=== PATIENT | male | born 1960 | race African-American/Black ===

== ENCOUNTER 2018-02-11 18:42 | Inpatient (IN) | payer MEDICARE, MEDICAID ==
[~2018-02-11] VITALS: Ht 180.3 cm; Wt 106.6 kg
[~2018-02-11 18:42] MED LIST: ASPI-1169 PO; ATOR10TA PO
[2018-02-11] MEDS ORDERED: BUPR150T10 (19:48)
[2018-02-11] MEDS ORDERED: DIVA-76 (19:48)
[2018-02-11] MEDS ORDERED: ATOR40TA PO (19:48)
[2018-02-11] MEDS ORDERED: MAGNESIUM HYDROXIDE 30 ML UDC PO PRN (20:30)
[2018-02-11] MEDS ORDERED: ACETAMINOPHEN 325 MG TABLET PO PRN (20:30)
[2018-02-11] MEDS ORDERED: MAG HYDROX/AL HYDROX/SIMETH 30 ML UDC PO PRN (20:30)
[2018-02-11] MEDS ORDERED: ZOLPIDEM TARTRATE 5 MG TABLET PO PRN (20:30)
[2018-02-11 20:41] VITALS: BP 137/78
[2018-02-11 21:49] VITALS: BP 149/91
[2018-02-11] MEDS ORDERED: ASPI-605 PO (22:27)
--- NOTE | 2018-02-11 23:44 | NUR ---
ADMISSION NOTES ADMITTED THIS 58Y/O MALE PATIENT ADMIT FROM [facility] PT IS ON 5150 HOLD FOR DTS , PER HOLD PT. DEPRESSIVE ,SI ,AND SAD HOPELESS, WORTHLESS AND THOUGHT OF SI, UPON FACE TO FACE ASSESSMENT PATIENT IS A&O X3 DEPRESSED, CALM COOPERTIVE ,DENIES ANY SI HI AT THIS TIME, PT. IS POOR HISTORIAN, POOR INSIGHT ,POOR JUDGEMENT , V/S WNL, NO ACUTE DISTRESS NOTED, PT. REFUSED TO SIGN ALL ADMISSION PAPERS ,PT. STATED , MY SKIN IS INTACT, MD AWARE AND NOTIFIED OF THE ADMISSION, ENCOURAGED PT. VERBALIZED ANY FEELING CONCERN TO STAFF, ORIENT TO UNIT POLICY, WILL CONTINUE TO MONITOR FOR Q15 SAFETY AND BEHAVIOR.
--- NOTE | 2018-02-12 04:07 | NUR ---
GPS RN NOTE, PATIENT NEEDS A MEDICATION RECONCILIATION. PAGED [facility] AND INFORMED DR COLLINS MY FINDINGS. DR COLLINS SAID HE WILL DO THE MEDICATION RECONCILIATION. ALL ORDERS NOTED AND CARRIED OUT WILL CONTINUE TO MONITOR THIS PATIENT.
[2018-02-12 06:55] LABS: HEMATOCRIT 39 % (39-51); HEMOGLOBIN 12.8 g/dL (13.5-17.5); MEAN CORPUSCULAR HGB CONC 33 g/dl (31.0-36.0); MEAN CORPUSCULAR VOLUME 87 fL (80-96); PLATELET COUNT (AUTO) 212 /CMM (150-450); RDW COEFFICIENT OF VARIATION 17.7 (11.5-15.0); RED BLOOD CELL COUNT(AUTO) 4.44 MIL/uL (4.5-6.0); WHITE BLOOD COUNT (AUTO) 5.4 K/uL (4.3-11.0)
[2018-02-12] MEDS: LORAZEPAM 1 MG TABLET PO PRN ×2 (06:55→16:25)
[2018-02-12 07:31] LABS: BILIRUBIN,TOTAL 0.2 mg/dL (0.2-1.0); CREATININE 1.1 mg/dL (0.6-1.3); POTASSIUM 4.1 mmol/L (3.5-5.1); TOTAL PROTEIN, SERUM 6.9 g/dL (6.4-8.2)
[2018-02-12 08:20] VITALS: BP 150/89
[2018-02-12] MEDS: NICOTINE PATCH (14MG) 14 MG PATCH.TD24 TD SCH (08:34)
[2018-02-12 10:21] LABS: EOSINOPHILS % (MANUAL) 3 % (0-4); LYMPHOCYTES % (MANUAL) 35 % (16-48); MONOCYTES % (MANUAL) 11 % (0-11.0); NEUTROPHILS % (MANUAL) 51 (42-76)
[2018-02-12] MEDS: DIVALPROEX SODIUM 500 MG TABLET.DR PO SCH ×2 (12:59→21:15)
[2018-02-12] MEDS: BUPROPION XL 150 MG TAB.ER.24 PO SCH (12:59)
[2018-02-12 16:00] VITALS: BP 141/91
--- NOTE | 2018-02-12 16:26 | NUR ---
GPS/RN PATIENT REPORTS EXTREME ANXIETY, ADMINISTERED ATIVAN 1 MG, PER PATIENT REQUEST. WILL CONTINUE TO MONITOR.
[2018-02-12] MEDS: ASPIRIN EC 81 MG TABLET.DR PO SCH (16:47)
[2018-02-12 20:02] VITALS: BP 140/90
[2018-02-12] MEDS: ATORVASTATIN 40 MG TABLET PO SCH (21:15)
[2018-02-12] MEDS: TEMAZEPAM 15 MG CAPSULE PO PRN (21:52)
[2018-02-13] MEDS: LORAZEPAM 1 MG TABLET PO PRN ×2 (06:49→14:53)
--- NOTE | 2018-02-13 06:49 | NUR ---
GPS RN NOTES: PATIENT IS VERY ANXIOUS AND RESTLESS AND PATIENT IS REQUESTING FOR ATIVAN. VSS. ADMINISTERED ATIVAN 1MG PO ORDERED. WILL CONTINUE TO MONITOR.
[2018-02-13 08:00] VITALS: BP 140/92
[2018-02-13] MEDS: DIVALPROEX SODIUM 500 MG TABLET.DR PO SCH ×2 (08:21→21:22)
[2018-02-13] MEDS: BUPROPION XL 150 MG TAB.ER.24 PO SCH (08:21)
[2018-02-13] MEDS: ASPIRIN EC 81 MG TABLET.DR PO SCH (08:21)
[2018-02-13] MEDS: NICOTINE PATCH (14MG) 14 MG PATCH.TD24 TD SCH (08:21)
[2018-02-13 16:00] VITALS: BP 138/87
--- NOTE | 2018-02-13 16:33 | NUR ---
Initial Discharge Plan: Pt resides at [address] [place] [address] and his home number is . Per pt, he would not like to return home and would want to be transferred to a assisted facility outside of the [facility]. SW will speak to the pt, family and the MD regarding appropriate discharge plans. SW will form a safe and proper discharge plan
--- NOTE | 2018-02-13 16:34 | NUR ---
BRENT contacted the pt's mother, Sarika Sherwood and discussed potential discharge plans. Mother stated that whatever his team here at [facility] thinks is appropriate is fine for her.
[2018-02-13 20:17] VITALS: BP 137/83
[2018-02-13] MEDS: ATORVASTATIN 40 MG TABLET PO SCH (21:23)
[2018-02-13] MEDS: TEMAZEPAM 15 MG CAPSULE PO PRN (22:08)
[2018-02-14 08:00] VITALS: BP 139/86
[2018-02-14] MEDS: DIVALPROEX SODIUM 500 MG TABLET.DR PO SCH (08:14)
[2018-02-14] MEDS: NICOTINE PATCH (14MG) 14 MG PATCH.TD24 TD SCH (08:14)
[2018-02-14] MEDS: ASPIRIN EC 81 MG TABLET.DR PO SCH (08:14)
[2018-02-14] MEDS: BUPROPION XL 150 MG TAB.ER.24 PO SCH (08:14)
[2018-02-14] MEDS: LORAZEPAM 1 MG TABLET PO PRN (08:55)
--- NOTE | 2018-02-14 12:21 | NUR ---
SW spoke to the pt about his DC plan. Pt stated that he wanted to go to his brother's house but was unable to provide a phone number to confirm the discharge plan. Pt then decided that he wanted to be discharged to a homeless skilled nursing. BRENT will work on homeless skilled nursing referrals, food resources and bus tokens.
--- NOTE | 2018-02-14 12:35 | NUR ---
BRENT spoke to Arvind Keith regarding a discharge plan for the pt to go to a homeless mcc ([address] [place] [id number]) around 4:30.
--- NOTE | 2018-02-14 14:50 | NUR ---
RN NOTES PT WAS DISCHARGED AMA STATUS. PT WAS TOLD THAT DR. MESSER WANTED HIM TO WAIT SO HE COULD SPEAK WITH HIM BEFORE DECIDING TO GO. PT REFUSED AND SAID HE WANTED TO GO AGAINST MEDICAL ADVICE SO HE COULD GET TO THE CORRECTION BEFORE IT CLOSED. AMA FORM WAS SIGNED AND BELONGINGS WERE RETURNED TO PT. PT WAS GIVEN BUS TOKENS AND TAKEN TO THE BUS STATION IN ORDER TO GO TO THE CORRECTION. PT DENIED SI/HI AND DENIED AUDITORY AND VISUAL HALLUCINATIONS PRIOR TO DISCHARGE. DR. MESSER WAS MADE AWARE PT WAS GOING TO LEAVE AMA WITHOUT SPEAKING TO HIM.
--- NOTE | 2018-02-14 16:02 | NUR ---
Discharge Note: Patient, Keyur Witt, left AMA but was provided with homeless residential referrals, food referrals and three bus tokens for the pt to arrive at the recommended residential. SW spoke to Arvind at [facility] ([address] [place] [address]). Pt was on voluntary status, alert and oriented x4 (time, place, self and situation). Pt was also provided with the substance abuse referrals listed below: [facility] [address] [place] [address] Tel. [facility] [address] [place] Provider Mental Health Treatment Tele-dermatology HIV Services Telemedicine Services [facility] [address] [place] [address] [facility] [address] [place] [address]
== END 2018-02-14 14:50 | disposition left against medical advice (07) | DRG 885 ==
LOC: GPS 18:42
PROVIDERS: ADMIT Hospitalist; ATTEND Psychiatry & Neurology Psychiatry
DX: F31.30 Bipolar disorder, current episode depressed, mild or moderate severity, unspecified (principal); E66.01 Morbid (severe) obesity due to excess calories; R45.851 Suicidal ideations; E78.5 Hyperlipidemia, unspecified; F14.10 Cocaine abuse, uncomplicated; I10 Essential (primary) hypertension; F41.9 Anxiety disorder, unspecified; Z68.32 Body mass index [BMI] 32.0-32.9, adult; R74.0 Nonspecific elevation of levels of transaminase and lactic acid dehydrogenase [LDH]
CPT/HCPCS: 36415; 80053-TC; 80061-TC; 85025-TC; 87081-TC

== ENCOUNTER 2019-02-21 16:52 | Inpatient (IN) | payer MEDICARE, MEDICAID ==
[~2019-02-21] VITALS: Ht 182.9 cm; Wt 113.4 kg
[~2019-02-21 16:52] MED LIST changes: -ASPI-1169 PO; +ASPI-605 PO; -ATOR10TA PO; +ATOR40TA PO
--- NOTE | 2019-02-21 17:45 | NUR ---
PATIENT ARRIVED AMBULATORY. WITH FEELING OF DEPRESSION W/ SI, PLAN ON OVERDOSING W/ PILLS. PATIENT A&O X 4, NO ACUTE DISTRESS. PATIENT REPORTS LIVING IN AN APARTMENT AT [place]. WHEN ASKED IF PATIENT HAS ACCESS TO ANY PILLS OR MEDICATIONS, PATIENT DOES NOT HAVE ANY MEDICATIONS WITH HIM. AWAITING FOR
[2019-02-21 18:01] LABS: BASOPHILS % (AUTO) 0.6 % (0.0-2.0); EOSINOPHILS % (AUTO) 0.9 % (0.0-6.0); HEMATOCRIT 41 % (39-51); HEMOGLOBIN 13.6 g/dL (13.5-17.5); LYMPHOCYTES # (AUTO) 1.1 /CMM (0.8-4.8); LYMPHOCYTES % (AUTO) 20.4 % (20.0-44.0); MEAN CORPUSCULAR HGB CONC 33 g/dl (31.0-36.0); MEAN CORPUSCULAR VOLUME 87 fL (80-96); MONOCYTES # (AUTO) 0.5 /CMM (0.1-1.30); MONOCYTES % (AUTO) 8.9 % (2.0-12.0); NEUTROPHILS # (AUTO) 3.7 /CMM (1.8-8.9); NEUTROPHILS % (AUTO) 69.2 % (43.0-81.0); PLATELET COUNT (AUTO) 225 /CMM (150-450); RED BLOOD CELL COUNT(AUTO) 4.75 MIL/uL (4.5-6.0); WHITE BLOOD COUNT (AUTO) 5.3 K/uL (4.3-11.0)
[2019-02-21 18:08] LABS: CALCIUM, SERUM 9.5 mg/dL (8.5-10.1); CARBON DIOXIDE 29 mmol/L (21-32); CHLORIDE 105 mmol/L (98-107); CREATININE 1.4 mg/dL (0.6-1.3); GLUCOSE 172 mg/dL (74-106); POTASSIUM 4.2 mmol/L (3.5-5.1); SODIUM SERUM 142 mmol/L (136-145); UREA NITROGEN, BLOOD 22 mg/dL (7-18)
[2019-02-21 18:22] LABS: ALANINE AMINOTRANSFERASE 39 U/L (12-78); ALBUMIN 3.3 g/dL (3.4-5.0); ALCOHOL, BLOOD 35 mg/dL (0-0); ALKALINE PHOSPHATASE 74 U/L (46-116); ASPARTATE AMINOTRANSFERASE 17 U/L (15-37); BILIRUBIN,TOTAL 0.2 mg/dL (0.2-1.0); TOTAL PROTEIN, SERUM 7.3 g/dL (6.4-8.2)
[2019-02-21 18:26] LABS: ACETAMINOPHEN < 10 ug/ml (10-30)
[2019-02-21] MEDS ORDERED: IV NS 0.9% 1,000 ML BAG IV ONE (18:30)
--- NOTE | 2019-02-21 19:19 | NUR ---
PT RECEIVED FROM ZAKIYA MOTA FOR BETO. PT IN BED AAOX4. NAD.
--- NOTE | 2019-02-21 19:20 | NUR ---
PT RECEIVED FROM ZAKIYA MOTA FOR BETO. IN BED AAOX4. NAD, BREATHING EVEN AND UNLABORED.
--- NOTE | 2019-02-21 19:22 | NUR ---
PATIENT RESTING ON BED. NO ACUTE DISTRESS. AWAITING URINE SAMPLE, PATIENT AWARE. REOPORT GIVEN TO RUTH ANN SIGALA FOR BETO
[2019-02-21 19:45] LABS: APPEARANCE,URINE Clear (CLEAR); BILIRUBIN,URINE SMALL (NEGATIVE); BLOOD, URINE Negative Ery/uL (NEGATIVE); COLOR,URINE Yellow (YELLOW); KETONES,URINE 15 (NEGATIVE); LEUKOCYTE ESTERASE ,URINE Negative (NEGATIVE); NITRITE, URINE Negative (NEGATIVE); PH,URINE 6.5 (5.0-8.0); PROTEIN,URINE 30 mg/dl (NEGATIVE); UGLUCOSE Negative (NEGATIVE); UROBILINOGEN,URINE 0.2 EU/dL (0.2)
[2019-02-21 20:04] LABS: BACTERIA,URINE Rare /HPF (None Seen); HYALINE CASTS, URINE Few /LPF (None Seen); MUCUS,URINE Few /LPF (None Seen); RBC,URINE NONE SEEN /HPF (0-2); SQUAMOUS EPITHELIAL CELL,UR None Seen /HPF (None Seen); WBC,URINE NONE SEEN /HPF (0-3)
--- NOTE | 2019-02-21 21:44 | NUR ---
REPORT GIVEN TO ZAKIYA LAWLER FOR BETO. PT GOING TO 214
--- NOTE | 2019-02-21 21:55 | NUR ---
PT BROUGHT UP TO UNIT BY EMT. PT STABLE FOR TRANSPORT. NAD, BRAETHING EVEN AND UNLABORED. PT REFUSED VS TO BE TAKEN.
--- NOTE | 2019-02-21 22:00 | NUR ---
GPS HEALTH AND WELLNESS MANAGER NOTE: ADMITTED A 59 YEAR OLD MALE FROM [facility] ER, INITIALLY CAME FROM HOME. PATIENT ARRIVED TO THE UNIT AEOUND 2200 VIA WHEELCHAIR, ACCOMPANIED BY 1 MALE ER STAFF AND PLACED PATIENT IN HIS ROOM. PATOIENT ADMITTED ON VOLUNTARY STATUS. PATIENT IS ADMITTED FOR DEPRESSION WITH SUICIDAL IDEATION X 1 WEEK AND PLAN TO OVERDOSE ON PILLS. PATIENT IS A/O X3-4, SHOWS NO S/S OF ANY PAIN. DENIES ANY SI/HI AT THIS TIME. PATIENT IS CALM, COOPERATIVE, DEPRESSED, OBEYS INSTRUCTIONS, WELL GROOMED, THOUGHT PROCESS INTACT. APPROPRIATE BUT ANXIOUS. BELONGINGS INVENTORIED AND CHECKED FOR CONTRABAND. PATIENT IS A CURRENT SMOKER, OFFERED NICOTINE PATCH AND REFUSED, HE IS A FULL CODE. SKIN WARM DRY AND INTACT, MRSA SCREEN DONE IN ER. DENIES ANY PAST MED.HX AND SURGERY. CONSENTS SIGNED. PATIENT IS UNDER THE PSYCHIATRIC CARE OF DR. MESSER, MEDICAL CARE OF DR. HOOK. NO APPARENT DISTRESS NOTED. BED LOCKED AND PLACED ON LOWEST POSITION TO MAINTAIN SAFETY. WILL CONTINUE TO MONITOR Q 15 MINS. FOR SAFETY AND BEHAVIOR.
[2019-02-21] MEDS ORDERED: ACETAMINOPHEN 325 MG TABLET PO PRN (22:30)
[2019-02-21] MEDS ORDERED: MAG HYDROX/AL HYDROX/SIMETH 30 ML UDC PO PRN (22:30)
[2019-02-21] MEDS ORDERED: MAGNESIUM HYDROXIDE 30 ML UDC PO PRN (22:30)
[2019-02-21] MEDS ORDERED: LORAZEPAM 0.5 MG TABLET PO PRN (22:30)
[2019-02-22 07:26] LABS: BASOPHILS % (AUTO) 0.3 % (0.0-2.0); EOSINOPHILS % (AUTO) 1.4 % (0.0-6.0); HEMATOCRIT 39 % (39-51); HEMOGLOBIN 12.7 g/dL (13.5-17.5); LYMPHOCYTES # (AUTO) 1.3 /CMM (0.8-4.8); LYMPHOCYTES % (AUTO) 25.2 % (20.0-44.0); MEAN CORPUSCULAR HGB CONC 33 g/dl (31.0-36.0); MEAN CORPUSCULAR VOLUME 87 fL (80-96); MONOCYTES # (AUTO) 0.7 /CMM (0.1-1.30); MONOCYTES % (AUTO) 13.3 % (2.0-12.0); NEUTROPHILS # (AUTO) 3.1 /CMM (1.8-8.9); NEUTROPHILS % (AUTO) 59.8 % (43.0-81.0); PLATELET COUNT (AUTO) 201 /CMM (150-450); WHITE BLOOD COUNT (AUTO) 5.1 K/uL (4.3-11.0)
[2019-02-22 07:42] LABS: CHOLESTEROL 219 mg/dL (<200); HDL CHOLESTEROL 49 mg/dL (40-60); LDL 147 mg/dL (0-99); TRIGLYCERIDES 97 mg/dL (30-150)
[2019-02-22 07:45] LABS: ALBUMIN 2.9 g/dL (3.4-5.0); BILIRUBIN,TOTAL 0.2 mg/dL (0.2-1.0); CALCIUM, SERUM 8.9 mg/dL (8.5-10.1); CREATININE 1.2 mg/dL (0.6-1.3); POTASSIUM 5.1 mmol/L (3.5-5.1); TOTAL PROTEIN, SERUM 6.5 g/dL (6.4-8.2)
[2019-02-22 08:00] VITALS: BP 129/76
[2019-02-22] MEDS ORDERED: DIVA250T47 PO (08:23)
[2019-02-22] MEDS ORDERED: BUPR-51 PO (08:23)
[2019-02-22] MEDS ORDERED: TEMA15CA5 PO (08:23)
[2019-02-22] MEDS ORDERED: LORA-259 PO (08:23)
[2019-02-22] MEDS: DIVALPROEX SODIUM 500 MG TABLET.DR PO SCH ×2 (11:08→21:23)
--- NOTE | 2019-02-22 11:36 | NUR ---
Initial Discharge Plan: Pt currently rents a room in a house located at [address] [place], [place] [id number]; ([phone]). Per pt, he would like to return to this home once he is stabilized on his medications. BRENT will work with the pt and the MD regarding appropriate discharge planning. SW will form a safe and proper discharge plan.
--- NOTE | 2019-02-22 15:01 | NUR ---
Group note: Pt was encouraged to join group therapy session on 02/22/19 at 2:00pm. Pt. unable to attend group.
[2019-02-22 16:00] VITALS: BP 138/87
--- NOTE | 2019-02-22 19:30 | NUR ---
GPS RN NOTE, RECEIVED PATIENT AWAKE AND IN BED, NO S/S OR COMPLAINTS OF PAIN AT THIS TIME. PATIENT IS DISPLAYING NO S/S OF APPARENT DISTRESS AT THIS TIME. PATIENT BREATHING IS UNLABORED WITH EQUAL RISE AND FALL OF THE CHEST. PATIENT IS ALERT AND ORIENTED X 4 ON ROOM AIR WITH A SPO2 OF 98%. PATIENT IS MED COMPLAINT, DISORGANIZED, DEPRESSED, COOPERATIVE, AND ANXIOUS AT TIMES. PATIENT DENIES SUICIDE AND HOMICIDAL IDEATIONS AT THIS TIME. PATIENT ASSISTED WITH TURNING AND REPOSITIONING Q2HR AND PRN FOR COMFORT AND CIRCULATION. PATIENT HAS NO NEEDS AT THIS TIME. PATIENT EDUCATED ON THE USE OF THE CALL SAHU. PATIENT BED SIDE RAILS ARE UP X 2 FOR SAFETY, BED IS LOCKED, AND LOW WILL CONTINUE TO MONITOR AND MAINTAIN SAFETY.
[2019-02-22 19:50] VITALS: BP 142/90
[2019-02-22] MEDS: LORAZEPAM 0.5 MG TABLET PO PRN (20:27)
--- NOTE | 2019-02-22 20:27 | NUR ---
GPS RN NOTE, PATIENT HAS A COMPLAINT OF FEELING ANXIOUS AND IS REQUESTING ATIVAN AT THIS TIME. PATIENT VITAL SIGNS ARE STABLE. GAVE ATIVAN 1MG PO Q6HR PRN ORDERED. WILL REASSESS FOR ANXIETY AND I WILL CONTINUE TO MONITOR THIS PATIENT.
[2019-02-23 08:00] VITALS: BP 134/83
[2019-02-23] MEDS: BUPROPION XL 150 MG TAB.ER.24 PO SCH (08:57)
[2019-02-23] MEDS: DIVALPROEX SODIUM 500 MG TABLET.DR PO SCH ×2 (08:57→21:06)
[2019-02-23 16:00] VITALS: BP 126/81
--- NOTE | 2019-02-23 19:30 | NUR ---
GPS RN NOTE, RECEIVED PATIENT AWAKE AND IN BED, NO S/S OR COMPLAINTS OF PAIN AT THIS TIME. PATIENT IS DISPLAYING NO S/S OF APPARENT DISTRESS AT THIS TIME. PATIENT BREATHING IS UNLABORED WITH EQUAL RISE AND FALL OF THE CHEST. PATIENT IS ALERT AND ORIENTED X 4 ON ROOM AIR WITH A SPO2 OF 98%. PATIENT IS MED COMPLAINT, DEPRESSED, COOPERATIVE, AND ANXIOUS AT TIMES. PATIENT DENIES SUICIDE AND HOMICIDAL IDEATIONS AT THIS TIME. PATIENT ASSISTED WITH TURNING AND REPOSITIONING Q2HR AND PRN FOR COMFORT AND CIRCULATION. PATIENT HAS NO NEEDS AT THIS TIME. PATIENT EDUCATED ON THE USE OF THE CALL SAHU. PATIENT BED SIDE RAILS ARE UP X 2 FOR SAFETY, BED IS LOCKED, AND LOW WILL CONTINUE TO MONITOR AND MAINTAIN SAFETY.
[2019-02-23 19:33] VITALS: BP 132/80
[2019-02-23] MEDS: LORAZEPAM 0.5 MG TABLET PO PRN (21:06)
[2019-02-23] MEDS: ZOLPIDEM TARTRATE 5 MG TABLET PO PRN (22:28)
--- NOTE | 2019-02-23 22:28 | NUR ---
GPS RN NOTE, PATIENT HAS A COMPLAINT OF NOT BEING ABLE TO SLEEP AND IS REQUESTING AMBIEN AT THIS TIME. PATIENT VITAL SIGNS ARE STABLE. GAVE AMBIEN 5 MG PO HS PRN ORDERED. WILL REASSESS FOR INSOMNIA AND I WILL CONTINUE TO MONITOR THIS PATIENT.
[2019-02-24 08:00] VITALS: BP 125/86
[2019-02-24] MEDS: DIVALPROEX SODIUM 500 MG TABLET.DR PO SCH ×2 (08:31→21:19)
[2019-02-24] MEDS: BUPROPION XL 150 MG TAB.ER.24 PO SCH (08:31)
[2019-02-24] MEDS: DIVALPROEX SODIUM 250 MG TABLET.DR PO SCH (17:08)
[2019-02-24 20:58] VITALS: BP 130/82
[2019-02-24] MEDS: LORAZEPAM 0.5 MG TABLET PO PRN (21:18)
[2019-02-25 08:00] VITALS: BP 142/86
[2019-02-25] MEDS: DIVALPROEX SODIUM 500 MG TABLET.DR PO SCH ×2 (08:48→20:44)
--- NOTE | 2019-02-25 10:15 | NUR ---
SW conducted a substance abuse intervention with the pt due to his cocaine and cannabis use.
[2019-02-25] MEDS: DIVALPROEX SODIUM 250 MG TABLET.DR PO SCH (12:24)
--- NOTE | 2019-02-25 14:57 | NUR ---
GROUP NOTE: SW prompted pt to attend [facility] therpay on 02/25/19 at 2:00pm. Pt refused to attend.
[2019-02-25 16:00] VITALS: BP 141/90
[2019-02-25 20:12] VITALS: BP 119/63
[2019-02-25] MEDS: ZOLPIDEM TARTRATE 5 MG TABLET PO PRN (20:44)
[2019-02-26 08:00] VITALS: BP 150/79
[2019-02-26] MEDS: DIVALPROEX SODIUM 500 MG TABLET.DR PO SCH ×2 (08:56→21:47)
[2019-02-26] MEDS: DIVALPROEX SODIUM 250 MG TABLET.DR PO SCH (12:41)
--- NOTE | 2019-02-26 15:05 | NUR ---
Group Note: Pt attended group therapy on 02/26/19 at 2pm discussing the topic of their goals in areas of both their hospitalization and their personal life. 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 I think that when I focus on the lives of others and do good for them, I feel better about myself and my life.� O: Pt was present during the group session and was engaged. Pt appeared to be in a euthymic mood and presented with a calm affect. Pt maintained appropriate eye contact and had an appropriate tone of voice. Correction through the group, the pt appeared to be anxious and when the SW asked him how he was feeling he stated that he was drifting off and confirmed that he was not triggered by another pt. A: Pt expressed that he understands that he is in need of structure in his life. Pt stated that when he was focusing on his website he also had a sponsor and would attend meetings that would keep his schedule in check. Pt stated that the structure can help him stay away from his problems. P: Pt will continue milieu treatment and medication stabilization.
[2019-02-26 16:00] VITALS: BP 134/77
--- NOTE | 2019-02-26 18:43 | NUR ---
MS RN CALLED DR. VALENTINE REGARDING A SWOLLEN TOOTH W/ ORDER MADE AND CARRIED OUT.
[2019-02-26] MEDS: CLINDAMYCIN HCL 150 MG CAPSULE PO SCH (19:53)
[2019-02-26] MEDS: LORAZEPAM 0.5 MG TABLET PO PRN (19:54)
[2019-02-26 20:21] VITALS: BP 141/87
[2019-02-26] MEDS: ZOLPIDEM TARTRATE 5 MG TABLET PO PRN (21:48)
[2019-02-27 08:00] VITALS: BP 122/73
[2019-02-27] MEDS: DIVALPROEX SODIUM 500 MG TABLET.DR PO SCH ×2 (08:27→21:24)
[2019-02-27] MEDS: CLINDAMYCIN HCL 150 MG CAPSULE PO SCH ×3 (08:27→18:15)
[2019-02-27] MEDS: DIVALPROEX SODIUM 250 MG TABLET.DR PO SCH (14:16)
--- NOTE | 2019-02-27 15:20 | NUR ---
Group Note: SW prompted pt to attend group therapy on 02/27/19 at 2pm discussing patients right but the pt refused to attend. He stated that he did not sleep the previous night and that he would like to take a nap.
[2019-02-27 16:00] VITALS: BP 132/77
[2019-02-27] MEDS: LORAZEPAM 0.5 MG TABLET PO PRN (18:16)
--- NOTE | 2019-02-27 18:16 | NUR ---
RN NOTES ADMINISTERED ATIVAN 1 MG PO PRN FOR ANXIETY PER PATIENT REQUEST, V/S TAKEN BP-132/77, P-89, CONTINUED MONITORING.
[2019-02-27 20:00] VITALS: BP 129/77
[2019-02-27] MEDS: ZOLPIDEM TARTRATE 5 MG TABLET PO PRN (21:24)
[2019-02-28 08:00] VITALS: BP 139/99
[2019-02-28] MEDS: CLINDAMYCIN HCL 150 MG CAPSULE PO SCH ×3 (08:15→17:14)
[2019-02-28] MEDS: DIVALPROEX SODIUM 500 MG TABLET.DR PO SCH ×2 (08:15→21:03)
[2019-02-28] MEDS: LORAZEPAM 0.5 MG TABLET PO PRN (08:16)
--- NOTE | 2019-02-28 12:22 | NUR ---
BRENT sent a referral to [facility] with attention to Torito and CJ to the fax number: [phone].
--- NOTE | 2019-02-28 12:24 | NUR ---
BRENT faxed a referral to [facility] with attention to Sasha and Shaylee to the fax number: [phone].
[2019-02-28] MEDS: DIVALPROEX SODIUM 250 MG TABLET.DR PO SCH (12:40)
--- NOTE | 2019-02-28 13:10 | NUR ---
ALYSIA from [facility] ([phone]) contacted the SW and stated that the pt was accepted to their facility upon discharge.
--- NOTE | 2019-02-28 15:25 | NUR ---
Group Note: Pt was encouraged to attend group therapy on 02/28/19 at 2pm discussing the topic of depression but the pt stated that he would like to take his afternoon nap instead because he did not sleep well.
[2019-02-28 16:00] VITALS: BP 128/87
[2019-02-28 20:00] VITALS: BP 153/74
[2019-03-01 08:00] VITALS: BP 133/92
[2019-03-01] MEDS: CLINDAMYCIN HCL 150 MG CAPSULE PO SCH (08:06)
[2019-03-01] MEDS: DIVALPROEX SODIUM 500 MG TABLET.DR PO SCH (08:06)
--- NOTE | 2019-03-01 09:45 | NUR ---
RN-CO: Patient was seen and examined by Dr Narvaez and ordered to discharge patient today. Patient is calm and cooperative to care. Denied suicidal and homicidal ideation. Denied auditory and visual hallucination. No acute distress noted, V/S: 133/92,98,18,90,98 %,0/10. Report was given to Shira SIGALA. Patient refused to notify any family members not friends for discharge. He signed all discharge papers after RN explained to him and he verbalized understanding.
--- NOTE | 2019-03-01 09:59 | NUR ---
BRENT faxed a clearance note and a medical consent form to [facility] to the fax number: [phone].
--- NOTE | 2019-03-01 12:36 | NUR ---
Group Note: Pt attended group therapy on 03/01/19 at 11:30 discussing the topic of social supports for when they are in the hospital and for once they are discharged. S: Pt stated, �My support group is my oriental orthodox. They provide me with spiritual support which is very important. I think that helps me in everyday life and to deal with difficult situations. But also think it takes a lot of work to maintain your support group. You have to do your part and always work on it.� O: Pt was present during the group session and was engaged. Pt appeared to be in a euthymic mood and presented with a calm affect. Pt maintained appropriate eye contact and had an appropriate tone of voice. A: Pt. was open and shared about personal life experiences where he has also been a support system to others, and the many lessons he has learned about the importance of helping others in need while maintaining healthy boundaries. P: Pt will continue milieu treatment and medication stabilization.
--- NOTE | 2019-03-01 13:39 | NUR ---
RN-CO: Patient was picked up by [facility], report was given to Shira SIGALA in [facility] and to EMT. Valuables and clothes was given back.
--- NOTE | 2019-03-01 13:47 | NUR ---
Discharge Note: [facility] ([facility] located at [address] [place] [address]; ([phone]). Pt was transported via [facility] at 1PM. Pt did not want family to be notified. Upon discharge, the pt appeared to be in a euthymic mood and presented with a calm and cooperative affect. Pt denied both suicidal and homicidal ideation as well as auditory and visual hallucinations. Pt will be under the care of his psychiatrist, Dr. Narvae[place], [place] [address] [facility] [address] [address]; and his time study statistician, Dr. Sam[place], [place] [address] [place] [address]; . Substance Abuse Referrals [facility] [address] [facility] [place] [address] Tel. �[facility] �Primary Care �[facility] [address] MD Provider �Mental Health Treatment �Tele-dermatology �HIV Services �Telemedicine Services [facility] [address] [place] [address] [facility] [address] [place] [address] Smoking Cessation Referrals: [facility] 800-LUNGUSA [facility] [phone] Pt has a phone meeting called [facility] scheduled for 03/02/19 at 10AM with the phone number [phone].
--- NOTE | 2019-03-15 16:08 | NUR ---
15 Day Substance Abuse Follow Up: Pt is exempt from the follow up due to his discharge to a retirement facility called [facility].
== END 2019-03-01 13:45 | DRG 885 ==
LOC: ER 16:56 → GPS 21:14
PROVIDERS: ADMIT Psychiatry & Neurology Psychiatry; ATTEND Internal Medicine
DX: F31.30 Bipolar disorder, current episode depressed, mild or moderate severity, unspecified (principal); N17.0 Acute kidney failure with tubular necrosis; R45.851 Suicidal ideations; I10 Essential (primary) hypertension; E86.0 Dehydration; Z88.8 Allergy status to other drugs, medicaments and biological substances; Z79.82 Long term (current) use of aspirin; Z79.899 Other long term (current) drug therapy; E78.5 Hyperlipidemia, unspecified; F10.10 Alcohol abuse, uncomplicated; F12.90 Cannabis use, unspecified, uncomplicated; F14.10 Cocaine abuse, uncomplicated; F29 Unspecified psychosis not due to a substance or known physiological condition; Z68.33 Body mass index [BMI] 33.0-33.9, adult; Z91.5 Personal history of self-harm; Z83.3 Family history of diabetes mellitus; Z81.8 Family history of other mental and behavioral disorders; Y90.1 Blood alcohol level of 20-39 mg/100 ml; F41.9 Anxiety disorder, unspecified
CPT/HCPCS: 36415; 80048-TC; 80053-TC; 80061-TC; 80076-TC; 80164-TC; 80305; 81000-TC; 85025-TC; 87081-TC; G0480; J7030

== ENCOUNTER 2019-05-30 12:27 | Inpatient (IN) | payer MEDICARE, MEDICAID ==
[~2019-05-30] VITALS: Ht 180.3 cm; Wt 113.4 kg
--- NOTE | 2019-05-30 12:32 | NUR ---
PT C/O SUICIDAL THOUGHTS x 3 DAYS, TO OVERDOSE. "I'M FEELING DEPRESSED", PT IS AAOX4, NOT IN RESPIRATORY DISTRESS, HOOKED TO MONITOR, KEPT RESTED AND COMFORTABLE, WILL CONTINUE TO MONITOR.
--- NOTE | 2019-05-30 12:44 | NUR ---
URINE SPECIMEN COLLECTED AND SENT TO LAB.
--- NOTE | 2019-05-30 12:47 | NUR ---
SEEN AND EXAMINED BY ELLIOTT DEL TORO.
[2019-05-30 13:01] LABS: BASOPHILS % (AUTO) 0.8 % (0.0-2.0); EOSINOPHILS % (AUTO) 1.2 % (0.0-6.0); HEMATOCRIT 46 % (39-51); HEMOGLOBIN 15.1 g/dL (13.5-17.5); LYMPHOCYTES # (AUTO) 1.2 /CMM (0.8-4.8); LYMPHOCYTES % (AUTO) 24.6 % (20.0-44.0); MEAN CORPUSCULAR HGB CONC 33 g/dl (31.0-36.0); MEAN CORPUSCULAR VOLUME 87 fL (80-96); MONOCYTES # (AUTO) 0.6 /CMM (0.1-1.30); MONOCYTES % (AUTO) 12.6 % (2.0-12.0); NEUTROPHILS # (AUTO) 3.1 /CMM (1.8-8.9); NEUTROPHILS % (AUTO) 60.8 % (43.0-81.0); PLATELET COUNT (AUTO) 223 /CMM (150-450); RED BLOOD CELL COUNT(AUTO) 5.23 MIL/uL (4.5-6.0); WHITE BLOOD COUNT (AUTO) 5.1 K/uL (4.3-11.0)
[2019-05-30 13:04] LABS: APPEARANCE,URINE Clear (CLEAR); BILIRUBIN,URINE SMALL (NEGATIVE); BLOOD, URINE Negative Ery/uL (NEGATIVE); COLOR,URINE Yellow (YELLOW); KETONES,URINE 15 (NEGATIVE); LEUKOCYTE ESTERASE ,URINE Negative (NEGATIVE); NITRITE, URINE Negative (NEGATIVE); PROTEIN,URINE Trace mg/dl (NEGATIVE); UGLUCOSE Negative (NEGATIVE); UROBILINOGEN,URINE 0.2 EU/dL (0.2)
--- NOTE | 2019-05-30 13:04 | NUR ---
FOOD TRAY PROVIDED.
[2019-05-30 13:07] LABS: BACTERIA,URINE Rare /HPF (None Seen); RBC,URINE 0-2 /HPF (0-2); SQUAMOUS EPITHELIAL CELL,UR Rare /HPF (None Seen); WBC,URINE 0-2 /HPF (0-3)
[2019-05-30 13:07] LABS: CALCIUM, SERUM 9.5 mg/dL (8.5-10.1); CREATININE 1.7 mg/dL (0.6-1.3); POTASSIUM 4.1 mmol/L (3.5-5.1)
[2019-05-30 13:21] LABS: ALBUMIN 3.5 g/dL (3.4-5.0); BILIRUBIN,DIRECT 0.1 mg/dL (0.0-0.2); BILIRUBIN,TOTAL 0.1 mg/dL (0.2-1.0)
[2019-05-30] MEDS ORDERED: DIVA-78 PO (15:06)
[2019-05-30] MEDS ORDERED: BUPR150T5 PO (15:06)
[2019-05-30] MEDS ORDERED: TEMA15CA5 PO (15:06)
[2019-05-30] MEDS ORDERED: LORA1TAB PO (15:06)
--- NOTE | 2019-05-30 15:13 | NUR ---
CALLED FOR GPS BED, TURNED IN MOVE SHEET
--- NOTE | 2019-05-30 15:41 | NUR ---
PT GOING TO ROOM 216-A GPS
--- NOTE | 2019-05-30 16:10 | NUR ---
PT REPORT GIVEN TO ZAKIYA ROPER FOR BETO.
[2019-05-30] MEDS ORDERED: MAG HYDROX/AL HYDROX/SIMETH 30 ML UDC PO PRN (17:30)
[2019-05-30] MEDS ORDERED: ZOLPIDEM TARTRATE 5 MG TABLET PO PRN (17:30)
[2019-05-30] MEDS ORDERED: ACETAMINOPHEN 325 MG TABLET PO PRN (17:30)
[2019-05-30] MEDS ORDERED: BLOOD SUGAR DIAGNOSTIC 1 EACH STRIP IN ONE (17:30)
[2019-05-30] MEDS ORDERED: MAGNESIUM HYDROXIDE 30 ML UDC PO PRN (17:30)
[2019-05-30 18:21] VITALS: BP 134/83
--- NOTE | 2019-05-30 18:47 | NUR ---
HOSPITALITY HOUSE SUPERVISOR NOTE: PATIENT IS A 59 YEAR OLD MALE ADMITTED TO [facility] ER. PATIENT IS ON A 5150 HOLD FOR DTS. PER HOLD, "PATIENT IS BIB A FRIEND COMPLAINING OF SI WITH A PLAN TO OD. PATIENT COMPLAINS OF DEPRESSION. PATIENT IS ALERT AND ORIENTED IN ALL SPHERES. HE IS DEPRESSED AND HAS DECREASED SLEEP. PATIENT IS SUICIDAL WITH A PLAN TO OD. PATIENT FEELS HIS MEDICATION IS NOT WORKING. PATIENT ALSO STATES HE IS UPSET OVER HIS PLACE IN LIFE." PATIENT IS CALM AND COOPERATIVE WITH PLAN OF CARE. CONSENTS SIGNED. MRSA SWAB TAKEN IN ER. VSS. NO ACUTE DISTRESS NOTED. NO COMPLAINTS. PATIENT STATES THAT BEFORE HE CAME HERE, HE WAS HAVING SI AND AND "A MILLION THOUGHTS CAME TO MY MIND" BUT OF RIGHT NOW, HE DENIES SI AND STATES THAT HE WILL INFORM A STAFF MEMBER IF HE IS HAVING SI. PATIENT DENIES SI/HI VAH AT THIS TIME. FLAT AFFECT. DEPRESSED MOOD. AMBULATORY WITH STEADY GAIT. ALLERGIES INPUT. CODE STATUS UPDATED (FULL CODE). CLEAR SPEECH. GOOD ATTENTION SPAN. ABLE TO FOCUS. WILL INITIATE Q 15 MINUTE MONITORING FOR SAFETY AND BEHAVIOR PER GPS PROTOCOL. ALERT X3. RESPONDS APPROPRIATELY. PATIENT'S RIGHTS HANDBOOK GIVEN WITH GUIDE TO PRESCRIPTIONS. SKIN INTACT BESIDES RIGHT ARM SCAR, PHOTO TAKEN AND IN CHART. PATIENT CONTINENT. LAST BM 05/30/2019. DR MESSER AND HELADIO SOSA BOTH AWARE OF ADMISSION AND FOR MED RECON WITH ADMITTING ORDERS ALONG WITH PSYCHIATRIC ORDERS.
[2019-05-30 20:21] VITALS: BP 121/69
[2019-05-31 07:10] LABS: ALBUMIN 2.9 g/dL (3.4-5.0); BILIRUBIN,TOTAL 0.1 mg/dL (0.2-1.0); CALCIUM, SERUM 8.4 mg/dL (8.5-10.1); CREATININE 1.3 mg/dL (0.6-1.3); POTASSIUM 4.2 mmol/L (3.5-5.1); TOTAL PROTEIN, SERUM 6.7 g/dL (6.4-8.2)
[2019-05-31 08:00] VITALS: BP 123/84
[2019-05-31] MEDS: LORAZEPAM 0.5 MG TABLET PO PRN ×2 (09:11→21:52)
--- NOTE | 2019-05-31 09:12 | NUR ---
RN NOTE: PATIENT IS COMPLAINING OF ANXIETY. PRN ATIVAN GIVEN.
[2019-05-31 09:51] LABS: CHOLESTEROL 171 mg/dL (<200); HDL CHOLESTEROL 44 mg/dL (40-60); LDL 109 mg/dL (0-99); TRIGLYCERIDES 83 mg/dL (30-150)
[2019-05-31 10:21] LABS: THYROID STIMULATING HORMONE 1.783 uIU/mL (0.358-3.74)
--- NOTE | 2019-05-31 11:52 | NUR ---
BRENT conducted a substance abuse intervention with the pt due to his history with alcohol and drug abuse.
[2019-05-31] MEDS: LITHIUM CARBONATE (300 MG CAP) 300 MG CAPSULE PO SCH ×2 (12:49→21:41)
[2019-05-31] MEDS: BUPROPION XL 150 MG TAB.ER.24 PO SCH (12:49)
--- NOTE | 2019-05-31 14:44 | NUR ---
Pt did not give permission to disclose information to the individuals listed on his face sheet. Due to [facility] guidelines, the pt is not gravely disabled and the SW will abide by the request.
--- NOTE | 2019-05-31 15:00 | NUR ---
GROUP NOTE: SW encourage pt to participate in group therapy on this present day discussing the topic of "support systems." Pt stated that he did not want to participate as this topic made him sad, stating, "my girlfriend was my only support system ands now shes ." Pt reported that his mother and brother were not a good support system and stated that he refused for anyone to contact them stating, "I don't want them involved in my life." Pt reported that he does not have any other support system.
--- NOTE | 2019-05-31 15:51 | NUR ---
Initial Discharge Plan: Pt currently resides at [address] [place] [address]; ([phone]). Per pt, he wants to be at a halfway facility. SW will work with the pt and the MD regarding appropriate discharge planning. SW will form a safe and proper discharge.
[2019-05-31 16:00] VITALS: BP 138/86
[2019-05-31] MEDS ORDERED: LIDOCAINE 5% (PATCH) 1 EA PATCH TP SCH (18:00)
--- NOTE | 2019-05-31 18:09 | NUR ---
RN NOTE: PATIENT IS REQUESTING LIDOCAINE PATCH AT 2100. DOSE TIME CHANGED PER REQUEST.
--- NOTE | 2019-05-31 20:00 | NUR ---
GPS RN notes Pt refused to have vital signs check. Pt states "I'm fine". Educate Pt about important to have vital signs check regularly. Pt verbalize understanding. Pt keep refusing. Informed and notify Charge nurse ZAKIYA Abraham. Will continue to monitor Q 15 mins check.
[2019-05-31] MEDS: LIDOCAINE 5% (PATCH) 1 EA PATCH TP SCH (21:42)
--- NOTE | 2019-05-31 21:52 | NUR ---
GPS RN notes Pt is feeling anxious. Administered Ativan 0.5 mg/2 tabs/PO as ordered per Pt request. Instructed to call. Will continue to monitor Q 15 mins check.
[2019-05-31 22:00] VITALS: BP 122/83
--- NOTE | 2019-05-31 22:56 | NUR ---
GPS RN notes Administered Maalox Susp 30 ml/1 unit dose cup/PO as ordered for indigestion per Pt request.
[2019-06-01 08:00] VITALS: BP 117/65
[2019-06-01] MEDS: LITHIUM CARBONATE (300 MG CAP) 300 MG CAPSULE PO SCH ×2 (08:39→21:11)
[2019-06-01] MEDS: BUPROPION XL 150 MG TAB.ER.24 PO SCH (08:39)
[2019-06-01] MEDS: LORAZEPAM 0.5 MG TABLET PO PRN ×2 (08:55→21:12)
--- NOTE | 2019-06-01 09:00 | NUR ---
GPS/RN-NOTES PATIENT REQUESTING ATIVAN. STATED" I NEED MY ATIVAN FOR MY ANXIETY". ATIVAN 1MG P.O GIVEN PRN ORDER. WILL CONT. MONITORING FOR SAFETY AND BEHAVIOR.
--- NOTE | 2019-06-01 10:00 | NUR ---
GPS/RN-NOTES PATIENT SLEEPING IN BED WITH BREATHING EVEN AND NONLABORED EASILY AROUSE.
[2019-06-01 16:00] VITALS: BP 130/89
[2019-06-01 20:55] VITALS: BP 128/79
[2019-06-01] MEDS: LIDOCAINE 5% (PATCH) 1 EA PATCH TP SCH (21:12)
[2019-06-02 08:00] VITALS: BP 150/83
[2019-06-02] MEDS: LORAZEPAM 0.5 MG TABLET PO PRN (09:36)
[2019-06-02] MEDS: LITHIUM CARBONATE (300 MG CAP) 300 MG CAPSULE PO SCH ×2 (09:36→21:00)
[2019-06-02] MEDS: BUPROPION XL 150 MG TAB.ER.24 PO SCH (09:36)
--- NOTE | 2019-06-02 09:40 | NUR ---
GPS RN NOTE PATIENT STATES " I AM ANXIOUS AND NEED MY ATIVAN FOR ANXIETY". ATIVAN PRN 1MG GIVEN. WILL CONTINUE TO MONITOR FREQUENTLY [id number].
[2019-06-02 16:00] VITALS: BP 129/75
--- NOTE | 2019-06-02 19:30 | NUR ---
GPS RN NOTE, RECEIVED PATIENT AWAKE AND IN JULIANA CHAIR, NO S/S OR COMPLAINTS OF PAIN AT THIS TIME. PATIENT IS DISPLAYING NO S/S OF APPARENT DISTRESS AT THIS TIME. PATIENT BREATHING IS UNLABORED WITH EQUAL RISE AND FALL OF THE CHEST. PATIENT IS ALERT AND ORIENTED X 3 ON ROOM AIR WITH A SPO2 99 %. PATIENT IS COMPLIANT WITH MEDICATION, DISORGANIZED, CALM, COOPERATIVE. PATIENT DENIES SUICIDE IDEATIONS AND HOMICIDAL IDEATIONS AT THIS TIME. PATIENT ASSISTED WITH TURNING AND REPOSITIONING Q2 HR AND PRN FOR COMFORT AND CIRCULATION. PATIENT HAS NO NEEDS AT THIS TIME. PATIENT EDUCATED ON THE USE OF THE CALL SAHU. PATIENT BED SIDE RAILS UP X 2 FOR SAFETY, BED IS LOCKED AND LOW. WILL CONTINUE TO MONITOR Q15 MIN WITH THE HELP OF STAFF TO MAINTAIN SAFETY.
--- NOTE | 2019-06-02 20:00 | NUR ---
GPS RN NOTE, PATIENT REFUSED TO HAVE SKIN EXAM AND PHOTOGRAPHS TAKEN TODAY. OFFERED TO TAKE PHOTOS THREE TIMES AND STILL PATIENT REFUSED STATING, " NO I DON'T WANT ANY PHOTOS TAKEN TONIGHT ". EDUCATED PATIENT ON HOSPITAL POLICY FOR SKIN EXAMS AND PHOTOS. WILL CONTINUE TO MONITOR THIS PATIENT.
[2019-06-02] MEDS: LIDOCAINE 5% (PATCH) 1 EA PATCH TP SCH (21:00)
--- NOTE | 2019-06-02 21:00 | NUR ---
GPS RN NOTE, PATIENT REFUSED LITHIUM CARBONATE 300 MG 1 CAP PO Q12HR PRN AND A LIDODERM PATCH 5 % 1 PATCH TD Q24 HR. OFFERED BOTH MEDICATIONS THREE TIMES AND STILL PATIENT REFUSED STATING, " I DON'T WANT A PATCH OR MEDICATION TONIGHT ". EDUCATED PATIENT ON RISKS AND BENEFITS OF TAKING AND REFUSING AFOREMENTIONED MEDICATIONS. WILL CONTINUE TO MONITOR THIS PATIENT.
[2019-06-02 21:25] VITALS: BP 103/65
[2019-06-02 21:27] VITALS: BP 136/85
[2019-06-03 08:00] VITALS: BP 119/80
--- NOTE | 2019-06-03 09:42 | NUR ---
BRENT faxed a referral to [facility] with attention to Danyell to the fax number: [phone].
[2019-06-03] MEDS: LITHIUM CARBONATE (300 MG CAP) 300 MG CAPSULE PO SCH ×2 (09:47→20:25)
[2019-06-03] MEDS: BUPROPION XL 150 MG TAB.ER.24 PO SCH (09:47)
--- NOTE | 2019-06-03 12:51 | NUR ---
Wayne ([phone]) from [facility] called the SW and stated that he may have a bed available for the pt and to call back when there is a discharge date.
--- NOTE | 2019-06-03 15:30 | NUR ---
GROUP NOTE: SW encourage pt to participate in group therapy on this present day discussing the topic of "reality-testing." Pt stated that he liked being in the hospital and that he felt safer here than being out in the streets. SW addressed his discharge plan and pt stated, "Well you can send me to a SNF, I like being in those also."
[2019-06-03 16:00] VITALS: BP 124/83
[2019-06-03 20:24] VITALS: BP 140/90
[2019-06-03] MEDS: LIDOCAINE 5% (PATCH) 1 EA PATCH TP SCH (20:25)
[2019-06-03] MEDS: LORAZEPAM 0.5 MG TABLET PO PRN (21:32)
--- NOTE | 2019-06-04 07:21 | NUR ---
RN NOTES : PT. REFUSED AM LABS ENCOURAGED X3 EXPLAINED RISKS AND BENEFITS STILL REFUESD , ENDORSE TO DAY NURSE FOR CONTINUITY OF CARE .
[2019-06-04 08:00] VITALS: BP 147/90
[2019-06-04] MEDS: BUPROPION XL 150 MG TAB.ER.24 PO SCH (09:37)
[2019-06-04] MEDS: LITHIUM CARBONATE (300 MG CAP) 300 MG CAPSULE PO SCH (09:37)
[2019-06-04] MEDS: LORAZEPAM 0.5 MG TABLET PO PRN (09:59)
--- NOTE | 2019-06-04 09:59 | NUR ---
given ativan for agitation.
--- NOTE | 2019-06-04 11:54 | NUR ---
BRENT called Wayne ([phone]) from [facility] and informed him that the pt is going to be discharged today and that a bed is needed. He stated that he would like the pt to be discharged around 5pm and that he will be in room 19B.
--- NOTE | 2019-06-04 11:59 | NUR ---
BRENT faxed updated notes to [facility] with attention to Wayne to the fax number: [phone].
--- NOTE | 2019-06-04 15:30 | NUR ---
Group Note: SW encouraged the pt to participate in group therapy on 06/04/19 at 2pm discussing the topic of discharge planning. Pt stated that he did not need to attend group therapy because he was being discharged in a few hours to a intermediate facility and he would rather get his belongings in order.
--- NOTE | 2019-06-04 15:36 | NUR ---
REFUSES DC PHOTOS.
--- NOTE | 2019-06-04 15:57 | NUR ---
Discharge Note: Pt was discharged to [facility] ([facility]) located at [address] [place] [address]; ([phone]). Pt was transported via [facility] at 4PM. Rm 19B. Pt does not have family to contact with permission. Upon discharge, the pt appeared to be in a euthymic mood and presented with a calm affect. Pt denied suicidal and homicidal ideation as well as auditory and visual hallucinations. Pt will be under the care of his psychiatrist, Dr. Vaughn, located at [address], [place] [address]; and his paper bundler, Dr. Sosa, located at [address] [facility] [facility] [address], [place] [address]; . Pt will continue to address his substance use with the treatment team.
[2019-06-04 16:00] VITALS: BP 108/80
== END 2019-06-04 16:00 | DRG 885 ==
LOC: ER 12:28 → GPS 16:34
PROVIDERS: ADMIT Psychiatry & Neurology Psychiatry; ATTEND Nurse Practitioner Acute Care
DX: F31.30 Bipolar disorder, current episode depressed, mild or moderate severity, unspecified (principal); N17.0 Acute kidney failure with tubular necrosis; R45.851 Suicidal ideations; F41.9 Anxiety disorder, unspecified; F10.10 Alcohol abuse, uncomplicated; F15.10 Other stimulant abuse, uncomplicated; E86.9 Volume depletion, unspecified; I10 Essential (primary) hypertension; G89.29 Other chronic pain; M54.5 Low back pain; E66.9 Obesity, unspecified; Z68.34 Body mass index [BMI] 34.0-34.9, adult; E78.5 Hyperlipidemia, unspecified
CPT/HCPCS: 36415; 80048-TC; 80053-TC; 80061-TC; 80076-TC; 80305; 81000-TC; 82962-TC; 84439-TC; 84443-TC; 84481; 85025-TC; 87081-TC; G0480

== ENCOUNTER 2019-07-05 17:06 | Inpatient (IN) | payer MEDICARE, MEDICAID ==
[~2019-07-05] VITALS: Ht 180.3 cm; Wt 113.4 kg
[~2019-07-05 17:06] MED LIST changes: -ASPI-605 PO; -ATOR40TA PO; +BUPR150T5 PO; +DIVA-78 PO; +LORA1TAB PO; +TEMA15CA5 PO
--- NOTE | 2019-07-05 17:24 | NUR ---
SECURITY CALLED FOR ASSISTANCE AND WANDING.
[2019-07-05 19:22] LABS: BASOPHILS # (AUTO) 0.1 /CMM (0.0-0.2); HEMATOCRIT 41 % (39-51); HEMOGLOBIN 13.4 g/dL (13.5-17.5); LYMPHOCYTES # (AUTO) 1.6 /CMM (0.8-4.8); LYMPHOCYTES % (AUTO) 24.2 % (20.0-44.0); MEAN CORPUSCULAR HGB CONC 33 g/dl (31.0-36.0); MEAN CORPUSCULAR VOLUME 87 fL (80-96); MONOCYTES # (AUTO) 0.7 /CMM (0.1-1.30); MONOCYTES % (AUTO) 11.4 % (2.0-12.0); NEUTROPHILS % (AUTO) 61.4 % (43.0-81.0); PLATELET COUNT (AUTO) 195 /CMM (150-450); RED BLOOD CELL COUNT(AUTO) 4.69 MIL/uL (4.5-6.0); WHITE BLOOD COUNT (AUTO) 6.5 K/uL (4.3-11.0)
[2019-07-05 19:31] LABS: CALCIUM, SERUM 9.3 mg/dL (8.5-10.1); CREATININE 1.3 mg/dL (0.6-1.3); POTASSIUM 3.8 mmol/L (3.5-5.1)
[2019-07-05 19:36] LABS: ALBUMIN 3.4 g/dL (3.4-5.0); BILIRUBIN,DIRECT 0.1 mg/dL (0.0-0.2); BILIRUBIN,TOTAL 0.2 mg/dL (0.2-1.0); TOTAL PROTEIN, SERUM 7.4 g/dL (6.4-8.2)
[2019-07-05 19:38] LABS: SALICYLATE 2.2 mg/dL (2.8-20.0)
--- NOTE | 2019-07-05 20:13 | NUR ---
DEPRESSION, SI +PLAN TO "OD ON MEDS" PT ASLEEP AT THIS TIME. PT APPEARS COMFORTABLE. PT PLACED ON SAFETY PRECAUTION.
--- NOTE | 2019-07-05 20:31 | NUR ---
CALLED DEBT COLLECTION SPECIALIST [employer] REPAIRER AND LEFT A MESSAGE
--- NOTE | 2019-07-05 23:20 | NUR ---
PT AMBULATORY TO RESTROOM WITH STEADY GAIT. URINE COLLECTED AND SENT TO LAB
[2019-07-05 23:34] LABS: APPEARANCE,URINE Clear (CLEAR); BILIRUBIN,URINE SMALL (NEGATIVE); BLOOD, URINE Negative Ery/uL (NEGATIVE); COLOR,URINE Yellow (YELLOW); KETONES,URINE Trace (NEGATIVE); LEUKOCYTE ESTERASE ,URINE Negative (NEGATIVE); NITRITE, URINE Negative (NEGATIVE); PH,URINE 5.5 (5.0-8.0); PROTEIN,URINE 30 mg/dl (NEGATIVE); UGLUCOSE Negative (NEGATIVE); UROBILINOGEN,URINE 0.2 EU/dL (0.2)
[2019-07-06 00:10] LABS: RBC,URINE 0-2 /HPF (0-2)
[2019-07-06 00:11] LABS: BACTERIA,URINE Few /HPF (None Seen); MUCUS,URINE Many /LPF (None Seen); SQUAMOUS EPITHELIAL CELL,UR Few /HPF (None Seen)
--- NOTE | 2019-07-06 01:31 | NUR ---
PT ASSIGNED TO 213-A
--- NOTE | 2019-07-06 01:45 | NUR ---
GAVE REPORT TO CHRISTIAN SIGALA FOR BETO
--- NOTE | 2019-07-06 02:06 | NUR ---
PT TRANSFERRED TO GPS VIA WHEELCHAIR
--- NOTE | 2019-07-06 02:20 | NUR ---
Admitted a 59 y/o male from home and evaluated at [facility]. On voluntary status and patient that he is depressed and has SI with plan to overdose on pills. He is depressed because its the 2nd year anniversary of his GF. Patient admitting Dx. depression. Medical dx. hyperlipidemia, hx of hypertension. Patient has allergy to abilify. Upon face to face evaluation, patient appeared alert and oriented x 3-4, depressed mood, calm, cooperative. Patient stated that he has on and off visual and auditory hallucinations. Explained the paper works by the previous shift and patient signed the consents. Belongings and contraband checked by the previous shift. Q15 min checks started. Care plan started. Vital signs checked and recorded. Patient's rights discussed, guide to prescription meds handbook provided. Patient refused body check, patient refused and stated "i dont have any skin issues". Patient signed non disclosure of information. Notified Dr. Gordon of the admission. Will monitor patient for mood, safety and behavior. Will endorse to the day shift.
[2019-07-06] MEDS ORDERED: ACETAMINOPHEN 325 MG TABLET PO PRN (02:30)
[2019-07-06] MEDS ORDERED: BLOOD SUGAR DIAGNOSTIC 1 EACH STRIP IN ONE (02:30)
[2019-07-06] MEDS ORDERED: MAG HYDROX/AL HYDROX/SIMETH 30 ML UDC PO PRN (02:30)
[2019-07-06] MEDS ORDERED: MAGNESIUM HYDROXIDE 30 ML UDC PO PRN (02:30)
[2019-07-06 03:13] VITALS: BP 148/88
[2019-07-06] MEDS ORDERED: ATOR10TA PO (03:47)
[2019-07-06 08:00] VITALS: BP 117/73
[2019-07-06] MEDS: LORAZEPAM 0.5 MG TABLET PO PRN (08:22)
--- NOTE | 2019-07-06 08:24 | NUR ---
RN NOTE: PATIENT C/O FEELING ANXIOUS. ADMINISTERED PRN ATIVAN.
[2019-07-06] MEDS: NICOTINE PATCH (21MG) 21 MG PATCH.TD24 TD SCH (09:00)
[2019-07-06 16:00] VITALS: BP 123/73
--- NOTE | 2019-07-06 20:00 | NUR ---
GPS RN NOTE RECEIVED PATIENT IN BED, SLEEPING AT THIS TIME. A/O X3. TOLERATING ROOM AIR. RESPIRATIONS ARE EVEN AND UNLABORED. NO S/S SOB. DENIES PAIN AT THIS TIME. NO APPARENT DISTRESS NOTED. PATIENT DENIES SI/HI AT THIS TIME. PATIENT HAS NO NEEDS AT THIS TIME.PATIENT IS CALM, COOPERATIVE, AT TIMES UNCOOPERATIVE, REFUSED VS AT 2000, DEPRESSED, ISOLATIVE, CHOSE WHICH MEDICATIONS HE WILL TAKE, AND RESPONDS WHEN ENGAGED. PATIENT IS EDUCATED ON THE USE OF THE CALL SAHU. BED IS LOW AND LOCKED, SIDE RIALS UP X2. ENVIRONMENTAL CHECKS COMPLETED, NO CONTRABAND FOUND. ID BAND ON. WILL CONTINUE TO MONITOR [id number] TO ASSESS FOR SAFETY AND BEHAVIOR.
[2019-07-06] MEDS: risperiDONE 1 MG TABLET PO SCH (20:30)
[2019-07-06] MEDS: DIVALPROEX SODIUM 500 MG TABLET.DR PO SCH (21:53)
[2019-07-06] MEDS: TEMAZEPAM 7.5 MG CAPSULE PO PRN (22:12)
--- NOTE | 2019-07-06 22:20 | NUR ---
GPS RN NOTE REMOVED RISPERDAL 1MG FROM [facility] CELL. TOOK OUT OF PACKAGING ABOUT TO GIVE TO PATIENT. PATIENT REFUSED LAST MIN D/T INFORMING HIM HE WILL NEED TO WAIT 1 HOUR BEFORE RECEIVING RESTORIL PT REFUSED D/T WANTING RESTORIL OVER RISPERDAL. PLACED WASTE MEDICATION IN THE PHARMACEUTICAL WASTE BIN IN NURSES STATION.
[2019-07-07 07:20] LABS: BILIRUBIN,TOTAL 0.2 mg/dL (0.2-1.0); CALCIUM, SERUM 8.9 mg/dL (8.5-10.1); CREATININE 1.1 mg/dL (0.6-1.3); POTASSIUM 4.8 mmol/L (3.5-5.1)
[2019-07-07 07:22] LABS: CHOLESTEROL 211 mg/dL (<200); HDL CHOLESTEROL 46 mg/dL (40-60); LDL 135 mg/dL (0-99); TRIGLYCERIDES 114 mg/dL (30-150)
[2019-07-07 08:00] VITALS: BP 123/73
[2019-07-07] MEDS: buPROPion SR 150 MG TABLET.ER PO SCH ×2 (08:44→17:36)
[2019-07-07] MEDS: DIVALPROEX SODIUM 500 MG TABLET.DR PO SCH ×2 (08:44→20:10)
[2019-07-07] MEDS: risperiDONE 1 MG TABLET PO SCH ×2 (08:44→20:10)
[2019-07-07] MEDS: NICOTINE PATCH (21MG) 21 MG PATCH.TD24 TD SCH (08:45)
[2019-07-07] MEDS ORDERED: ARIPIPRAZOLE 5 MG TABLET PO SCH (09:00)
[2019-07-07 16:01] VITALS: BP 131/76
[2019-07-07 19:52] VITALS: BP 100/56
[2019-07-08 08:00] VITALS: BP 125/74
[2019-07-08] MEDS: risperiDONE 1 MG TABLET PO SCH ×2 (08:17→21:27)
[2019-07-08] MEDS: DIVALPROEX SODIUM 500 MG TABLET.DR PO SCH ×2 (08:17→21:27)
[2019-07-08] MEDS: buPROPion SR 150 MG TABLET.ER PO SCH ×2 (08:17→17:47)
[2019-07-08] MEDS: LORAZEPAM 0.5 MG TABLET PO PRN (08:22)
--- NOTE | 2019-07-08 08:22 | NUR ---
RN NOTES ADMINISTERED ATIVAN 1 MG PO PRN FOR ANXIETY PER PATIENT REQUEST, V/S TAKEN BP-125/74, P-60, CONTINUED MONITORING.
[2019-07-08] MEDS: NICOTINE PATCH (21MG) 21 MG PATCH.TD24 TD SCH (08:27)
--- NOTE | 2019-07-08 09:15 | NUR ---
Individual Intervention: SW spoke to the pt regarding his discharge plan and he stated that he left [facility] after a few days because he did not have a skilled need. Pt stated that he may want a board and care placement.
--- NOTE | 2019-07-08 15:13 | NUR ---
Substance Use Intervention: BRENT conducted a substance abuse intervention with the pt due to his cannabis, cocaine, amphetamine and alcohol use.
--- NOTE | 2019-07-08 15:38 | NUR ---
GROUP NOTE: SW encouraged pt to participate in group on this present day discussing "discharge planning." Pt was int he shower at the time of the group and was unable to attend.
[2019-07-08 16:00] VITALS: BP 141/88
[2019-07-08 20:29] VITALS: BP 136/70
[2019-07-09 08:00] VITALS: BP 130/77
[2019-07-09] MEDS: buPROPion SR 150 MG TABLET.ER PO SCH ×2 (08:11→16:08)
[2019-07-09] MEDS: DIVALPROEX SODIUM 500 MG TABLET.DR PO SCH ×2 (08:11→21:13)
[2019-07-09] MEDS: risperiDONE 1 MG TABLET PO SCH ×2 (08:11→21:14)
[2019-07-09] MEDS: NICOTINE PATCH (21MG) 21 MG PATCH.TD24 TD SCH (08:15)
--- NOTE | 2019-07-09 10:35 | NUR ---
Individual Intervention: SW spoke to the pt with his MD, Dr. Narvaez, regarding his discharge planning. Pt stated that he wanted to be released on and that he had a to attend on Monday. Pt stated that he wanted a board and care but the pt stated that he would not receive his next check until the . Pt stated that he does not want to stay in the hospital until then and therefore he would find his own placement out on the streets. Pt requested a list of sober livings from the and the SW stated that she would provide that list as soon as she can.
--- NOTE | 2019-07-09 13:21 | NUR ---
Initial Discharge Plan: Pt currently resides with his brother at a home located at [address] [place], [place] [id number]; [phone]. Per pt, he would like to be discharged on and is requested referrals. SW will work with the pt and the MD regarding appropriate discharge planning. SW will form a safe and proper discharge.
[2019-07-09] MEDS: LORAZEPAM 0.5 MG TABLET PO PRN ×2 (15:18→21:12)
--- NOTE | 2019-07-09 15:35 | NUR ---
GROUP NOTE: SW encouraged pt to participate in group on this present day discussing "positive coping skills." Pt was on the phone ans stated that he could not partupca in group
[2019-07-09 16:00] VITALS: BP 152/99
[2019-07-09 20:26] VITALS: BP 128/54
[2019-07-09] MEDS: TEMAZEPAM 7.5 MG CAPSULE PO PRN (21:13)
[2019-07-10 08:00] VITALS: BP 148/91
[2019-07-10] MEDS: risperiDONE 1 MG TABLET PO SCH ×2 (08:57→20:30)
[2019-07-10] MEDS: DIVALPROEX SODIUM 500 MG TABLET.DR PO SCH ×2 (08:57→21:16)
[2019-07-10] MEDS: buPROPion SR 150 MG TABLET.ER PO SCH ×2 (08:57→16:44)
[2019-07-10] MEDS: NICOTINE PATCH (21MG) 21 MG PATCH.TD24 TD SCH (09:00)
[2019-07-10] MEDS: LORAZEPAM 0.5 MG TABLET PO PRN ×2 (09:01→16:44)
--- NOTE | 2019-07-10 09:01 | NUR ---
RN NOTE: PATIENT COMPLAINING OF ANXIETY. PRN ATIVAN GIVEN.
--- NOTE | 2019-07-10 15:55 | NUR ---
Group Note: SW encouraged pt to participate in group on 07/10/19 at 2pm discussing "discharge planning." Pt was int he shower at the time of the group and was unable to attend.
[2019-07-10 16:00] VITALS: BP 155/98
--- NOTE | 2019-07-10 16:45 | NUR ---
RN NOTE: PATIENT IS COMPLAINING OF ANXIETY AND A HEADACHE. PRN ATIVAN + TYLENOL GIVEN.
--- NOTE | 2019-07-10 19:01 | NUR ---
RN NOTE: PATIENT COMPLAINING OF HEARTBURN. PRN MAALOX GIVEN.
[2019-07-10 20:20] VITALS: BP 163/82
[2019-07-10] MEDS: TEMAZEPAM 7.5 MG CAPSULE PO PRN (21:17)
--- NOTE | 2019-07-10 22:12 | NUR ---
GPS RN NOTE: PATIENT REFUSED RISPERDAL, EXPLAINED THE RISK AND BENEFITS, PATIENT STILL REFUSED, PATIENT STATED THAT HE FEELS UNUSUAL SINCE HE STARTED TAKING THIS MEDICATION. WILL CONTINUE TO MONITOR Q15 MINS FOR SAFETY
[2019-07-11 08:00] VITALS: BP 118/75
[2019-07-11] MEDS: NICOTINE PATCH (21MG) 21 MG PATCH.TD24 TD SCH (09:00)
[2019-07-11] MEDS: LORAZEPAM 0.5 MG TABLET PO PRN (09:02)
[2019-07-11] MEDS: risperiDONE 1 MG TABLET PO SCH ×2 (09:02→20:16)
[2019-07-11] MEDS: buPROPion SR 150 MG TABLET.ER PO SCH ×2 (09:02→16:36)
[2019-07-11] MEDS: DIVALPROEX SODIUM 500 MG TABLET.DR PO SCH ×2 (09:02→20:16)
--- NOTE | 2019-07-11 09:02 | NUR ---
RN NOTE: PATIENT C/O ANXIETY. PRN ATIVAN GIVEN.
--- NOTE | 2019-07-11 15:50 | NUR ---
Group Note: SW encouraged pt to participate in group on 07/11/19 at 2pm discussing social support. Pt stated that he does not gain anything from group therapy and wanted to continue sleeping. Pt stated that his discharge is approaching and that is all that he cares about.
[2019-07-11 16:00] VITALS: BP 138/90
[2019-07-11 20:16] VITALS: BP 140/83
[2019-07-11] MEDS: TEMAZEPAM 7.5 MG CAPSULE PO PRN (20:16)
[2019-07-12 08:00] VITALS: BP 136/80
[2019-07-12] MEDS: NICOTINE PATCH (21MG) 21 MG PATCH.TD24 TD SCH (09:00)
[2019-07-12] MEDS: risperiDONE 1 MG TABLET PO SCH ×2 (09:49→21:30)
[2019-07-12] MEDS: buPROPion SR 150 MG TABLET.ER PO SCH ×2 (09:49→17:00)
[2019-07-12] MEDS: DIVALPROEX SODIUM 500 MG TABLET.DR PO SCH ×2 (09:49→21:30)
--- NOTE | 2019-07-12 15:29 | NUR ---
Group Note: SW encouraged pt to participate in group on 07/12/19 at 2pm discussing substance abuse. Pt stated that he does not gain anything from group therapy and wanted to continue sleeping. Pt stated that his discharge is approaching and that is all that he cares about and that he already has a plan to assist with his substance use.
[2019-07-12 16:00] VITALS: BP 128/76
[2019-07-12] MEDS: LORAZEPAM 0.5 MG TABLET PO PRN (18:52)
[2019-07-12 20:28] VITALS: BP 123/72
[2019-07-13 08:00] VITALS: BP 131/85
[2019-07-13] MEDS: buPROPion SR 150 MG TABLET.ER PO SCH (08:05)
[2019-07-13] MEDS: NICOTINE PATCH (21MG) 21 MG PATCH.TD24 TD SCH (08:05)
[2019-07-13] MEDS: DIVALPROEX SODIUM 500 MG TABLET.DR PO SCH (08:06)
[2019-07-13] MEDS: risperiDONE 1 MG TABLET PO SCH (08:06)
--- NOTE | 2019-07-13 09:20 | NUR ---
GPS/RN PT DISCHARGED HOME VIA TAXI WITH VOUCHER PROVIDED. NO SI OR HI AT THE TIME OF D/C. PT IS AMBULATORY SELFCARE, VSS. PROPERTY RETURNED.PRESCRIPTIONS PROVIDED.
--- NOTE | 2019-07-15 08:55 | NUR ---
Discharge Note: Pt was discharged to his brothers home located at [address] [place], [place] at 9:30AM. Pt was discharged via a taxi. Upon discharge, the pt denied both suicidal and homicidal ideation as well as auditory and visual hallucinations to his nurse. Pt was provided with substance abuse and smoking cessation referrals prior to discharge and are listed below. Pt was referred to under the care of [facility] Department of Mental Health for psychiatric services located at [address] [place] [address]; ; and a fax of records was sent to: . Pt has an appointment on 07/17/19 at 1pm. Pt was also referred to [facility] located at [address], [place]; for health services. Substance Abuse Referrals: [facility] [address] [place] [address] Tel. [facility] Provider Mental Health Treatment Tele-dermatology HIV Services Telemedicine Services [facility] [address] [place] [address] [facility] [address] [place] [address] Smoking Cessation: [employer] 800-LUNGUSA [employer] [phone] Pt was referred to a Nicotine Anonymous meeting on [address] [facility] [address] on Tuesday July 16, 2019 at 7:00 PM Addendum: 07/15/19 at 0900 by ALICIA KENNEDY Pt was discharged on 07/13/19.
--- NOTE | 2019-07-29 09:32 | NUR ---
Substance Abuse Follow Up: SW called the pt ([phone]) and he stated that he has been doing well and that the SW did not need to know if he has used any substances since his discharge.
== END 2019-07-13 09:20 | disposition home or self-care (01) | DRG 885 ==
LOC: ER 17:06 → GPS 07-06 01:37
PROVIDERS: ADMIT Psychiatry & Neurology Psychiatry; ATTEND Nurse Practitioner Acute Care
DX: F31.5 Bipolar disorder, current episode depressed, severe, with psychotic features (principal); F15.10 Other stimulant abuse, uncomplicated; E78.5 Hyperlipidemia, unspecified; E66.9 Obesity, unspecified; I10 Essential (primary) hypertension; F41.9 Anxiety disorder, unspecified; G89.29 Other chronic pain
CPT/HCPCS: 36415; 80048-TC; 80053-TC; 80061-TC; 80076-TC; 80164-TC; 80305; 81000-TC; 85025-TC; 87081-TC; G0480

== ENCOUNTER 2019-08-01 00:12 | Inpatient (IN) | payer MEDICARE, MEDICAID ==
[~2019-08-01] VITALS: Ht 180.3 cm; Wt 113.4 kg
[~2019-08-01 00:12] MED LIST changes: +ATOR10TA PO
--- NOTE | 2019-08-01 00:51 | NUR ---
CALLED PATIENT IN WAITING ROOM. NO RESPONSE.
--- NOTE | 2019-08-01 02:22 | NUR ---
PT BIBSELF C/C DEPRESSION AND +SI X4 DAYS SINCE "SUFFERED LOSSES RECENTLY", PLAN TO OVERDOSE, -HI, -AUDITORY HALLUCINATIONS. NAD NOTED. RESP EVEN AND UNLABORED. PT DENIES PAIN AT THIS TIME. PT BELONGINGS PLACED IN LABELED BAGS AND STORED AWAY FROM PT. PT ON MONITOR IN BED 14 WITH SITTER AT BEDSIDE. WILL CONTINUE TO MONITOR.
--- NOTE | 2019-08-01 02:32 | NUR ---
UNABLE TO PROVIDE URINE AT THIS TIME
--- NOTE | 2019-08-01 02:38 | NUR ---
SECURITY AT BEDSIDE TO WAND FOR PATIENT SAFETY
[2019-08-01] MEDS ORDERED: OLANZAPINE 5 MG TABLET PO ONE (03:00)
[2019-08-01 03:18] LABS: BASOPHILS % (AUTO) 0.5 % (0.0-2.0); EOSINOPHILS % (AUTO) 0.6 % (0.0-6.0); HEMATOCRIT 41 % (39-51); HEMOGLOBIN 13.7 g/dL (13.5-17.5); LYMPHOCYTES # (AUTO) 1.7 /CMM (0.8-4.8); LYMPHOCYTES % (AUTO) 23.3 % (20.0-44.0); MEAN CORPUSCULAR HGB CONC 33 g/dl (31.0-36.0); MEAN CORPUSCULAR VOLUME 86 fL (80-96); MONOCYTES # (AUTO) 0.6 /CMM (0.1-1.30); NEUTROPHILS # (AUTO) 5.1 /CMM (1.8-8.9); NEUTROPHILS % (AUTO) 67.6 % (43.0-81.0); PLATELET COUNT (AUTO) 199 /CMM (150-450); RED BLOOD CELL COUNT(AUTO) 4.81 MIL/uL (4.5-6.0); WHITE BLOOD COUNT (AUTO) 7.5 K/uL (4.3-11.0)
[2019-08-01 03:33] LABS: ALBUMIN 3.5 g/dL (3.4-5.0); BILIRUBIN,DIRECT 0.1 mg/dL (0.0-0.2); BILIRUBIN,TOTAL 0.2 mg/dL (0.2-1.0); CALCIUM, SERUM 8.8 mg/dL (8.5-10.1); CREATININE 1.3 mg/dL (0.6-1.3); POTASSIUM 3.7 mmol/L (3.5-5.1); TOTAL PROTEIN, SERUM 7.6 g/dL (6.4-8.2)
[2019-08-01 03:38] LABS: SALICYLATE 2.6 mg/dL (2.8-20.0)
[2019-08-01] MEDS ORDERED: OLANZAPINE 5 MG TABLET ONE (03:39)
--- NOTE | 2019-08-01 04:27 | NUR ---
urine sent to lab
[2019-08-01 04:53] LABS: APPEARANCE,URINE Clear (CLEAR); BILIRUBIN,URINE Negative (NEGATIVE); BLOOD, URINE Negative Ery/uL (NEGATIVE); COLOR,URINE Yellow (YELLOW); KETONES,URINE Negative (NEGATIVE); LEUKOCYTE ESTERASE ,URINE Negative (NEGATIVE); NITRITE, URINE Negative (NEGATIVE); PH,URINE 5.5 (5.0-8.0); PROTEIN,URINE Negative (NEGATIVE); UGLUCOSE Negative (NEGATIVE); UROBILINOGEN,URINE 0.2 EU/dL (0.2)
--- NOTE | 2019-08-01 05:56 | NUR ---
Art at bedside for eval.
--- NOTE | 2019-08-01 07:38 | NUR ---
REPORT GIVEN TO LIZZIE SIGALA FOR CONTINUATION OF CARE.
--- NOTE | 2019-08-01 10:15 | NUR ---
GPS/RN RECEIVED PT FROM ER ON 5149 FOR SI. PT IS AMBULATORY,VSS, NO ACUTE DISTRESS. DEPRESSED. ON FACE TO FACE ASSESSMENT NO SI OR HI REPORTED. ADMITTING ORDERS FROM DR MESSER RECEIVED AND CARRIED OUT. RALPH NOLAND MADE AWARE OF ADMISSION. PT CHECKED FOR CONTRABAND. VALUABLES PLACED IN THE SAFE.
[2019-08-01] MEDS ORDERED: MAG HYDROX/AL HYDROX/SIMETH 30 ML UDC PO PRN (10:30)
[2019-08-01] MEDS ORDERED: ACETAMINOPHEN 325 MG TABLET PO PRN (10:30)
[2019-08-01] MEDS ORDERED: MAGNESIUM HYDROXIDE 30 ML UDC PO PRN (10:30)
[2019-08-01] MEDS ORDERED: RISP1TAB27 PO (10:57)
[2019-08-01] MEDS ORDERED: SENN-168 PO (10:57)
[2019-08-01] MEDS ORDERED: PALI156D IM (10:57)
[2019-08-01] MEDS ORDERED: AMLO5TAB9 PO (10:57)
[2019-08-01] MEDS ORDERED: FENO160T PO (10:57)
[2019-08-01] MEDS ORDERED: OMEP20CA11 PO (10:57)
[2019-08-01] MEDS ORDERED: FENO200C PO (10:58)
[2019-08-01] MEDS ORDERED: QUET50TA PO (11:01)
[2019-08-01] MEDS ORDERED: ATOR10TA PO (11:06)
--- NOTE | 2019-08-01 15:09 | NUR ---
SS Group Note: SW invited patient to attend today's support group regarding gratefulness and holiday sensory activity at 1 pm in the activities room. Patient presented laying on her bed sleeping. SW attempted to wake patient, however, they were not easily rousable.
[2019-08-01 16:00] VITALS: BP 140/64
[2019-08-01] MEDS: buPROPion SR 100 MG TABLET.ER PO SCH (16:22)
[2019-08-01] MEDS: risperiDONE 1 MG TABLET PO SCH (16:22)
--- NOTE | 2019-08-01 18:55 | NUR ---
RN CLOSING NOTES PT IN BED, NO ACUTE DISTRESS. NO COMPLAINTS OF PAIN MADE. NO SIGNS OF ANY SUICIDE IDEATION NOTED. COMPLIANT WITH MEDS. WILL ENDORSE TO NEXT SHIFT RN IN STABLE CONDITION FOR CONTINUITY OF CARE
[2019-08-01] MEDS: DIVALPROEX SODIUM 500 MG TABLET.DR PO SCH (20:15)
[2019-08-01 22:17] VITALS: BP 107/69
[2019-08-02 07:41] LABS: CHOLESTEROL 165 mg/dL (<200); HDL CHOLESTEROL 45 mg/dL (40-60); LDL 102 mg/dL (0-99); TRIGLYCERIDES 87 mg/dL (30-150)
[2019-08-02 08:00] VITALS: BP 132/79
[2019-08-02] MEDS: risperiDONE 1 MG TABLET PO SCH ×2 (09:00→17:00)
[2019-08-02] MEDS: NICOTINE PATCH (21MG) 21 MG PATCH.TD24 TD SCH (09:00)
[2019-08-02] MEDS: buPROPion SR 100 MG TABLET.ER PO SCH ×2 (09:30→17:15)
[2019-08-02] MEDS: ATORVASTATIN 10 MG TABLET PO SCH (09:30)
[2019-08-02] MEDS: DIVALPROEX SODIUM 500 MG TABLET.DR PO SCH ×2 (09:30→21:11)
--- NOTE | 2019-08-02 15:44 | NUR ---
SS Group Note 08/02/19: SW to invite patient to attend today's support group at 1:00pm regarding Mindfulness in the activities room. Patient refused, stating, I ahve been in the activities room all morning since 6 am and I just got back in my room. I want to read". SW encouraged patient to attend and informed pt. that it would be a relaxation technique. Pt. refused and SW respected patient's self-determination.
--- NOTE | 2019-08-02 15:50 | NUR ---
Initial Discharge Plan: Pt will be discharged to [facility] located at [address], [place]. BRENT will work with the MD and the pt regarding appropriate discharge planning. SW will form a safe and proper discharge.
[2019-08-02 16:00] VITALS: BP 125/72
--- NOTE | 2019-08-02 16:13 | NUR ---
Psychosocial Attestation Note: I, Valeria Noyola MSW, attest to the patients previous psychosocial information dated on 07/09/19. Update On Events leading to Admission and Discharge Plan: Pt has returned to the hospital within a few days of his previous discharge date (07/13/19). Per hold, the pt was brought in by himself self-complaining of depression and suicidal ideation with a plan to overdose. During face to face assessment, pt appeared to be alert and oriented in all spheres. Pt was depressed with decreased sleep. Pt stated that he wants to end his life by overdosing. Pt is upset with his life in general. Upon social science manager evaluation, the pt appears to be oriented x4 (time, place, self and situation). The pt appears to be in a depressed and agitated mood and presents with a distressed affect. Pt stated that he does not understand how his life has come to this point and that he does not know what to do to help himself. Pt states that he feels anxious constantly and it has been affecting his ability to eat and sleep appropriately. Pts insight and judgment appear to be impaired and the pts impulse control is poor. Pt will be discharged either to a assisted facility, sober living or to his brothers house.
--- NOTE | 2019-08-02 17:16 | NUR ---
RN NOTE: PATIENT REFUSED 0900 AND 1700 DOSE OF RISPERDAL. PATIENT STATES "ITS MAKES MY HEAD FEEL FOGGY." RISK AND BENEFITS EXPLAINED.
[2019-08-02] MEDS: LORAZEPAM 0.5 MG TABLET PO PRN (19:51)
[2019-08-02 20:20] VITALS: BP 124/81
[2019-08-03 08:00] VITALS: BP 130/80
[2019-08-03] MEDS: DIVALPROEX SODIUM 500 MG TABLET.DR PO SCH ×2 (08:10→20:21)
[2019-08-03] MEDS: buPROPion SR 100 MG TABLET.ER PO SCH ×2 (08:10→17:00)
[2019-08-03] MEDS: ATORVASTATIN 10 MG TABLET PO SCH (08:10)
[2019-08-03] MEDS: risperiDONE 1 MG TABLET PO SCH ×2 (08:12→17:00)
[2019-08-03] MEDS: NICOTINE PATCH (21MG) 21 MG PATCH.TD24 TD SCH (08:12)
[2019-08-03 16:00] VITALS: BP 149/81
--- NOTE | 2019-08-03 17:00 | NUR ---
RN NOTE- PT REFUSE RISPERDAL. "i DON'T LIKE IT.". REFUSED 0900 DOSE WELL.
[2019-08-03] MEDS: LORAZEPAM 0.5 MG TABLET PO PRN (17:24)
--- NOTE | 2019-08-03 17:26 | NUR ---
RN NOTE- PT W AGITATION. REQUESTED ATIVAN. PRN ATIVAN GIVEN
[2019-08-03 20:00] VITALS: BP 131/83
[2019-08-04 08:00] VITALS: BP 144/91
[2019-08-04] MEDS: ATORVASTATIN 10 MG TABLET PO SCH (08:24)
[2019-08-04] MEDS: LORAZEPAM 0.5 MG TABLET PO PRN (08:24)
[2019-08-04] MEDS: risperiDONE 1 MG TABLET PO SCH ×2 (08:24→17:00)
[2019-08-04] MEDS: buPROPion SR 100 MG TABLET.ER PO SCH ×2 (08:24→17:29)
[2019-08-04] MEDS: DIVALPROEX SODIUM 500 MG TABLET.DR PO SCH ×2 (08:24→20:54)
--- NOTE | 2019-08-04 08:24 | NUR ---
RN NOTE- PT W AGITATION. PRN ATIVN GIVEN
[2019-08-04] MEDS: NICOTINE PATCH (21MG) 21 MG PATCH.TD24 TD SCH (08:27)
[2019-08-04 16:00] VITALS: BP 140/80
--- NOTE | 2019-08-04 16:46 | NUR ---
RN NOTE=- PT W DYSPEPSIA. MAALOX PRN GIVEN
[2019-08-04 20:25] VITALS: BP 145/84
[2019-08-04] MEDS: TEMAZEPAM 7.5 MG CAPSULE PO PRN (20:55)
--- NOTE | 2019-08-04 21:00 | NUR ---
PT C/O INSOMNIA. LEAST RESTRICTIVE MEASURES INEFFECTIVE. RESTORIL 15 MG PO PRN GIVEN ORDERED. WILL CONTINUE TO MONITOR.
--- NOTE | 2019-08-04 22:02 | NUR ---
Restoril effective. Post 1 hour asleep in bed easy to arouse. Will continue to monitor.
[2019-08-05 08:00] VITALS: BP 146/94
[2019-08-05] MEDS: NICOTINE PATCH (21MG) 21 MG PATCH.TD24 TD SCH (09:00)
[2019-08-05] MEDS: DIVALPROEX SODIUM 500 MG TABLET.DR PO SCH ×2 (09:40→21:11)
[2019-08-05] MEDS: ATORVASTATIN 10 MG TABLET PO SCH (09:40)
[2019-08-05] MEDS: LORAZEPAM 0.5 MG TABLET PO PRN ×2 (09:40→19:02)
[2019-08-05] MEDS: buPROPion SR 100 MG TABLET.ER PO SCH ×2 (09:40→17:50)
--- NOTE | 2019-08-05 09:41 | NUR ---
RN NOTE :MEDICATED WITH ATIVAN 1MG X1 FOR ANXIETY.WILL CONTINUE TO MONITOR.
--- NOTE | 2019-08-05 15:41 | NUR ---
GROUP NOTE: SW assessed pts ability to participate in group therapy discussing "discharge planning." Pt was on the phone and stated it was an important conversation and therefore could not attend group.
--- NOTE | 2019-08-05 15:52 | NUR ---
Substance Abuse Intervention: BRENT conducted a substance abuse intervention with the pt regarding his alcohol and cocaine use. Addendum: 08/05/19 at 1554 by ALICIA KENNEDY Cannabis use not cocaine use
[2019-08-05 16:00] VITALS: BP 133/89
--- NOTE | 2019-08-05 19:02 | NUR ---
RN NOTE :MEDICATED WITH ATIVAN 1MG X1 FOR ANXIETY.WILL CONTINUE TO MONITOR.
[2019-08-05 21:11] VITALS: BP 150/97
[2019-08-05] MEDS: TEMAZEPAM 7.5 MG CAPSULE PO PRN (21:11)
[2019-08-06 08:00] VITALS: BP 117/64
[2019-08-06] MEDS: ATORVASTATIN 10 MG TABLET PO SCH (08:55)
[2019-08-06] MEDS: DIVALPROEX SODIUM 500 MG TABLET.DR PO SCH ×2 (08:55→21:04)
[2019-08-06] MEDS: buPROPion SR 100 MG TABLET.ER PO SCH ×2 (08:55→17:57)
[2019-08-06] MEDS: LORAZEPAM 0.5 MG TABLET PO PRN ×2 (08:55→17:07)
[2019-08-06] MEDS: NICOTINE PATCH (21MG) 21 MG PATCH.TD24 TD SCH (08:55)
--- NOTE | 2019-08-06 08:56 | NUR ---
RN NOTE :MEDICATED WITH ATIVAN 1MG FOR ANXIETY.WILL CONTINUE TO MONITOR.
--- NOTE | 2019-08-06 17:07 | NUR ---
RN NOTE: PATIENT C/O FEELING ANXIOUS. ADMINISTERED PRN ATIVAN.
[2019-08-06 20:29] VITALS: BP 141/90
[2019-08-06] MEDS: TEMAZEPAM 7.5 MG CAPSULE PO PRN (21:45)
[2019-08-07] MEDS: LORAZEPAM 0.5 MG TABLET PO PRN ×2 (07:52→15:13)
[2019-08-07 08:00] VITALS: BP 130/91
[2019-08-07] MEDS: buPROPion SR 100 MG TABLET.ER PO SCH ×2 (08:20→17:44)
[2019-08-07] MEDS: ATORVASTATIN 10 MG TABLET PO SCH (08:20)
[2019-08-07] MEDS: DIVALPROEX SODIUM 500 MG TABLET.DR PO SCH ×2 (08:20→21:00)
[2019-08-07] MEDS: NICOTINE PATCH (21MG) 21 MG PATCH.TD24 TD SCH (08:20)
--- NOTE | 2019-08-07 13:01 | NUR ---
Group Note: SW encouraged the pt to attend group therapy on 08/06/19 at 2pm on the topic of discharge planning. SW assessed pts ability to participate in group therapy. Pt stated that he does not benefit from groups and that "it is time for my afternoon nap." SW stated that he would be discharged on back to his brothers home.
[2019-08-07 16:00] VITALS: BP 150/93
[2019-08-07] MEDS: HYDROCHLOROTHIAZIDE 25 MG TABLET PO SCH (17:44)
[2019-08-07 20:35] VITALS: BP 149/91
[2019-08-07] MEDS: TEMAZEPAM 7.5 MG CAPSULE PO PRN (21:43)
[2019-08-08 08:00] VITALS: BP 145/89
[2019-08-08] MEDS: buPROPion SR 100 MG TABLET.ER PO SCH (08:22)
[2019-08-08] MEDS: ATORVASTATIN 10 MG TABLET PO SCH (08:22)
[2019-08-08] MEDS: DIVALPROEX SODIUM 500 MG TABLET.DR PO SCH (08:22)
[2019-08-08 08:23] VITALS: BP 145/89
[2019-08-08] MEDS: HYDROCHLOROTHIAZIDE 25 MG TABLET PO SCH (08:23)
[2019-08-08] MEDS: NICOTINE PATCH (21MG) 21 MG PATCH.TD24 TD SCH (08:25)
--- NOTE | 2019-08-08 11:30 | NUR ---
HELADIO ANNA MADE AWARE OF THE DISCHARGE AND PROVIDED A PRESCRIPTIONS.
--- NOTE | 2019-08-08 11:45 | NUR ---
GPS WEB DESIGN INTERN NOTE: PATIENT IS A 59 YEAR OLD MALE DISCHARGED AT 1135. PATIENT IS IN STABLE CONDITION. AOX4 AND AMBULATORY. VSS. NO ACUTE DISTRESS NOTED. NO COMPLAINTS. COMPLIANT WITH MEDICATION MANAGEMENT. COOPERATIVE WITH PLAN OF CARE. PSYCHIATRIC TREATMENT PLANS MET. MEDICAL TREATMENT PLANS DEFERRED FOR CONTINUAL MONITORING. DENIES SI/HI AND VAH AT THE TIME OF DISCHARGE. SKIN CHECK DONE AND SKIN IS INTACT. EDUCATED PATIENT ABOUT AFTERCARE WITH COPY PROVIDED. RETURNED PERSONAL BELONGINGS TO PATIENT. MEDICATIONS RECONCILED WITH ALONG WITH PSYCHIATRIC DISCHARGE ORDERS. DISCHARGE PAPERWORK SIGNED. FOR FOLLOW UP WITH PSYCHIATRIST AND SOCIAL WORK NURSE WITHIN 1 WEEK. PATIENT LEFT THE [facility] GPS TO HIS BROTHERS HOUSE VIA [employer] AND WAS PROVIDED WITH TAP CARD.
--- NOTE | 2019-08-08 14:29 | NUR ---
Discharge Note: Pt was discharged to his brothers home located at [address], [place] at 11AM. Pt was provided with TAP cards so that the pt could take the bus. Upon discharge, the pt denied both suicidal and homicidal ideation as well as auditory and visual hallucinations to his nurse. Pt was provided with substance abuse referrals prior to discharge and are listed below. Pt was referred to under the care of [facility] Department of Mental Health for psychiatric services located at [address] [place] [address]; ; and a fax of records was sent to: . Pt has an appointment on 08/16/19 at 2pm. Pt was also referred to [facility] located at [address], [place]; for health services. Substance Abuse Referrals: [facility] [address] [facility] [place] [address] [facility] [address] [place] Provider Mental Health Treatment Tele-dermatology HIV Services Telemedicine Services [facility] [address] [place] [address] [facility] [address] [place] [address]
== END 2019-08-08 11:35 | disposition home or self-care (01) | DRG 885 ==
LOC: ER 00:19 → GPS 09:08
PROVIDERS: ADMIT Psychiatry & Neurology Psychiatry; ATTEND Hospitalist
DX: F31.5 Bipolar disorder, current episode depressed, severe, with psychotic features (principal); R45.851 Suicidal ideations; F15.10 Other stimulant abuse, uncomplicated; E78.5 Hyperlipidemia, unspecified; I10 Essential (primary) hypertension; F41.9 Anxiety disorder, unspecified; F10.10 Alcohol abuse, uncomplicated; Z91.5 Personal history of self-harm; F14.10 Cocaine abuse, uncomplicated; F12.10 Cannabis abuse, uncomplicated; Z91.14 Patient's other noncompliance with medication regimen
CPT/HCPCS: 36415; 80048-TC; 80061-TC; 80076-TC; 80164-TC; 80305; 81000-TC; 85025-TC; 87081-TC; G0480

== ENCOUNTER 2020-07-04 22:54 | Inpatient (IN) | payer MEDICARE, OTHER ==
[~2020-07-04] VITALS: Ht 180.3 cm; Wt 115.2 kg
[~2020-07-04 22:54] MED LIST changes: -BUPR150T5 PO; -DIVA-78 PO; -LORA1TAB PO; -TEMA15CA5 PO
--- NOTE | 2020-07-04 22:56 | NUR ---
CALLED FOR TRIAGE, NO ANSWER.
--- NOTE | 2020-07-04 23:00 | NUR ---
CALLED FOR TRIAGE, NO ANSWER.
--- NOTE | 2020-07-04 23:05 | NUR ---
CALLED FOR TRIAGE, NO ANSWER.
--- NOTE | 2020-07-04 23:29 | NUR ---
OCC THERAPIST CALLED STATING THAT PT CAME BACK AND WANTS TO BE SEEN.
--- NOTE | 2020-07-04 23:30 | NUR ---
PT CAM BACK STATES "I WAS OUTSIDE SMOKING CIGARETTES OUTSIDE THE WHOLE TIME".
--- NOTE | 2020-07-04 23:40 | NUR ---
PT CAME TO THE ER C/O MIDSTERNAL CHEST PAIN RADIATING TO THE L ARM SINCE 2200. +DIZZINESS +DIAPHORESIS. PT AAOX4, VSS, RESPIRATINS EVEN AND UNLABORED ON RA W/ NAD NOTED. PT CONNECTED TO THE MONITOR AND POX
--- NOTE | 2020-07-05 00:10 | NUR ---
XRAY AT BEDSIDE
[2020-07-05 00:31] LABS: BASOPHILS # (AUTO) 0.1 /CMM (0.0-0.2); BASOPHILS % (AUTO) 0.8 % (0.0-2.0); EOSINOPHILS % (AUTO) 1.9 % (0.0-6.0); HEMATOCRIT 42 % (39-51); HEMOGLOBIN 13.7 g/dL (13.5-17.5); LYMPHOCYTES # (AUTO) 1.6 /CMM (0.8-4.8); MEAN CORPUSCULAR HGB CONC 33 g/dl (31.0-36.0); MEAN CORPUSCULAR VOLUME 89 fL (80-96); MONOCYTES # (AUTO) 0.5 /CMM (0.1-1.30); MONOCYTES % (AUTO) 8.7 % (2.0-12.0); NEUTROPHILS % (AUTO) 63.6 % (43.0-81.0); PLATELET COUNT (AUTO) 207 /CMM (150-450); RED BLOOD CELL COUNT(AUTO) 4.72 MIL/uL (4.5-6.0); WHITE BLOOD COUNT (AUTO) 6.3 K/uL (4.3-11.0)
--- NOTE | 2020-07-05 00:52 | NUR ---
COVID SWAB SENT TO LAB
[2020-07-05 00:57] LABS: CALCIUM, SERUM 9.1 mg/dL (8.5-10.1); CARBON DIOXIDE 26 mmol/L (21-32); CHLORIDE 106 mmol/L (98-107); CREATININE 1.4 mg/dL (0.6-1.3); GLUCOSE 114 mg/dL (74-106); POTASSIUM 3.5 mmol/L (3.5-5.1); SODIUM SERUM 142 mmol/L (136-145); UREA NITROGEN, BLOOD 20 mg/dL (7-18)
--- NOTE | 2020-07-05 02:25 | NUR ---
REPORT GIVEN TO ZAKIYA NESBITT
--- NOTE | 2020-07-05 02:42 | NUR ---
RN NOTE PATIENT ARRIVED TO UNIT AROUND THIS TIME VIA [facility]. PATIENT IS A 60 YEAR OLD MALE OF DECENT WITH DX OF CHEST PAIN AND ACUTE KIDNEY INJURY. FULL CODE, NO ISOLATION, ALLERGIC TO ARIPIPRAZOLE. PATIENT WAS ABLE TO WALK AND TRANSFER SELF FROM [facility] TO BED WITHOUT ASSISTANCE. PATIENT IS ALERT, AWAKE, ORIENTED X4. ABLE TO MAKE NEEDS KNOWN IN [place]. SPEECH IS CLEAR. BREATHING IS EVEN AND UNLABORED, NO SOB NOTED AT THIS TIME. O2 SAT IS 100% AT ROOM AIR. PATIENT COMPLAINTS OF 3/10 SHARP CHEST PAIN THAT RADIATES OF LEFT SHOULDER. PATIENT VERBALIZED THAT CHEST PAIN HAS BEEN RELIEVED SINCE COMING TO THE HOSPITAL. PATIENT IS ON CARDIAC DIET, CONTINENT OF BOWEL AND BLADDER. IV SITE ON RIGHT HAND GAUGE 22 IS CLEAN, DRY, AND PATENT. SKIN IS INTACT. PATIENT WEARS GLASSES FOR VISUAL IMPAIRMENT. NO DENTURES NOTED. PATIENT ADMITS TO SMOKING TO HALF A PACK OF CIGARETTES A DAY AND DRINKS TWO CANS OF BEER A DAY. PATIENT ALSO VERBALIZED THAT HE HAD ALREADY RECEIVED PNEUMONIA AND INFLUENZA VACCINE THIS 2019. ORIENTED PATIENT TO ROOM ENVIRONMENT. BED IS LOWERED AND LOCKED FOR SAFETY. CALL LIGHT IS WITHIN EASY REACH. WILL CONTINUE TO MONITOR.
[2020-07-05] MEDS ORDERED: Z GUARD REMEDY 2 OZ OINT TP PRN (03:00)
[2020-07-05] MEDS ORDERED: ZOLPIDEM TARTRATE 5 MG TABLET PO PRN (03:00)
[2020-07-05] MEDS ORDERED: MORPHINE SULFATE INJ 2 MG/ML DISP.SYRIN IV PRN (03:00)
[2020-07-05] MEDS ORDERED: ONDANSETRON HCL/PF 4 MG/2 ML VIAL IVP PRN (03:00)
[2020-07-05] MEDS ORDERED: ACETAMINOPHEN 325 MG TABLET PO PRN (03:00)
[2020-07-05 03:01] VITALS: BP 127/85
[2020-07-05 04:00] VITALS: BP 137/81
--- NOTE | 2020-07-05 07:15 | NUR ---
RN NOTE PATIENT REMAINED STABLE THROUGHOUT THE NIGHT. NO SIGNIFICANT CHANGES NOTED. PATIENT IS KEPT CLEAN, DRY, AND COMFORTABLE. IN NO APPARENT DISTRESS NOTED. ALL NEEDS ATTENDED AND MET. WILL CONTINUE TO MONITOR.
[2020-07-05 07:49] LABS: THYROID STIMULATING HORMONE 1.777 uIU/mL (0.358-3.74)
--- NOTE | 2020-07-05 07:58 | NUR ---
TWISTING FRAME FIXER NOTE: PT IN BED ASLEEP, BUT AROUSABLE TO VERBAL STIMULI. PT A/O X 4. PT ON RA O2 SATURATION 100%. NO SIGNS OR RESPIRATORY DISTRESS WITH EVEN AND UNLABORED BREATHING. PT ON MONITOR SHOWING SR. PT SKIN IS INTACT AND IS AMBULATORY. PT HAS RIGHT HAND #22 IV, NO SIGNS OF INFECTION OR INFILTRATION. BED IN LOWEST LOCKED POSITION. ALL SAFETY MEASURES IN PLACE. CALL LIGHT WITHIN REACH. WILL CONTINUE TO MONITOR CLOSELY.
[2020-07-05 08:00] VITALS: BP 146/87
[2020-07-05 08:17] LABS: BASOPHILS # (AUTO) 0.1 /CMM (0.0-0.2); BASOPHILS % (AUTO) 0.9 % (0.0-2.0); EOSINOPHILS % (AUTO) 1.9 % (0.0-6.0); HEMATOCRIT 39 % (39-51); HEMOGLOBIN 12.4 g/dL (13.5-17.5); LYMPHOCYTES # (AUTO) 1.5 /CMM (0.8-4.8); LYMPHOCYTES % (AUTO) 25.1 % (20.0-44.0); MEAN CORPUSCULAR HGB CONC 32 g/dl (31.0-36.0); MEAN CORPUSCULAR VOLUME 89 fL (80-96); MONOCYTES # (AUTO) 0.7 /CMM (0.1-1.30); MONOCYTES % (AUTO) 11.9 % (2.0-12.0); NEUTROPHILS # (AUTO) 3.6 /CMM (1.8-8.9); NEUTROPHILS % (AUTO) 60.2 % (43.0-81.0); PLATELET COUNT (AUTO) 181 /CMM (150-450); RED BLOOD CELL COUNT(AUTO) 4.31 MIL/uL (4.5-6.0); WHITE BLOOD COUNT (AUTO) 6.1 K/uL (4.3-11.0)
[2020-07-05] MEDS: CARVEDILOL 3.125 MG TABLET PO SCH ×2 (08:23→17:43)
[2020-07-05] MEDS: PANTOPRAZOLE 40 MG TABLET.DR PO SCH (08:24)
[2020-07-05] MEDS: ATORVASTATIN 10 MG TABLET PO SCH (08:24)
[2020-07-05] MEDS: ASPIRIN EC 81 MG TABLET.DR PO SCH (08:24)
[2020-07-05] MEDS: ENOXAPARIN SODIUM 40 MG/0.4 ML DISP.SYRIN SQ SCH ×2 (08:27→09:00)
[2020-07-05 08:29] LABS: CALCIUM, SERUM 8.6 mg/dL (8.5-10.1); CREATININE 1.2 mg/dL (0.6-1.3); MAGNESIUM 2.2 mg/dL (1.8-2.4); PHOSPHORUS 3.4 mg/dL (2.5-4.9); POTASSIUM 3.9 mmol/L (3.5-5.1)
--- NOTE | 2020-07-05 08:32 | NUR ---
CIRCLE EDGER NOTE: PT REFUSED LOVENOX DESPITE RN EDUCATION 3X TIMES
--- NOTE | 2020-07-05 11:34 | NUR ---
POST EXCHANGE MANAGER NOTE: CONSENT OBTAINED FOR CT ANGIOGRAM. LEFT HAND #20 GAUGE OBTAINED.
[2020-07-05 12:00] VITALS: BP 162/82
[2020-07-05 16:00] VITALS: BP 144/78
--- NOTE | 2020-07-05 16:12 | NUR ---
Spoke with patient, states he lives in [place] with his brother. He is ambulatory and independent with adl's. Has no DME or homehealth reported. He is complaining of chronic back pain and requested short term SNF once discharge. Faxed referral to [facility] [phone] per patient request. Addendum: 07/05/20 at 1613 by ANGEL STEVENS RN Amended: Links added.
--- NOTE | 2020-07-05 16:15 | NUR ---
Spoke with patient, states he lives in [place] with his brother. He is ambulatory and independent with adl's. Has no DME or homehealth reported. He is complaining of chronic back pain and requested short term SNF once discharge rehab due to back pain. Faxed referral to [facility] [phone] and [facility] [phone] per patient request. Addendum: 07/05/20 at 2031 by ANGEL STEVENS RN Amended: Links added.
[2020-07-05 18:24] LABS: APPEARANCE,URINE CLOUDY (CLEAR); BILIRUBIN,URINE NEGATIVE (NEGATIVE); BLOOD, URINE NEGATIVE Ery/uL (NEGATIVE); COLOR,URINE YELLOW (YELLOW); KETONES,URINE NEGATIVE (NEGATIVE); LEUKOCYTE ESTERASE ,URINE NEGATIVE (NEGATIVE); NITRITE, URINE NEGATIVE (NEGATIVE); PROTEIN,URINE NEGATIVE (NEGATIVE); UGLUCOSE NEGATIVE (NEGATIVE); UROBILINOGEN,URINE 0.2 EU/dL (0.2)
[2020-07-05 18:27] LABS: CREATININE, URINE 213.6 MG/DL (30.0-125.0); URINE TOTAL PROTEIN 14.5 mg/dL (0-11.9)
[2020-07-05 18:35] LABS: BACTERIA,URINE None seen /HPF (None Seen); RBC,URINE 0-2 /HPF (0-2); SQUAMOUS EPITHELIAL CELL,UR 0-2 /HPF (None Seen); URINE AMORPHOUS URATE Moderate /HPF (None Seen); WBC,URINE 0-2 /HPF (0-3)
--- NOTE | 2020-07-05 18:54 | NUR ---
HARDWOOD FLOOR FINISHER NOTE: PT IN BED, EYES OPEN, A/0X4. PT ON RA WITH O2 SATURATION 100%, NO RESPIRATORY DISTRESS OR SOB. PT ON MONITOR SHOWING SR 77. PT IS AMBULATORY WITH SKIN INTACT. PT ON CARDIAC DIET INDEPENDENT FEEDING. PT HAS RIGHT HAND #22 PIV, LEFT HAND #20 PIV, AND JAZZMINE MIDLINE. ALL INTACT AND FLUSHED WELL WITH NO SIGNS OF INFECTION OR INFILTRATION. PT TO HAVE CT ANGIOGRAM TOMORROW, CONSENT SIGNED. BED IN LOWEST LOCKED POSITION. CALL LIGHT WITHIN REACH. ALL SAFETY MEASURES IN PLACE. WILL GIVE REPORT TO ONCOMING RN FOR BETO.
--- NOTE | 2020-07-05 19:30 | NUR ---
CLINICAL CODER NOTE, PATIENT IN BED, SLEEPING AT THIS TIME , BUT AROUSES EASILY TO VERBAL STIMULI, BREATHING EVEN AND UNLABORED, NO S/S OF SOB/ACUTE RESPIRATORY DISTRESS NOTED, NSR ON TELE MONITOR WITH HR IN 70S AT THIS TIME, .PIV LINE RIGHT HAND #22 PIV, LEFT HAND #20 PIV, AND JAZZMINE MIDLINE ALL PATENT AND INTACT, NO SIGNS OF INFECTION OR INFILTRATION, WILL HAVE CT ANGIOGRAM TOMORROW, CONSENT SIGNED IN CHART, AWARE OF TEST TOMORROW, BED LOCKED AND LOWEST POSITION, CALL LIGHT W/I REACH. ALL SAFETY MEASURES IN PLACE, WILL CONTINUE TO MONITOR PATIENT CLOSELY.
[2020-07-05 19:55] LABS: EOSINOPHIL,URINE None Seen
[2020-07-05 20:00] VITALS: BP 132/88
--- NOTE | 2020-07-05 20:28 | NUR ---
Accepted by Jane at [facility] [phone], Nena at [facility] is still reviewing case. Addendum: 07/05/20 at 2029 by ANGEL STEVENS RN Amended: Links added.
[2020-07-06] VITALS: BP 128/79
[2020-07-06 02:58] LABS: BASOPHILS % (AUTO) 0.3 % (0.0-2.0); EOSINOPHILS % (AUTO) 2.1 % (0.0-6.0); HEMATOCRIT 37 % (39-51); HEMOGLOBIN 11.8 g/dL (13.5-17.5); LYMPHOCYTES # (AUTO) 1.7 /CMM (0.8-4.8); LYMPHOCYTES % (AUTO) 34.5 % (20.0-44.0); MEAN CORPUSCULAR HGB CONC 32 g/dl (31.0-36.0); MEAN CORPUSCULAR VOLUME 89 fL (80-96); MONOCYTES # (AUTO) 0.5 /CMM (0.1-1.30); MONOCYTES % (AUTO) 10.3 % (2.0-12.0); NEUTROPHILS # (AUTO) 2.5 /CMM (1.8-8.9); NEUTROPHILS % (AUTO) 52.8 % (43.0-81.0); PLATELET COUNT (AUTO) 184 /CMM (150-450); RED BLOOD CELL COUNT(AUTO) 4.09 MIL/uL (4.5-6.0); WHITE BLOOD COUNT (AUTO) 4.8 K/uL (4.3-11.0)
[2020-07-06 03:16] LABS: ALBUMIN 2.6 g/dL (3.4-5.0); BILIRUBIN,TOTAL 0.1 mg/dL (0.2-1.0); CREATININE 1.1 mg/dL (0.6-1.3); MAGNESIUM 2.1 mg/dL (1.8-2.4); PHOSPHORUS 3.2 mg/dL (2.5-4.9); POTASSIUM 3.6 mmol/L (3.5-5.1); TOTAL PROTEIN, SERUM 6.1 g/dL (6.4-8.2)
--- NOTE | 2020-07-06 04:03 | NUR ---
pt refused EKG procedure, ZAKIYA Bruner at bedside, and Charge Nurse Melony made aware
--- NOTE | 2020-07-06 04:04 | NUR ---
EXTRACTOR LOADER AND UNLOADER NOTES, PATIENT REFUSED VITAL SIGNS, ALSO REFUSED EKG AT THIS TIME, CHARGE NURSE AWARE.
--- NOTE | 2020-07-06 06:44 | NUR ---
JEWELRY SORTER NOTE, PATIENT IN BED, STILL SLEEPING, BUT AROUSES EASILY TO VERBAL STIMULI,NO DISTRESS, PAIN OR DISCOMFORT THROUGHOUT THE NIGHT, CONTINUE NSR ON TELE MONITOR WITH HR IN 60-70S DURING THE NIGHT, WILL HAVE CT ANGIOGRAM THIS MORNING, BED LOCKED AND LOWEST POSITION, CALL LIGHT W/I REACH, ALL SAFETY MEASURES IN PLACE, WILL ENDORSE CONTINUITY OF CARE TO ONCOMING NURSE
[2020-07-06 08:00] VITALS: BP 144/93
[2020-07-06] MEDS: ASPIRIN EC 81 MG TABLET.DR PO SCH (08:37)
[2020-07-06] MEDS: ATORVASTATIN 10 MG TABLET PO SCH (08:37)
[2020-07-06] MEDS: PANTOPRAZOLE 40 MG TABLET.DR PO SCH (08:37)
[2020-07-06] MEDS: ENOXAPARIN SODIUM 40 MG/0.4 ML DISP.SYRIN SQ SCH (08:39)
[2020-07-06] MEDS: CARVEDILOL 3.125 MG TABLET PO SCH ×2 (08:40→17:39)
[2020-07-06 10:29] VITALS: BP 135/69
[2020-07-06] MEDS ORDERED: METO25TA20 PO (10:31)
[2020-07-06 12:00] VITALS: BP 133/89
--- NOTE | 2020-07-06 15:50 | NUR ---
Pt requested that I remove all iv lines. All 3 lines removed. Catheter tips intact. Gauze and tape and manual pressure applied. Pt tolerated well.
--- NOTE | 2020-07-06 17:32 | NUR ---
Report called to ZAKIYA Engle of [facility]. D/c instructions explained and copy of records & patient's personal belongings given to EMS. Pt AAOx4 with ABC's intact. Pt visibly happy and admits to being relieved that he is leaving.
[2020-07-06 17:35] VITALS: BP 164/96
[2020-07-06 17:39] VITALS: BP 164/96
[2020-07-07 08:08] LABS: PTH, INTACT 38 pg/mL (15-65)
[2020-07-07 12:06] LABS: *SPE A/G RATIO 0.9 (0.7-1.7); *SPE ALBUMIN 2.7 g/dL (2.9-4.4); *SPE ALPHA-1-GLOBULIN 0.2 g/dL (0.0-0.4); *SPE ALPHA-2-GLOBULIN 0.8 g/dL (0.4-1.0); *SPE BETA GLOBULIN 0.9 g/dL (0.7-1.3); *SPE GLOBULIN, TOTAL 2.9 g/dL (2.2-3.9); *SPE M-SPIKE Not Observed g/dL (Not Observed)
== END 2020-07-06 17:40 | DRG 311 ==
LOC: ER 22:57 → TELE1 07-05 02:09
PROVIDERS: ADMIT Internal Medicine; ATTEND Internal Medicine
PROC: 05HY33Z Insertion of Infusion Device into Upper Vein, Percutaneous Approach (ICD-10-PCS; principal; 2020-07-05)
DX: I20.0 Unstable angina (principal); N17.0 Acute kidney failure with tubular necrosis; I50.9 Heart failure, unspecified; I11.0 Hypertensive heart disease with heart failure; K21.9 Gastro-esophageal reflux disease without esophagitis; E78.00 Pure hypercholesterolemia, unspecified; E78.5 Hyperlipidemia, unspecified; Z83.3 Family history of diabetes mellitus; F31.9 Bipolar disorder, unspecified; F17.200 Nicotine dependence, unspecified, uncomplicated; Z88.8 Allergy status to other drugs, medicaments and biological substances; F14.90 Cocaine use, unspecified, uncomplicated; F12.90 Cannabis use, unspecified, uncomplicated; Z79.899 Other long term (current) drug therapy; F39 Unspecified mood [affective] disorder
CPT/HCPCS: 36415; 71045-TC; 76770-TC; 80048-TC; 80053-TC; 80061-TC; 81000-TC; 82550-TC; 82553; 82570-TC; 83540-TC; 83735-TC; 83970; 84100-TC; 84155; 84155-TC; 84165; 84300-TC; 84443-TC; 84484-TC; 85025-TC; 87081-TC; 93307-TC; C9803; G0378; J1650

== ENCOUNTER 2020-07-13 14:02 | Inpatient (IN) | payer MEDICARE, OTHER ==
[~2020-07-13] VITALS: Ht 180.3 cm; Wt 115.7 kg
[~2020-07-13 14:02] MED LIST changes: +METO25TA20 PO
--- NOTE | 2020-07-13 14:12 | NUR ---
CALLED PATIENT IN THE WAITING ROOM, NO ANSWER.
--- NOTE | 2020-07-13 14:30 | NUR ---
C/O SUICIDAL IDEATION, PLAN IS TO "OVERDOSE ON MEDS" ADMIT TO USE OF METH, MARIJUANA AND ALCOHOL LAST NIGHT. PATIENT A/OX4, BREATHING EVEN AND UNLABORED, NO SOB NOTED, NEEDS ATTENDED. CALLED SECURITY FOR WANDING.
[2020-07-13 15:21] LABS: MEAN CORPUSCULAR HGB CONC 32 g/dl (31.0-36.0); MONOCYTES # (AUTO) 0.9 /CMM (0.1-1.30)
[2020-07-13 15:25] LABS: APPEARANCE,URINE CLEAR (CLEAR); BILIRUBIN,URINE NEGATIVE (NEGATIVE); BLOOD, URINE NEGATIVE Ery/uL (NEGATIVE); COLOR,URINE YELLOW (YELLOW); KETONES,URINE NEGATIVE (NEGATIVE); LEUKOCYTE ESTERASE ,URINE NEGATIVE (NEGATIVE); NITRITE, URINE NEGATIVE (NEGATIVE); PH,URINE 5.5 (5.0-8.0); PROTEIN,URINE NEGATIVE (NEGATIVE); UGLUCOSE NEGATIVE (NEGATIVE); UROBILINOGEN,URINE 0.2 EU/dL (0.2)
[2020-07-13 15:32] LABS: BASOPHILS % (AUTO) 1.4 % (0.0-2.0); CALCIUM, SERUM 8.8 mg/dL (8.5-10.1); CREATININE 1.2 mg/dL (0.6-1.3); EOSINOPHILS % (AUTO) 1.3 % (0.0-6.0); HEMATOCRIT 41 % (39-51); HEMOGLOBIN 12.9 g/dL (13.5-17.5); LYMPHOCYTES % (AUTO) 25.2 % (20.0-44.0); MEAN CORPUSCULAR VOLUME 90 fL (80-96); MONOCYTES % (AUTO) 8.7 % (2.0-12.0); NEUTROPHILS % (AUTO) 63.4 % (43.0-81.0); PLATELET COUNT (AUTO) 211 /CMM (150-450); POTASSIUM 3.6 mmol/L (3.5-5.1); RED BLOOD CELL COUNT(AUTO) 4.54 MIL/uL (4.5-6.0); WHITE BLOOD COUNT (AUTO) 10.7 K/uL (4.3-11.0)
[2020-07-13 15:33] LABS: BASOPHILS # (AUTO) 0.2 /CMM (0.0-0.2); LYMPHOCYTES # (AUTO) 2.7 /CMM (0.8-4.8); NEUTROPHILS # (AUTO) 6.8 /CMM (1.8-8.9)
[2020-07-13 15:47] LABS: ALBUMIN 3.4 g/dL (3.4-5.0); BILIRUBIN,DIRECT 0.1 mg/dL (0.0-0.2); BILIRUBIN,TOTAL 0.4 mg/dL (0.2-1.0); TOTAL PROTEIN, SERUM 7.6 g/dL (6.4-8.2)
[2020-07-13 16:12] LABS: LYMPHOCYTES % (MANUAL) 18 % (16-48); MONOCYTES % (MANUAL) 9 % (0-11.0); NEUTROPHILS % (MANUAL) 73 (42-76)
--- NOTE | 2020-07-13 16:50 | NUR ---
Wellness Nurse consult requested by ED RN Zheng. Patient is a 60-year-old male. Patient is alert and oriented x4. Patient was sitting up and watching TV monitor. Patient muted TV monitor to speak with this SW. Patient confirmed demographics on face sheet including date of , social security number, current address, and emergency contacts. Patient reports current suicidal ideation to overdose on pills. Patient reports that he has been seen at [facility] by Dr. Narvaez and would like to be admitted for Dr. Narvaez to follow his case. Patient reports that this is the most recent suicidal ideation. Per patient, has been following up on medications from previous psychiatric admission but still remains suicidal. Patient reports that he has been admitted to [facility] inpatient over the last few weeks for medical condition. Patient reports that he is living at home with his brother and receives $1000 in disability. SW to follow up with admitting about patient being admitted to [facility]. SW informed patient that depending on availability patient may be admitted to [facility] but may need to be referred to another facility. Patient in understanding. BRENT spoke with Meliza in [facility] intake. Meliza informed this SW that the patient should be referred out as patient is on the VIP list for [facility]. Per BRENT Haider to confirm with Cynthia Osorio, PRODUCT SUPPORT MANAGER, DSW, BCD regarding patient status.
--- NOTE | 2020-07-13 17:00 | NUR ---
Plan: ED to fax COVID test to [facility] when received back from lab.
--- NOTE | 2020-07-13 17:00 | NUR ---
Patient in agreement for voluntary psychiatric treatment at [facility] or [place] locations only. SW informed Efrain at [facility] and faxed clinicals. ED ZAKIYA Calzada and Dr. Galdamez made aware.
--- NOTE | 2020-07-13 17:17 | NUR ---
PT REFUSED COVID SWAB
--- NOTE | 2020-07-13 17:47 | NUR ---
DINNER PROVIDED, TOLERATED PO WELL.
--- NOTE | 2020-07-13 17:50 | NUR ---
ELIZABETH WHEELER AND DR HARRY APPROVED PATIENT ABLE TO GO TO GPS
--- NOTE | 2020-07-13 18:03 | NUR ---
CALLED KERRY SIGALA FOR CRISIS EVAL.
--- NOTE | 2020-07-13 18:13 | NUR ---
Clinical Social Work Note Spoke with Dr Narvaez who is willing to admit patient to [facility] unit today. Patient is well known to Dr Narvaez. This clinician spoke with patient and he is agreeable to coming in to the unit at [facility]. Patient does not need crisis evaluation as is well known to Dr Narvaez. Patient was seen by Magalis CHEN in ED earlier today. Advised Erum gonzalez RN and Yee munozmixing house operator that patient will be coming in to the unit.
--- NOTE | 2020-07-13 18:25 | NUR ---
covid swab test collected and sent to lab
--- NOTE | 2020-07-13 18:58 | NUR ---
LAB CALLED PT COVID NEG (-)
--- NOTE | 2020-07-13 20:06 | NUR ---
REPORT GIVEN TO ZAKIYA GARRISON FOR [facility]O
[2020-07-13] MEDS ORDERED: MAGNESIUM HYDROXIDE 30 ML UDC PO PRN (20:30)
[2020-07-13] MEDS ORDERED: BLOOD SUGAR DIAGNOSTIC 1 EACH STRIP IN ONE (20:30)
[2020-07-13] MEDS ORDERED: MAG HYDROX/AL HYDROX/SIMETH 30 ML UDC PO PRN (20:30)
[2020-07-13] MEDS ORDERED: ACETAMINOPHEN 325 MG TABLET PO PRN (20:30)
[2020-07-13 22:12] VITALS: BP 150/90
[2020-07-13] MEDS: METOPROLOL TARTRATE 25 MG TABLET PO SCH (22:30)
--- NOTE | 2020-07-13 22:38 | NUR ---
GPS RN NOTES: REFUSED LOPRESSOR PT REFUSED LOPRESSOR DUE. PT STATED, "IM SURE MY BLOOD PRESSURE WENT DOWN. I JUST WANT TO REST RIGHT NOW A SLEEP PLEASE. CAN DAY TIME CHECK IT LATER." EXPLAIN RISKS AND BENEFITS. PT STILL REFUSED X3. CONTINUE TO MONITOR.
--- NOTE | 2020-07-13 23:18 | NUR ---
GPS RN NOTES: ADMISSION ADMITTED 60 YEAR OLD MALE. PT ADMITTED FROM [facility] ER TO GPS ON A VOLUNTARY HOLD. PT ORIGINALLY CAME FROM HOME LIVING WITH HIS BROTHER. PT CAME TO [facility] ER DUE TO SUICIDAL IDEATION WITH A PLAN TO OVERDOSE ON MEDS. PER PT, HE USES METH, MARIJUANA, ALCOHOL, AND SMOKING. PT REFUSES ORDER FOR NICOTINE PATCH. UPON FACE TO FACE ASSESSMENT PT IS A/O X3-4, COOPERATIVE, NEEDY, FLAT AFFECT, ANXIOUS, RESERVED, GUARDED, EASILY AGITATED, AND DEPRESSED. PT ANA HI AT THIS TIME AND IS HAVING SI BUT NO PLANS OF RIGHT NOW. PT IS VAGUE AND REFUSED TO ANSWER SOME QUESTIONS. PT REFUSED TO SIGN CONSENT PAPERS DUE TO TIREDNESS AND WANTS TO GO TO SLEEP. PT STATED HE DOES NOT WANT TO LET ANYONE KNOW HE IS AT THE HOSPITAL AND DOES NOT WANT THE HOSPITAL TO NOTIFY FAMILY/FRIEND . PT SIGNED A NON DISCLOSURE PAPER. WILL ENDORSE TO DAY SHIFT TO CONTINUE PTS REQUEST. ENVIRONMENTAL SAFETY CHECK DONE Q15 MIN. ENCOURAGE TO VERBALIZE THOUGHTS AND FEELINGS TO STAFF. ORIENTED PT TO THE UNIT. NURSING ASSESSMENT DONE. SKIN ASSESSMENT DONE. WITH NOTED OLD SCARS ON THE PTS RIGHT WRISTS AND THIGH. PICTURES TAKEN AND OUT IN THE CHART. INITIAL BLOOD SUGAR CHECKED DONE. CISCO CONSULTANT MD DR GUNN NOTIFIED REGARDING PTS ADMISSION AND MED RECON. PAGED DR MESSER REGARDING ADMISSION. CONTRABAND CHECKED AND PUT IN PTS LOCKER. PT RIGHTS DISCUSSED BY REGULATORY COMPLIANCE MANAGER. PROVIDED PT WITH HANDBOOK AND MED GUIDE. NO SOB. BREATHING EVEN AND UNLABORED. BED ALARM ON. NO PAIN AT THIS TIME. NO RESP DISTRESS.
[2020-07-14 08:00] VITALS: BP 135/81
[2020-07-14] MEDS: ASPIRIN EC 81 MG TABLET.DR PO SCH (09:16)
[2020-07-14] MEDS: THIAMINE HCL 100 MG TABLET PO SCH (09:16)
[2020-07-14] MEDS: FOLIC ACID 1 MG TABLET PO SCH (09:16)
[2020-07-14] MEDS: ATORVASTATIN 10 MG TABLET PO SCH (09:16)
[2020-07-14] MEDS: METOPROLOL TARTRATE 25 MG TABLET PO SCH ×2 (09:17→16:50)
[2020-07-14] MEDS: MULTIVITAMINS,THERAGRAN 1 UDTAB TABLET PO SCH (09:17)
--- NOTE | 2020-07-14 10:41 | NUR ---
BRENT INITIAL DISCHARGE PLAN: Patient currently resides with his brother, Rafal at a home located at [address] [place] [address]; [phone]. Per pt, he would like to be discharged back to his brothers house. BRENT will work with the pt and the MD regarding appropriate discharge planning. BRENT will form a safe and proper discharge.
--- NOTE | 2020-07-14 10:45 | NUR ---
SUBSTANCE ABUSE INTERVENTION: Patient was provided with a brief substance abuse intervention and referred to the following substance abuse programs: [facility] Substance Abuse Self-helpline ([phone]); [facility] [address] [place] [address] ([phone]); [facility] [address] [facility] [address] ([phone]); [facility] ([phone]); [facility] ([phone]); [facility] ([phone]); [facility] ([phone]).
[2020-07-14] MEDS: DIVALPROEX SODIUM 500 MG TABLET.DR PO SCH ×2 (11:02→20:09)
[2020-07-14] MEDS: BUPROPION XL 150 MG TAB.ER.24 PO SCH (11:02)
--- NOTE | 2020-07-14 12:39 | NUR ---
RN NOTE- STAFF APPROACHED THIS RN AND STATED THAT THIS PT GAVE MILK TO ANOTHER PT AT LUNCHTIME. THE STAFF IN LUNCHROOM TOLD HIM NOT TO DO THIS PT IS ON SPECIAL DIET AND THICKENED LIQUIDS. THIS PT THEN CALLED THEM "LAZY !@#" BECAME OPPOSITIONAL AND IRRITABLE. LATER, STAFF AND I WENT TO THIS PTS ROOM AND EXPLAINED THAT WE DON'T ALLOW THIS SORT OF TALK TO STAFF AND EXPLAINED THE INTERACTION AND REASONS FOR IT. VERBALIZED UNDERSTANDING. PT CALM AND DIRECTABLE.
[2020-07-14 16:00] VITALS: BP 122/78
[2020-07-14 18:24] LABS: CREATININE 1.2 mg/dL (0.6-1.3)
[2020-07-14 18:32] LABS: CHOLESTEROL 184 mg/dL (<200); HDL CHOLESTEROL 61 mg/dL (40-60); LDL 101 mg/dL (0-99); TRIGLYCERIDES 112 mg/dL (30-150)
[2020-07-14 20:09] VITALS: BP 118/76
[2020-07-14 21:50] VITALS: BP 121/73
[2020-07-14] MEDS: LORAZEPAM 1 MG TABLET PO PRN (21:55)
--- NOTE | 2020-07-14 21:56 | NUR ---
GPS RN NOTES: ANXIOUS PT C/O OF FEELING ANXIOUS. VITALS CHECKED WNL. OFFERED ATIVAN 1MG PO PRN ORDERED. PT AGREED AND TOLERATED MEDICATION WELL. CONTINUE TO MONITOR.
[2020-07-15 08:00] VITALS: BP 125/78
[2020-07-15] MEDS: METOPROLOL TARTRATE 25 MG TABLET PO SCH ×2 (09:08→17:00)
[2020-07-15] MEDS: BUPROPION XL 150 MG TAB.ER.24 PO SCH (09:08)
[2020-07-15] MEDS: ASPIRIN EC 81 MG TABLET.DR PO SCH (09:08)
[2020-07-15] MEDS: ATORVASTATIN 10 MG TABLET PO SCH (09:09)
[2020-07-15] MEDS: THIAMINE HCL 100 MG TABLET PO SCH (09:09)
[2020-07-15] MEDS: DIVALPROEX SODIUM 500 MG TABLET.DR PO SCH ×2 (09:09→21:26)
[2020-07-15] MEDS: FOLIC ACID 1 MG TABLET PO SCH (09:09)
[2020-07-15] MEDS: MULTIVITAMINS,THERAGRAN 1 UDTAB TABLET PO SCH (09:09)
[2020-07-15] MEDS: LORAZEPAM 1 MG TABLET PO PRN ×2 (11:37→19:51)
--- NOTE | 2020-07-15 13:29 | NUR ---
BRENT INDIVIDUAL INTERVENTION: SW met with patient to discuss discharge planning. Patient expressed concerns about his future and where he would like to go however was able to set realistic goals. Patient would like to return back to his brothers house. willow worker assessed patient's level of suicidality and patient denies having suicidal ideation and no plan or intent.
[2020-07-15 19:48] VITALS: BP 126/72
--- NOTE | 2020-07-15 19:52 | NUR ---
GPS RN NOTE: ANXIETY PATIENT VERBALIZED THAT HE IS FEELING ANXIOUS & RESTLESS & REQUESTED TO TAKE ATIVAN. VITALS CHECKED & WNL. PRN ATIVAN 1 MG PO GIVEN ORDERED. WILL CONTINUE TO MONITOR.
[2020-07-15 19:55] VITALS: BP 126/72
--- NOTE | 2020-07-15 21:29 | NUR ---
GPS RN NOTE PATIENT IS EASILY AGITATED/IRRITABLE, OFFERED HIM DEPAKOTE SCHEDULED BUT PATIENT REFUSED AT FIRST & GOT AGITATED THAT WHY HE WAS WOKEN UP TO GIVE MEDICINE, EXPLAINED TO HIM ABOUT HIS SCHEDULED MEDICINE & PATIENT AGREED TO TAKE DEPAKOTE. REDIRECTABLE AT THIS TIME. WILL CONTINUE TO MONITOR.
[2020-07-16 08:00] VITALS: BP 142/75
[2020-07-16] MEDS: FOLIC ACID 1 MG TABLET PO SCH (08:19)
[2020-07-16] MEDS: BUPROPION XL 150 MG TAB.ER.24 PO SCH (08:19)
[2020-07-16] MEDS: ASPIRIN EC 81 MG TABLET.DR PO SCH (08:19)
[2020-07-16 08:20] VITALS: BP 142/75
[2020-07-16] MEDS: THIAMINE HCL 100 MG TABLET PO SCH (08:20)
[2020-07-16] MEDS: DIVALPROEX SODIUM 500 MG TABLET.DR PO SCH (08:20)
[2020-07-16] MEDS: MULTIVITAMINS,THERAGRAN 1 UDTAB TABLET PO SCH (08:20)
[2020-07-16] MEDS: ATORVASTATIN 10 MG TABLET PO SCH (08:20)
[2020-07-16] MEDS: METOPROLOL TARTRATE 25 MG TABLET PO SCH (08:20)
--- NOTE | 2020-07-16 12:18 | NUR ---
DISCHARGE NOTE: Patient is choosing to be discharged AMA back to his brothers home [address] [place] [address] ([phone]). Patient is alert and oriented times 4, and is aware and agreeable with discharge plan. Patient denies suicidal or homicidal ideation. Patient presents with euthymic mood and congruent affect. Patient will be following up with a psychiatrist at [facility] located at [address] [place] [address] ([phone]) and has an appointment scheduled on July 20, 2020 at 8:30AM. Patient is referred to [facility] located at [address], [place] ([phone]) for walk-in health services. Patient was provided with a brief substance abuse intervention and referred to the following substance abuse programs: [facility] Substance Abuse Self-helpline ([phone]); [facility] [address] [place] [address] ([phone]); [facility] [address] [facility] [address] ([phone]); [facility] ([phone]); [facility] ([phone]); [facility] ([phone]); [facility] ([phone]).
--- NOTE | 2020-07-16 12:30 | NUR ---
Dr. Narvaez gave an order to discharge pt. AMA. Psychiatrist spoke to the pt., pt. denies suicidal and homicidal. Pt. was explained on the risks and the consequences involved in leaving AMA and signed the AMA form.
--- NOTE | 2020-07-16 13:00 | NUR ---
GPS/RN - Discharge Note Patient was discharged against medical advice to his brother's home, alert and oriented x 4, calm, ambulatory with steady gait, denies pain, not in any form of distress, afebrile. Patient is compliant with medications and cooperative with treatment plans. Patient denies suicidal ideation or homicidal ideation, no visual or auditory hallucinations at this time and instructed to go to the nearest ER if developing SI/HI. Reviewed discharge instructions with patient and he verbalized full understanding. Patient will be following up with a psychiatrist at [facility] located at [address] [id number] ([phone]) and has an appointment scheduled on July 20, 2020 at 8:30AM. Patient was referred to [facility] located at [address], [place] ([phone]) for walk-in health services. Educated patient about after care plan and copy provided. Patient refused pictures to be taken. Returned all personal belongings to patient and he deny any missing items. Patient left the unit at 12:45 and was provided a bus token per request.
== END 2020-07-16 12:45 | disposition left against medical advice (07) | DRG 885 ==
LOC: ER 14:12 → GPS 19:54
PROVIDERS: ADMIT Psychiatry & Neurology Psychiatry
DX: F31.5 Bipolar disorder, current episode depressed, severe, with psychotic features (principal); I11.0 Hypertensive heart disease with heart failure; I50.42 Chronic combined systolic (congestive) and diastolic (congestive) heart failure; F29 Unspecified psychosis not due to a substance or known physiological condition; F41.9 Anxiety disorder, unspecified; E78.5 Hyperlipidemia, unspecified; I10 Essential (primary) hypertension; F10.10 Alcohol abuse, uncomplicated; F15.10 Other stimulant abuse, uncomplicated; E78.00 Pure hypercholesterolemia, unspecified; E11.9 Type 2 diabetes mellitus without complications; F12.10 Cannabis abuse, uncomplicated; F19.10 Other psychoactive substance abuse, uncomplicated; Z91.09 Other allergy status, other than to drugs and biological substances; F17.200 Nicotine dependence, unspecified, uncomplicated; E66.9 Obesity, unspecified; M19.90 Unspecified osteoarthritis, unspecified site; K21.9 Gastro-esophageal reflux disease without esophagitis; Z68.35 Body mass index [BMI] 35.0-35.9, adult; Z81.8 Family history of other mental and behavioral disorders; Z83.3 Family history of diabetes mellitus
CPT/HCPCS: 36415; 80048-TC; 80061-TC; 80076-TC; 81000-TC; 82565-TC; 82962-TC; 85025-TC; 87081-TC; G0480

== ENCOUNTER 2020-08-31 21:31 | Emergency (ER) | payer MEDICARE, OTHER ==
[~2020-08-31] VITALS: Ht 180.3 cm; Wt 113.4 kg
--- NOTE | 2020-08-31 21:51 | NUR ---
CALLED PATIENT TO BE TRIAGED. NOT IN WAITING ROOM
[2020-08-31 22:34] LABS: BASOPHILS # (AUTO) 0.1 /CMM (0.0-0.2); BASOPHILS % (AUTO) 1.9 % (0.0-2.0); EOSINOPHILS % (AUTO) 1.8 % (0.0-6.0); HEMATOCRIT 45 % (39-51); HEMOGLOBIN 14.2 g/dL (13.5-17.5); LYMPHOCYTES # (AUTO) 1.6 /CMM (0.8-4.8); LYMPHOCYTES % (AUTO) 25.7 % (20.0-44.0); MEAN CORPUSCULAR HGB CONC 32 g/dl (31.0-36.0); MEAN CORPUSCULAR VOLUME 92 fL (80-96); MONOCYTES # (AUTO) 0.6 /CMM (0.1-1.30); MONOCYTES % (AUTO) 9.1 % (2.0-12.0); NEUTROPHILS # (AUTO) 3.8 /CMM (1.8-8.9); NEUTROPHILS % (AUTO) 61.5 % (43.0-81.0); PLATELET COUNT (AUTO) 110 /CMM (150-450); RED BLOOD CELL COUNT(AUTO) 4.87 MIL/uL (4.5-6.0); WHITE BLOOD COUNT (AUTO) 6.2 K/uL (4.3-11.0)
--- NOTE | 2020-08-31 22:34 | NUR ---
PATIENT CAME TO ER BED 13 C/O MIDSTERNAL CHEST PAIN RADIATING TO THE LEFT SIDE FOR 1x HOUR. PATIENT STATES THAT WHEN HE WAS HAVING THE CHEST PAIN EARLIER, HE ALSO "THREW UP A LITTLE". PATIENT IS AAOX4. AMBULATORY WITH A STEADY GAIT. CONNECTED TO THE MONITOR. BREATHING EVENLY AND UNLABORED ON ROOM AIR. NO C/O OF SOB.
[2020-08-31 22:38] LABS: CALCIUM, SERUM 9.8 mg/dL (8.5-10.1); CARBON DIOXIDE 27 mmol/L (21-32); CHLORIDE 102 mmol/L (98-107); CREATININE 1.3 mg/dL (0.6-1.3); GLUCOSE 90 mg/dL (74-106); POTASSIUM 3.6 mmol/L (3.5-5.1); SODIUM SERUM 141 mmol/L (136-145); UREA NITROGEN, BLOOD 18 mg/dL (7-18)
--- NOTE | 2020-08-31 22:38 | NUR ---
PT RESTING COMFORTABLY. VSS.
[2020-08-31 22:51] LABS: ALANINE AMINOTRANSFERASE 41 U/L (12-78); ALBUMIN 3.5 g/dL (3.4-5.0); ALKALINE PHOSPHATASE 87 U/L (46-116); ASPARTATE AMINOTRANSFERASE 28 U/L (15-37); B-TYPE NATRIURETIC PEPTIDE 51 PG/ML (0-125); BILIRUBIN,DIRECT 0.1 mg/dL (0.0-0.2); BILIRUBIN,TOTAL 0.1 mg/dL (0.2-1.0); TOTAL PROTEIN, SERUM 8.1 g/dL (6.4-8.2)
--- NOTE | 2020-08-31 23:09 | NUR ---
Patient discharged to home in stable condition. Written and verbal after care instructions given. Patient verbalizes understanding of instruction. Pt denies CP/ Ambulatory with steady gait. Denies being homeless. Refused to sign homeless discharge.
[2020-08-31 23:10] VITALS: BP 127/83
== END 2020-08-31 23:10 | disposition home or self-care (01) ==
LOC: ER 21:34
DX: R07.89 Other chest pain (principal); I10 Essential (primary) hypertension; K21.9 Gastro-esophageal reflux disease without esophagitis; E78.00 Pure hypercholesterolemia, unspecified; Z88.8 Allergy status to other drugs, medicaments and biological substances; Z79.899 Other long term (current) drug therapy
CPT/HCPCS: 36415; 71045-TC; 80048-TC; 80076-TC; 83880; 84484-TC; 85025-TC; 85730-TC

== ENCOUNTER 2020-09-29 06:03 | Emergency (ER) | payer MEDICARE, OTHER ==
[~2020-09-29] VITALS: Ht 180.3 cm; Wt 111.1 kg
--- NOTE | 2020-09-29 06:15 | NUR ---
URINE COLLECTED, CALLED LAB FOR CONCRETE BATCHER
--- NOTE | 2020-09-29 06:19 | NUR ---
PT BIBSELF C/O SUICIDAL IDEATION WITH PLAN TO OVERDOSE. PT AAOX4, CALM AND COOPERATIVE. VITAL SIGNS STABLE. RESPIRATIONS EVEN AND UNLABORED. SKIN WARM AND INTACT. AMBULATORY WITH NO ACUTE DISTRESS NOTED AT THIS TIME. PENDING MD VELA
--- NOTE | 2020-09-29 06:50 | NUR ---
COVID SWAB COLLECTED, CALLED LAB FOR BUCK PRESSER
[2020-09-29 06:57] LABS: BASOPHILS % (AUTO) 0.8 % (0.0-2.0); EOSINOPHILS % (AUTO) 1.4 % (0.0-6.0); HEMATOCRIT 42 % (39-51); HEMOGLOBIN 13.6 g/dL (13.5-17.5); LYMPHOCYTES # (AUTO) 1.3 /CMM (0.8-4.8); LYMPHOCYTES % (AUTO) 23.7 % (20.0-44.0); MEAN CORPUSCULAR HGB CONC 32 g/dl (31.0-36.0); MEAN CORPUSCULAR VOLUME 91 fL (80-96); MONOCYTES # (AUTO) 0.5 /CMM (0.1-1.30); MONOCYTES % (AUTO) 9.5 % (2.0-12.0); NEUTROPHILS # (AUTO) 3.5 /CMM (1.8-8.9); NEUTROPHILS % (AUTO) 64.6 % (43.0-81.0); PLATELET COUNT (AUTO) 211 /CMM (150-450); RED BLOOD CELL COUNT(AUTO) 4.64 MIL/uL (4.5-6.0); WHITE BLOOD COUNT (AUTO) 5.4 K/uL (4.3-11.0)
[2020-09-29 07:10] LABS: CALCIUM, SERUM 9.5 mg/dL (8.5-10.1); CARBON DIOXIDE 32 mmol/L (21-32); CHLORIDE 103 mmol/L (98-107); CREATININE 1.1 mg/dL (0.6-1.3); GLUCOSE 93 mg/dL (74-106); POTASSIUM 3.7 mmol/L (3.5-5.1); SODIUM SERUM 141 mmol/L (136-145); UREA NITROGEN, BLOOD 17 mg/dL (7-18)
[2020-09-29 07:17] LABS: ALANINE AMINOTRANSFERASE 44 U/L (12-78); ALBUMIN 3.5 g/dL (3.4-5.0); ALCOHOL, BLOOD < 3 mg/dL (0-0); ALKALINE PHOSPHATASE 86 U/L (46-116); ASPARTATE AMINOTRANSFERASE 29 U/L (15-37); BILIRUBIN,DIRECT 0.1 mg/dL (0.0-0.2); BILIRUBIN,TOTAL 0.3 mg/dL (0.2-1.0); TOTAL PROTEIN, SERUM 7.9 g/dL (6.4-8.2)
[2020-09-29 07:21] LABS: ACETAMINOPHEN 0 ug/ml (10-30)
[2020-09-29 07:34] LABS: BILIRUBIN,URINE NEGATIVE (NEGATIVE); COLOR,URINE YELLOW (YELLOW); LEUKOCYTE ESTERASE ,URINE NEGATIVE (NEGATIVE); NITRITE, URINE NEGATIVE (NEGATIVE); PH,URINE 6.5 (5.0-8.0); PROTEIN,URINE NEGATIVE (NEGATIVE); UGLUCOSE NEGATIVE (NEGATIVE); UROBILINOGEN,URINE 0.2 EU/dL (0.2)
--- NOTE | 2020-09-29 09:04 | NUR ---
SW faxed clinicals to [facility] without COVID result. SW to follow-up regarding this referral. SW remains available for all needs regarding this patient.
--- NOTE | 2020-09-29 11:33 | NUR ---
Senior Control Systems Engineer consult requested by ED RN Zheng. Patient is a 60-year-old male. Patient is alert and oriented x4. Patient reports current suicidal ideation to overdose on pills. Patient informed this SW that he has an active prescription of his medications however he has not taken them in a few days. Prior to this patient has been following up on medications from previous psychiatric admission but still remains suicidal. Patient has a diagnosis of Bipolar disorder. Patient reported a alcohol, Amphetamine and Cannabinoid use. Patient reports that he is living at home with his brother and receives $1000 in disability. Patient denies auditory and visual hallucination. Patient denies homicidal ideation. Patient was referred to [facility], pending COVID result. SW remains available for all needs regarding this patient.
--- NOTE | 2020-09-29 11:37 | NUR ---
[facility] ACCEPTING MD IS DEBI PT WILL GO TO UNIT 2 PLEASE CALL [phone]
--- NOTE | 2020-09-29 11:42 | NUR ---
CALLED [facility] ETA 60 MINS.
--- NOTE | 2020-09-29 12:01 | NUR ---
BRENT received a call from Isatu from [facility] [phone] with accepting information. Patient has been accepted in Unit 2 Room 205A under the care of Dr. Freed. Phone number for Nurse to Nurse report [phone] ext [phone]
[2020-09-29 12:45] VITALS: BP 143/97
--- NOTE | 2020-09-29 12:48 | NUR ---
REPORT GIVEN AT [facility]. PT TRANSPORTED IN STABLE CONDITION.
== END 2020-09-29 12:51 ==
LOC: ER 06:03
DX: R45.851 Suicidal ideations (principal); K21.9 Gastro-esophageal reflux disease without esophagitis; E78.00 Pure hypercholesterolemia, unspecified; I10 Essential (primary) hypertension; Z88.8 Allergy status to other drugs, medicaments and biological substances
CPT/HCPCS: 36415; 80048-TC; 80076-TC; 85025-TC; C9803; G0480

== ENCOUNTER 2021-01-06 14:16 | Inpatient (IN) | payer MEDICARE, OTHER ==
[~2021-01-06] VITALS: Ht 180.3 cm; Wt 113.4 kg
--- NOTE | 2021-01-06 14:16 | NUR ---
PT C/O DEPRESSION W/ SUICIDAL THOUGHTS X 1 WEEK. NO ACTIVE PLAN COUTURIERE. PT IS AAOX4, NOT IN RESPIRATORY DISTRESS, V/S STABLE, KEPT RESTED AND COMFORTABLE. WILL CONTINUE TO MONITOR.
--- NOTE | 2021-01-06 15:00 | NUR ---
URINE SPECIMEN COLLECTED AND SENT TO LAB.
--- NOTE | 2021-01-06 15:09 | NUR ---
ER PHLEB AT BEDSIDE FOR BLOOD DRAW.
[2021-01-06 15:23] LABS: BASOPHILS # (AUTO) 0.1 /CMM (0.0-0.2); BASOPHILS % (AUTO) 1.1 % (0.0-2.0); EOSINOPHILS % (AUTO) 1.5 % (0.0-6.0); HEMATOCRIT 39 % (39-51); HEMOGLOBIN 12.5 g/dL (13.5-17.5); LYMPHOCYTES # (AUTO) 1.7 /CMM (0.8-4.8); LYMPHOCYTES % (AUTO) 27.7 % (20.0-44.0); MEAN CORPUSCULAR HGB CONC 32 g/dl (31.0-36.0); MEAN CORPUSCULAR VOLUME 88 fL (80-96); MONOCYTES # (AUTO) 0.7 /CMM (0.1-1.30); MONOCYTES % (AUTO) 11.2 % (2.0-12.0); NEUTROPHILS # (AUTO) 3.6 /CMM (1.8-8.9); NEUTROPHILS % (AUTO) 58.5 % (43.0-81.0); PLATELET COUNT (AUTO) 221 /CMM (150-450); RED BLOOD CELL COUNT(AUTO) 4.38 MIL/uL (4.5-6.0); WHITE BLOOD COUNT (AUTO) 6.1 K/uL (4.3-11.0)
[2021-01-06 15:42] LABS: ALBUMIN 3.6 g/dL (3.4-5.0); BILIRUBIN,DIRECT 0.1 mg/dL (0.0-0.2); BILIRUBIN,TOTAL 0.2 mg/dL (0.2-1.0); CALCIUM, SERUM 9.1 mg/dL (8.5-10.1); CREATININE 1.5 mg/dL (0.6-1.3); POTASSIUM 3.6 mmol/L (3.5-5.1); TOTAL PROTEIN, SERUM 7.7 g/dL (6.4-8.2)
[2021-01-06 15:50] LABS: BILIRUBIN,URINE NEGATIVE (NEGATIVE); COLOR,URINE YELLOW (YELLOW); LEUKOCYTE ESTERASE ,URINE NEGATIVE (NEGATIVE); NITRITE, URINE NEGATIVE (NEGATIVE); PROTEIN,URINE NEGATIVE (NEGATIVE); UGLUCOSE NEGATIVE (NEGATIVE); UROBILINOGEN,URINE 0.2 EU/dL (0.2)
[2021-01-06] MEDS ORDERED: ATOR40TA PO (15:51)
[2021-01-06] MEDS ORDERED: BUPR-78 PO (15:51)
[2021-01-06] MEDS ORDERED: DIVA500T54 PO (15:51)
--- NOTE | 2021-01-06 18:36 | NUR ---
CALLED [facility] CLINICAL OFFICE TECHNICIAN FOR EVAL. ETA 1 HOUR.
--- NOTE | 2021-01-06 19:35 | NUR ---
CIERRAID SWABBED, SENT TO LAB.
--- NOTE | 2021-01-06 20:02 | NUR ---
LAB CALLED REGARDING NEGATIVE COVID RESULT.
--- NOTE | 2021-01-06 22:41 | NUR ---
CAM[facility] 216-B
--- NOTE | 2021-01-06 22:51 | NUR ---
REPORT GIVEN TO RN FOR [facility]O
[2021-01-06] MEDS ORDERED: MAG HYDROX/AL HYDROX/SIMETH 30 ML UDC PO PRN (23:30)
[2021-01-06] MEDS ORDERED: MAGNESIUM HYDROXIDE 30 ML UDC PO PRN (23:30)
[2021-01-06] MEDS ORDERED: BLOOD SUGAR DIAGNOSTIC 1 EACH STRIP IN ONE (23:30)
[2021-01-06] MEDS ORDERED: LORAZEPAM 1 MG TABLET PO PRN (23:30)
[2021-01-06] MEDS ORDERED: ACETAMINOPHEN 325 MG TABLET PO PRN (23:30)
[2021-01-07 01:11] VITALS: BP 150/90
--- NOTE | 2021-01-07 01:23 | NUR ---
GPS RN ADMITTING NOTES: ADMITTED A 60 Y/O MALE FROM ER, ORIGINALLY FROM HOME. PATIENT WAS ADMITTED ON A 5150 HOLD FOR DTS. HOLD WAS PLACED ON 01/06/21 @ 19:26. PER HOLD PATIENT PRESENTED HIMSELF TO THE ER AND REPORTED BEING DEPRESSED, FEELING SUICIDAL FOR 5 DAYS WITH PLAN TO OVERDOSE ON MEDICATION, AND NON COMPLIANCE WITH HIS MEDICATION. UPON FACE TO FACE EVALUATION PATIENT IS A/O X3, APPEARS DEPRESSED, FLAT AFFECT, COOPERATIVE, DENIES SI/VH/AH AT THIS TIME. DENIES ANY PAIN. PATIENT HAS POOR INSIGHT AND POOR JUDGEMENT. PATIENT REFUSED TO SIGNS ALL ADMISSION PAPER WORKS. PATIENT WANTS NON DISCLOSURE OF INFORMATION. REFUSED FLU & PNEUMONIA VACCINES. SKIN ASSESSMENT DONE, SKIN INTACT/CLEAR. PATIENT BELONGINGS INVENTORIED AND CONTRABANDS PLACED IN PATIENT ROOM LOCKER. PATIENT RIGHTS DISCUSSED AND PATIENT HAND BOOKLET AND PRESCRIPTION GUIDE GIVEN TO PATIENT. PATIENT ORIENTED TO UNIT POLICIES, NURSING STATION, DOCTORS AND STAFF. PATIENT IS UNDER THE PSYCHIATRIC CARE OF DR. MESSER AND [facility]ARE OF [facility]. BOTH HAVE BEEN INFORMED OF PATIENT ADMISSION AND ORDERS CARRIED OUT. PATIENT IS CURRENTLY LAYING ON BED, BED IS IN LOWEST POSITION AND LOCKED WITH SIDE RAILS UP X2. PATIENT HAS NO NEEDS AT THIS TIME. WILL CONTINUE TO MONITOR Q15 FOR SAFETY, MOOD AND BEHAVIOR.
[2021-01-07 08:00] VITALS: BP 157/83
[2021-01-07] MEDS ORDERED: IBUPROFEN 600 MG TABLET PO PRN (10:30)
--- NOTE | 2021-01-07 10:34 | NUR ---
Pt. refused for labs at this time.
[2021-01-07] MEDS: DIVALPROEX SODIUM 500 MG TABLET.DR PO SCH ×2 (12:25→21:46)
--- NOTE | 2021-01-07 14:33 | NUR ---
Initial Discharge Plan: Pt currently resides with his brother at a home located at [address] [place], [place] [id number]; [phone]. Per pt, he would like return to his brothers house at the time of discharge. SW will work with the pt and the MD regarding appropriate discharge planning. SW will form a safe and proper discharge.
[2021-01-07 16:00] VITALS: BP 149/88
[2021-01-07] MEDS: ATORVASTATIN 40 MG TABLET PO SCH (21:46)
[2021-01-07] MEDS: ZOLPIDEM TARTRATE 5 MG TABLET PO PRN (21:46)
[2021-01-08 08:00] VITALS: BP 137/86
[2021-01-08] MEDS: DIVALPROEX SODIUM 500 MG TABLET.DR PO SCH ×2 (08:20→21:05)
[2021-01-08] MEDS: BUPROPION XL 150 MG TAB.ER.24 PO SCH (08:20)
--- NOTE | 2021-01-08 13:05 | NUR ---
Substance Abuse Intervention: SW conducted a substance abuse intervention with the pt regarding his cannabis, cocaine, and alcohol use.
--- NOTE | 2021-01-08 19:30 | NUR ---
GPS RN NOTE, RECEIVED PATIENT AWAKE AND IN BED, NO S/S OR COMPLAINTS OF PAIN AT THIS TIME. PATIENT IS DISPLAYING NO S/S OF APPARENT DISTRESS AT THIS TIME. PATIENT BREATHING IS UNLABORED WITH EQUAL RISE AND FALL OF THE CHEST. PATIENT IS ALERT AND ORIENTED X 3 ON ROOM AIR WITH A SPO2 98%. PATIENT IS COMPLIANT WITH MEDICATIONS, CALM, POLITE, AND COOPERATIVE. PATIENT DENIES SUICIDAL AND HOMICIDAL IDEATIONS AT THIS TIME. PATIENT ASSISTED WITH TURNING AND REPOSITIONING Q2HR AND PRN FOR COMFORT AND CIRCULATION. PATIENT HAS NO NEEDS AT THIS TIME. PATIENT EDUCATED ON THE USE OF THE CALL SAHU. PATIENT BED SIDE RAILS UP X 2 FOR SAFETY. PATIENT BED IS LOCKED, LOW, WITH BED ALARM ON. WILL CONTINUE TO MONITOR THIS PATIENT Q15 MINUTES WITH THE HELP OF STAFF TO MAINTAIN SAFETY.
[2021-01-08 20:22] VITALS: BP 139/83
[2021-01-08] MEDS: ZOLPIDEM TARTRATE 5 MG TABLET PO PRN (20:57)
--- NOTE | 2021-01-08 20:57 | NUR ---
GPS RN NOTE, PATIENT HAS A COMPLAINT OF NOT BEING ABLE TO SLEEP AND IS REQUESTING AMBIEN AT THIS TIME. PATIENT VITAL SIGNS ARE STABLE. GAVE AMBIEN 5MG PO HS ORDERED. WILL REASSESS FOR INSOMNIA AND I WILL CONTINUE TO MONITOR THIS PATIENT.
[2021-01-08] MEDS: ATORVASTATIN 40 MG TABLET PO SCH (21:00)
[2021-01-08 21:29] LABS: BILIRUBIN,URINE NEGATIVE (NEGATIVE); COLOR,URINE YELLOW (YELLOW); LEUKOCYTE ESTERASE ,URINE NEGATIVE (NEGATIVE); NITRITE, URINE NEGATIVE (NEGATIVE); PH,URINE 5.5 (5.0-8.0); PROTEIN,URINE NEGATIVE (NEGATIVE); UGLUCOSE NEGATIVE (NEGATIVE); UROBILINOGEN,URINE 0.2 EU/dL (0.2)
[2021-01-08 21:30] LABS: EOSINOPHIL,URINE None Seen
[2021-01-08 21:32] LABS: URINE TOTAL PROTEIN 6.9 mg/dL (0-11.9)
[2021-01-09 08:00] VITALS: BP 138/93
[2021-01-09] MEDS: DIVALPROEX SODIUM 500 MG TABLET.DR PO SCH ×2 (08:29→21:07)
[2021-01-09] MEDS: BUPROPION XL 150 MG TAB.ER.24 PO SCH (08:29)
[2021-01-09] MEDS: LORAZEPAM 1 MG TABLET PO PRN (13:48)
--- NOTE | 2021-01-09 13:50 | NUR ---
GPS/RN-NOTES PATIENT STATED" I NEED ANXIETY MEDICATION" ATIVAN 2MG P.O GIVEN PRN ORDER. WILL CONT. MONITORING FOR SAFETY AND BEHAVIOR.
--- NOTE | 2021-01-09 14:50 | NUR ---
GPS/RN-NOTES PATIENT LYING IN BED AWAKE,ALERT CALM,NO ACUTE DISTRESS NOTED.
[2021-01-09 16:00] VITALS: BP 139/81
--- NOTE | 2021-01-09 18:56 | NUR ---
GPS/RN-NOTES PATIENT REFUSED LAB DRAW TODAY DR. HOOK MADE AWARE.
[2021-01-09 20:10] VITALS: BP 122/70
[2021-01-09] MEDS: ZOLPIDEM TARTRATE 5 MG TABLET PO PRN (21:07)
[2021-01-09] MEDS: ATORVASTATIN 40 MG TABLET PO SCH (21:07)
[2021-01-10 08:00] VITALS: BP 122/86
[2021-01-10] MEDS: DIVALPROEX SODIUM 500 MG TABLET.DR PO SCH ×2 (08:56→20:46)
[2021-01-10] MEDS: BUPROPION XL 150 MG TAB.ER.24 PO SCH (08:56)
[2021-01-10] MEDS: LORAZEPAM 1 MG TABLET PO PRN (11:12)
--- NOTE | 2021-01-10 11:13 | NUR ---
RN NOTES: ANXIETY PT. C/O FEELING ANXIOUS ATIVAN 1 MG PO PRN GIVEN PER PT. REQUEST , WILL CONTINUE TO MONITOR. Addendum: 01/10/21 at 1259 by DAVID NAPOLES RN RN NOTES: ANXIETY PT. C/O FEELING ANXIOUS ATIVAN 2 MG PO PRN GIVEN PER PT. REQUEST , WILL CONTINUE TO MONITOR.
[2021-01-10 16:00] VITALS: BP 135/94
[2021-01-10 19:43] VITALS: BP 140/50
[2021-01-10] MEDS: ATORVASTATIN 40 MG TABLET PO SCH (21:02)
[2021-01-10] MEDS: ZOLPIDEM TARTRATE 5 MG TABLET PO PRN (21:55)
--- NOTE | 2021-01-10 21:55 | NUR ---
GPS-RN NOTES: INSOMNIA PATIENT C/O INABILITY TO SLEEP. PRN AMBIEN 5MG PO GIVEN. WILL CONTINUE TO MONITOR.
[2021-01-11 08:00] VITALS: BP 151/97
[2021-01-11] MEDS: DIVALPROEX SODIUM 500 MG TABLET.DR PO SCH ×2 (08:34→20:18)
[2021-01-11] MEDS: BUPROPION XL 150 MG TAB.ER.24 PO SCH (08:35)
--- NOTE | 2021-01-11 14:17 | NUR ---
RN NOTE- C/O DYSPEPSIA . MAALOX 30CC GIVEN.
[2021-01-11 15:51] LABS: CALCIUM, SERUM 8.8 mg/dL (8.5-10.1); CREATININE 1.1 mg/dL (0.6-1.3); POTASSIUM 4.1 mmol/L (3.5-5.1)
[2021-01-11 16:00] VITALS: BP 141/70
[2021-01-11 20:10] VITALS: BP 140/92
[2021-01-11] MEDS: LORAZEPAM 1 MG TABLET PO PRN (20:17)
--- NOTE | 2021-01-11 21:17 | NUR ---
RN note: patient c/o feeling anxious.Ativan 2 mg PO was given w/ good effect.
[2021-01-11] MEDS: ATORVASTATIN 40 MG TABLET PO SCH (21:46)
[2021-01-12 08:00] VITALS: BP 142/88
[2021-01-12] MEDS: DIVALPROEX SODIUM 500 MG TABLET.DR PO SCH ×2 (08:18→20:24)
[2021-01-12] MEDS: BUPROPION XL 150 MG TAB.ER.24 PO SCH (08:18)
[2021-01-12] MEDS: LORAZEPAM 1 MG TABLET PO PRN (14:13)
--- NOTE | 2021-01-12 14:13 | NUR ---
RN NOTE :PATIENT C/O anxiety ,MEDICATED WITH ATIVAN 2mg WILL CONTINUE TO MONITOR .
[2021-01-12 16:00] VITALS: BP 127/87
[2021-01-12 20:00] VITALS: BP 138/78
[2021-01-12] MEDS: ATORVASTATIN 40 MG TABLET PO SCH (21:07)
[2021-01-12] MEDS: ZOLPIDEM TARTRATE 5 MG TABLET PO PRN (21:07)
--- NOTE | 2021-01-12 21:09 | NUR ---
GPS RN NOTES: PT. REQUESTED SLEEP MED D/T INSOMNIA. AMBIEN 5MG/1TAB GIVEN PO PRN ORDERED AT 2106. WILL CONTINUE TO MONITOR.
--- NOTE | 2021-01-13 06:37 | NUR ---
GPS RN CLOSING NOTES: PATIENT IS AWAKE A/O X3. LAYING COMFORTABLY ON BED. PATIENT SLEPT 6HRS THIS SHIFT. MED COMPLIANT THIS SHIFT. NO S/S OF DISTRESS. RESPIRATION EVEN AND UNLABORED WITH EQUAL RISE AND FALL OF THE CHEST ON ROOM AIR. ALL PATIENT CARE NEEDS HAVE BEEN MET ANTICIPATED. PATIENT IS SCHEDULED TO DC HOME TODAY AT 11AM. WILL CONTINUE TO MONITOR FOR SAFETY, MOOD AND BEHAVIOR AND ENDORSE TO AM SHIFT.
[2021-01-13 08:00] VITALS: BP 144/88
[2021-01-13] MEDS: BUPROPION XL 150 MG TAB.ER.24 PO SCH (08:36)
[2021-01-13] MEDS: DIVALPROEX SODIUM 500 MG TABLET.DR PO SCH (08:36)
--- NOTE | 2021-01-13 10:06 | NUR ---
Discharge Note: Pt will be discharged to his brothers home located at [address], [place] at 11AM. Pt will be discharged and will take the bus to the location. Upon discharge, the pt denies both suicidal and homicidal ideation as well as auditory and visual hallucinations. Pt was provided with substance abuse referrals prior to discharge and are listed below. Pt appears to be alert and oriented x4 (time, place, self and situation). Pt appears to be in a euthymic mood and presents with a calm affect. Pt was referred to under the care of [facility] for psychiatric services located at [address] [place] [address]; ; and a fax of records was sent to: . Pt has an appointment on 01/20/21 at 12pm. Pt was also referred to [facility] located at [address], [place]; for health services. SW provided the pt with substance abuse referrals at the time of discharge. The multidisciplinary exit care form was done, printed, signed, and given to the patient.
--- NOTE | 2021-01-13 10:57 | NUR ---
RN NOTE- PT DC AT THIS TIME AMBULATORY CALM DENIES SI HI AH VH. PT ALERT ORIENTED PERSON PLACE TIME PURPOSE. VS STABLE, AFTERCARE AND ORDERS DISCUSSED W PT AND UNDERSTANDING STATED. PT SKIN INTACT. REFUSES VACCINES. ID WRISTBAND REMOVED. VALUABLES RETURNED AND SIGNED FOR. ESCORTED OFF UNIT BY STAFF.
== END 2021-01-13 10:55 | disposition home or self-care (01) | DRG 885 ==
LOC: ER 14:44 → GPS 22:46
PROVIDERS: ADMIT Psychiatry & Neurology Psychiatry
DX: F31.5 Bipolar disorder, current episode depressed, severe, with psychotic features (principal); N18.9 Chronic kidney disease, unspecified; N17.0 Acute kidney failure with tubular necrosis; I13.0 Hypertensive heart and chronic kidney disease with heart failure and stage 1 through stage 4 chronic kidney disease, or unspecified chronic kidney disease; E87.0 Hyperosmolality and hypernatremia; R45.851 Suicidal ideations; I10 Essential (primary) hypertension; E78.5 Hyperlipidemia, unspecified; F17.200 Nicotine dependence, unspecified, uncomplicated; F14.10 Cocaine abuse, uncomplicated; F12.10 Cannabis abuse, uncomplicated; F10.10 Alcohol abuse, uncomplicated; Y90.6 Blood alcohol level of 120-199 mg/100 ml; I50.9 Heart failure, unspecified; K21.9 Gastro-esophageal reflux disease without esophagitis; Z79.899 Other long term (current) drug therapy; E11.22 Type 2 diabetes mellitus with diabetic chronic kidney disease; E78.00 Pure hypercholesterolemia, unspecified; E86.1 Hypovolemia; Z88.8 Allergy status to other drugs, medicaments and biological substances; Z83.3 Family history of diabetes mellitus; F39 Unspecified mood [affective] disorder
CPT/HCPCS: 36415; 80048-TC; 80076-TC; 82570-TC; 82962-TC; 84155-TC; 84300-TC; 85025-TC; 87081-TC; C9803; G0480

== ENCOUNTER 2021-01-20 14:49 | Inpatient (IN) | payer MEDICARE, MEDICAID ==
[~2021-01-20] VITALS: Ht 180.3 cm; Wt 111.1 kg
[~2021-01-20 14:49] MED LIST changes: -ATOR10TA PO; +ATOR40TA PO; +BUPR-78 PO; +DIVA500T54 PO; -METO25TA20 PO
--- NOTE | 2021-01-20 15:05 | NUR ---
The patient is bibs for c/o sudden onset midsternal chest pain started 30 mins pilot captain. The patient rates pain 5/10. In room air and denies SOB. Respiration regular and unlabored. The patient is attached on a monitor. Warm blanket provided for comfort. Will continue to monitor the patient.
[2021-01-20] MEDS ORDERED: ASPIRIN 325 MG TABLET ONE (15:10)
[2021-01-20] MEDS ORDERED: NITROGLYCERIN 0.4 MG/TAB BOTTLE ONE (15:10)
--- NOTE | 2021-01-20 15:22 | NUR ---
Gave 1 tablet of nitro, patient's blood pressure on repeat is 92/62. Patient's chest pain improved to ps of 4/10.
[2021-01-20] MEDS ORDERED: NITROGLYCERIN 0.4 MG/TAB BOTTLE SL ONE (15:30)
[2021-01-20] MEDS ORDERED: ASPIRIN 325 MG TABLET PO ONE (15:30)
[2021-01-20 15:34] LABS: BASOPHILS # (AUTO) 0.1 /CMM (0.0-0.2); BASOPHILS % (AUTO) 1.6 % (0.0-2.0); EOSINOPHILS % (AUTO) 0.6 % (0.0-6.0); HEMATOCRIT 39 % (39-51); HEMOGLOBIN 12.7 g/dL (13.5-17.5); LYMPHOCYTES # (AUTO) 1.5 /CMM (0.8-4.8); LYMPHOCYTES % (AUTO) 19.3 % (20.0-44.0); MEAN CORPUSCULAR HGB CONC 33 g/dl (31.0-36.0); MEAN CORPUSCULAR VOLUME 88 fL (80-96); MONOCYTES # (AUTO) 0.7 /CMM (0.1-1.30); MONOCYTES % (AUTO) 9.2 % (2.0-12.0); NEUTROPHILS # (AUTO) 5.3 /CMM (1.8-8.9); NEUTROPHILS % (AUTO) 69.3 % (43.0-81.0); PLATELET COUNT (AUTO) 233 /CMM (150-450); RED BLOOD CELL COUNT(AUTO) 4.41 MIL/uL (4.5-6.0); WHITE BLOOD COUNT (AUTO) 7.7 K/uL (4.3-11.0)
[2021-01-20 15:45] LABS: CALCIUM, SERUM 8.9 mg/dL (8.5-10.1); CARBON DIOXIDE 20 mmol/L (21-32); CHLORIDE 104 mmol/L (98-107); CREATININE 1.6 mg/dL (0.6-1.3); GLUCOSE 92 mg/dL (74-106); POTASSIUM 3.6 mmol/L (3.5-5.1); SODIUM SERUM 139 mmol/L (136-145); UREA NITROGEN, BLOOD 24 mg/dL (7-18)
[2021-01-20] MEDS ORDERED: AMLO-212 PO (16:49)
--- NOTE | 2021-01-20 16:58 | NUR ---
PATIENT IS RESTING, NO DISTRESS NOTED.
[2021-01-20] MEDS ORDERED: MORPHINE SULFATE INJ 4 MG/ML DISP.SYRIN ONE (16:59)
[2021-01-20] MEDS ORDERED: ONDANSETRON HCL/PF 4 MG/2 ML VIAL ONE (16:59)
[2021-01-20] MEDS ORDERED: ONDANSETRON HCL/PF 4 MG/2 ML VIAL IV ONE (17:00)
[2021-01-20] MEDS ORDERED: MORPHINE SULFATE INJ 10 MG/ML DISP.SYRIN IV ONE (17:00)
[2021-01-20] MEDS ORDERED: MORPHINE SULFATE INJ 2 MG/ML DISP.SYRIN IV ONE (17:00)
[2021-01-20] MEDS ORDERED: HYDROCODONE/APAP 5/325MG TABLET ONE (17:05)
--- NOTE | 2021-01-20 17:19 | NUR ---
[facility] CALLED FIELD CARE MANAGER PAGED.
[2021-01-20] MEDS ORDERED: HYDROCODONE/APAP 5/325MG TABLET PO ONE (17:30)
--- NOTE | 2021-01-20 17:37 | NUR ---
BED 312-1
--- NOTE | 2021-01-20 17:41 | NUR ---
REPORT GIVEN TO SIMONE SIGALA
[2021-01-20] MEDS ORDERED: MAGNESIUM HYDROXIDE 30 ML UDC PO PRN (18:30)
[2021-01-20] MEDS ORDERED: ACETAMINOPHEN 325 MG TABLET PO PRN (18:30)
[2021-01-20] MEDS ORDERED: IV NS 0.9% 1,000 ML IV PRN (18:30)
[2021-01-20] MEDS ORDERED: MORPHINE SULFATE INJ 2 MG/ML DISP.SYRIN IV PRN (18:30)
[2021-01-20] MEDS ORDERED: HYDROCODONE/APAP 5/325MG TABLET PO PRN (18:30)
[2021-01-20] MEDS ORDERED: ZOLPIDEM TARTRATE 5 MG TABLET PO PRN (18:30)
[2021-01-20] MEDS ORDERED: Z GUARD REMEDY 2 OZ OINT TP PRN (18:30)
[2021-01-20] MEDS ORDERED: ONDANSETRON HCL/PF 4 MG/2 ML VIAL IVP PRN (18:30)
--- NOTE | 2021-01-20 18:45 | NUR ---
DENTURE WAXER NOTE RECEIVED PATIENT VIA [facility] AT 1845. PATIENT ARRIVE IN STABLE CONDITION. PATIENT IS A/O X4 ABLE TO MAKE NEEDS KNOWN. PATIENT IS BREATHING EVENLY AND UNLABORED ON ROOM AIR. PATIENT IS AMBULATORY. PATIENT HAS IV ACCESS ON L HAND #20 GAUGE. SOCIAL WORK MANAGER STARTED ECHOCARDIOGRAM. PATIENT WAS ORIENTED TO THE ROOM. SAFETY MEASURES IN PLACE. BED LOW LOCKED AND CALL LIGHT WITHIN REACH. WILL CONTINUE TO MONITOR
--- NOTE | 2021-01-20 18:47 | NUR ---
PATIENT TRANSFERRED TO ROOM 312-1 VIA ACLS PROTOCOL. NO DISTRESS.
[2021-01-20 18:54] LABS: IRON, SERUM 57 ug/dl (50-175); TOTAL IRON BINDING CAPACITY 374 ug/dl (250-450)
[2021-01-20 19:08] LABS: FERRITIN 49 ng/mL (8-388)
--- NOTE | 2021-01-20 19:30 | NUR ---
ADMISSION NOTE PATIENT ARRIVED AT 184. REPORT RECIEVED FROM DEVIN SIGALA AND TANMAY. PATIENT ADMITTED FOR CHEST PAIN TO [facility] TO 312 BED 2 FOR CHEST PAIN. PATIENT SEEN IN NO APPARENT DISTRESS. REPORTS SUBSTERNAL CHESTPAIN NON RADIATING AT 10/28. PT AMBULATORY WITH STEADY GAIT. NEW ORDERS RECIEVED. PT ORIENTED TO ROOM. REVIEWED POC. WILL CONT TO MONITOR. Addendum: 01/21/21 at 0006 by BILLIE DUMONT RN [address] PT IS ST WITH OCCASIONAL PAC'S/PVCS WILL CONT TO MONITOR.
[2021-01-20 20:00] VITALS: BP 147/87
[2021-01-20] MEDS ORDERED: ENOXAPARIN SODIUM 40 MG/0.4 ML DISP.SYRIN SQ SCH (21:00)
[2021-01-20] MEDS ORDERED: ATORVASTATIN 40 MG TABLET PO SCH (22:00)
[2021-01-20] MEDS ORDERED: CALCIUM CARBONATE 500 MG TAB.CHEW PO PRN (22:00)
[2021-01-21] VITALS: BP 130/85
[2021-01-21 03:12] LABS: BASOPHILS # (AUTO) 0.1 /CMM (0.0-0.2); BASOPHILS % (AUTO) 1.8 % (0.0-2.0); EOSINOPHILS % (AUTO) 1.5 % (0.0-6.0); HEMATOCRIT 38 % (39-51); HEMOGLOBIN 12.5 g/dL (13.5-17.5); LYMPHOCYTES # (AUTO) 1.2 /CMM (0.8-4.8); LYMPHOCYTES % (AUTO) 20.9 % (20.0-44.0); MEAN CORPUSCULAR HGB CONC 33 g/dl (31.0-36.0); MEAN CORPUSCULAR VOLUME 87 fL (80-96); MONOCYTES # (AUTO) 0.7 /CMM (0.1-1.30); MONOCYTES % (AUTO) 11.8 % (2.0-12.0); NEUTROPHILS # (AUTO) 3.8 /CMM (1.8-8.9); PLATELET COUNT (AUTO) 233 /CMM (150-450); RED BLOOD CELL COUNT(AUTO) 4.39 MIL/uL (4.5-6.0); WHITE BLOOD COUNT (AUTO) 5.9 K/uL (4.3-11.0)
[2021-01-21 03:24] LABS: CALCIUM, SERUM 8.5 mg/dL (8.5-10.1); CREATININE 1.2 mg/dL (0.6-1.3); MAGNESIUM 2.3 mg/dL (1.8-2.4); PHOSPHORUS 3.1 mg/dL (2.5-4.9); POTASSIUM 3.8 mmol/L (3.5-5.1)
[2021-01-21 04:00] VITALS: BP 134/88
--- NOTE | 2021-01-21 06:43 | NUR ---
rn pm closing note. pt in his room still on tele reading sr with pvc, pac. patient reports cp to midsternum just has minor pressure rated at 1/10. pt in no apprent distress. denies sob and pain.
[2021-01-21 08:00] VITALS: BP 144/94
--- NOTE | 2021-01-21 08:00 | NUR ---
ms rn received on bed, awake,alert,oriented x4,not in any form of distress, respirations even and unlabored,no sob noted,lungs are clear,abdomen soft,positve bowel sounds,denies pain at this time, all needs attended.
[2021-01-21] MEDS ORDERED: PANTOPRAZOLE 40 MG TABLET.DR PO SCH (09:00)
[2021-01-21] MEDS ORDERED: ASPIRIN 81 MG TAB.CHEW PO SCH (09:00)
--- NOTE | 2021-01-21 09:06 | NUR ---
PATIENT FOR CT ANGIOGRAPHY WITH 3D IMAGE ORDERED BY . SECURED CONSENT FROM PATIENT FOR PROCEDURE AND ATTACHED TO CHART.
[2021-01-21] MEDS ORDERED: ASPI-1169 PO (09:33)
--- NOTE | 2021-01-21 09:37 | NUR ---
RESIDENT SEEN BY DR. AQUINO WITH NO NEW ORDER AT THIS TIME. PATIENT STILL FOR CT ANGIO WITH 3D IMAGE.
[2021-01-21] MEDS ORDERED: IOHEXOL-350 100 ML VIAL IV ONE (11:36)
[2021-01-21] MEDS ORDERED: IV NS 0.9% 250 ML IV ONE (11:37)
[2021-01-21] MEDS: METOPROLOL TARTRATE INJ 5 MG/5 ML AMPUL IVP PRN ×2 (11:40→11:45)
[2021-01-21 11:46] VITALS: BP 129/78
[2021-01-21] MEDS ORDERED: METOPROLOL TARTRATE INJ 5 MG/5 ML AMPUL ONE (11:47)
--- NOTE | 2021-01-21 11:53 | NUR ---
Report given to ZAKIYA Paulino for BETO
[2021-01-21] MEDS ORDERED: NITROGLYCERIN 0.4 MG/TAB BOTTLE SL ONE (12:00)
--- NOTE | 2021-01-21 12:10 | NUR ---
PATIENT CAME BACK FROM PROCEDURE WITH NO SIGNS AND SYMPTOMS OF DISTRESS. NO SIGNS AND SYMPTOMS OF BLEEDING NOTED AT THIS TIME. COMFORT MEASURES PROVIDED. WILL CONTINUE TO MONITOR PATIENT.
[2021-01-21] MEDS ORDERED: METOPROLOL TARTRATE INJ 5 MG/5 ML AMPUL IVP PRN (13:28)
--- NOTE | 2021-01-21 14:20 | NUR ---
SS Consult received for Drug Rehabs & outpatient Tx. SW to follow up at a later time .
--- NOTE | 2021-01-21 15:30 | NUR ---
PATIENT FOR DISCHARGE ORDERED. DISCHARGE INSTRUCTIONS GIVEN AND MATERIALS RECEIVED BY PATIENT. PRESCRIPTION ATTACHED TO DISCHARGE PACKET. PATIENT VERBALIZED UNDERSTANDING AND APPRECIATION. IV ACCESS REMOVED AND COVERED WITH DRY DRESSING. IN STABLE CONDITION. PATIENT DISCHARGED ORDERED.
== END 2021-01-21 16:00 | disposition home or self-care (01) | DRG 917 ==
LOC: ER 14:53 → TELE 18:00 → MED 01-21 08:36
PROVIDERS: ADMIT Nurse Practitioner Acute Care; ATTEND Nurse Practitioner Acute Care
DX: T43.621A Poisoning by amphetamines, accidental (unintentional), initial encounter (principal); N17.0 Acute kidney failure with tubular necrosis; I42.7 Cardiomyopathy due to drug and external agent; Y92.009 Unspecified place in unspecified non-institutional (private) residence as the place of occurrence of the external cause; K21.9 Gastro-esophageal reflux disease without esophagitis; E78.00 Pure hypercholesterolemia, unspecified; Z88.8 Allergy status to other drugs, medicaments and biological substances; E11.9 Type 2 diabetes mellitus without complications; F15.10 Other stimulant abuse, uncomplicated; F14.10 Cocaine abuse, uncomplicated; E78.5 Hyperlipidemia, unspecified; I25.10 Atherosclerotic heart disease of native coronary artery without angina pectoris; Z79.899 Other long term (current) drug therapy; D64.9 Anemia, unspecified; I11.0 Hypertensive heart disease with heart failure; I50.9 Heart failure, unspecified; F31.9 Bipolar disorder, unspecified; F17.200 Nicotine dependence, unspecified, uncomplicated; Z83.3 Family history of diabetes mellitus; R07.9 Chest pain, unspecified
CPT/HCPCS: 36415; 71045-TC; 75574; 80048-TC; 80061-TC; 82728-TC; 83540-TC; 83735-TC; 84100-TC; 84484-TC; 85025-TC; 87081-TC; 93307-TC; G0378; J1650; J2270; J2405; J3490; J7030; J7050; Q9967

== ENCOUNTER 2021-02-13 10:30 | Inpatient (IN) | payer MEDICARE, OTHER ==
[~2021-02-13] VITALS: Ht 180.3 cm; Wt 113.1 kg
[~2021-02-13 10:30] MED LIST changes: +ASPI-1169 PO; -BUPR-78 PO; -DIVA500T54 PO
--- NOTE | 2021-02-13 10:39 | NUR ---
TRINITY PELLETIER AT BEDSIDE FOR EKG.
--- NOTE | 2021-02-13 10:40 | NUR ---
THE PATIENT IS BIBS FOR C/O L SIDED CHEST PAIN, SHARP ONSET 45 MINS AGO. IN ROOM AIR AND DENIES SOB. RESPIRATION REGULAR AND UNLABORED. ATTACHED TO THE MONITOR. WARM BLANKET PROVIDED FOR COMFORT. WILL CONTINUE TO MONITOR THE PATIENT.
[2021-02-13] MEDS ORDERED: LORAZEPAM INJ 2 MG/ML VIAL IV ONE (11:00)
[2021-02-13] MEDS ORDERED: LORAZEPAM INJ 2 MG/ML VIAL ONE (11:11)
[2021-02-13 11:15] LABS: BASOPHILS % (AUTO) 0.4 % (0.0-2.0); EOSINOPHILS % (AUTO) 0.1 % (0.0-6.0); HEMATOCRIT 41 % (39-51); HEMOGLOBIN 13.1 g/dL (13.5-17.5); LYMPHOCYTES % (AUTO) 12.7 % (20.0-44.0); MEAN CORPUSCULAR HGB CONC 32 g/dl (31.0-36.0); MEAN CORPUSCULAR VOLUME 87 fL (80-96); MONOCYTES # (AUTO) 0.8 /CMM (0.1-1.30); NEUTROPHILS # (AUTO) 6.2 /CMM (1.8-8.9); NEUTROPHILS % (AUTO) 76.8 % (43.0-81.0); PLATELET COUNT (AUTO) 247 /CMM (150-450); RED BLOOD CELL COUNT(AUTO) 4.65 MIL/uL (4.5-6.0); WHITE BLOOD COUNT (AUTO) 8.1 K/uL (4.3-11.0)
[2021-02-13 11:50] LABS: CALCIUM, SERUM 9.3 mg/dL (8.5-10.1); CREATININE 1.3 mg/dL (0.6-1.3); POTASSIUM 3.9 mmol/L (3.5-5.1)
[2021-02-13] MEDS ORDERED: ASPIRIN 81 MG TAB.CHEW PO ONE (12:30)
[2021-02-13] MEDS ORDERED: ASPIRIN 81 MG TAB.CHEW ONE (12:35)
--- NOTE | 2021-02-13 12:42 | NUR ---
MEDICATED PER ERMD ORDER, PT AARON WELL. PT LYING, WATCHING TV C/O MID CP 12/26 & AARON WELL. DENIES SOB, DIZZINESS, N/V, ARM/JAW PAIN AT THIS TIME. ON TELE, ST. WILL CONT TO MONITOR.
--- NOTE | 2021-02-13 14:27 | NUR ---
PT ASLEEP, EASILY AWAKEN BY VERBAL STIMULI, NAD NOTED AT THIS TIME. WILL CONT TO MONITOR.
--- NOTE | 2021-02-13 16:30 | NUR ---
PT WATCHING TV, CP STS 12/26, NON RADIATING. RR EVEN & UNLABORED. DENIES SOB, DIZZINESS, N/V, WEAKNESS AT THIS TIME. ON TELE, ST & WILL CONT TO MONITOR.
--- NOTE | 2021-02-13 17:15 | NUR ---
COVID NEGATIVE PER LAB
--- NOTE | 2021-02-13 17:48 | NUR ---
GOT BED 322-1
[2021-02-13] MEDS ORDERED: Z GUARD REMEDY 2 OZ OINT TP PRN (19:00)
[2021-02-13] MEDS ORDERED: HYDROCODONE/APAP 5/325MG TABLET PO PRN (19:00)
[2021-02-13] MEDS ORDERED: MAG HYDROX/AL HYDROX/SIMETH 30 ML UDC PO PRN (19:00)
[2021-02-13] MEDS ORDERED: ONDANSETRON HCL/PF 4 MG/2 ML VIAL IVP PRN (19:00)
[2021-02-13] MEDS ORDERED: MAGNESIUM HYDROXIDE 30 ML UDC PO PRN (19:00)
[2021-02-13] MEDS ORDERED: ACETAMINOPHEN 325 MG TABLET PO PRN (19:00)
--- NOTE | 2021-02-13 19:30 | NUR ---
Report given to sunil SIGALA for continuity of care on tele unit
--- NOTE | 2021-02-13 20:00 | NUR ---
TUBE LANCER ADMITTING NOTE PATIENT ALERT AND ORIENTED X 4, PATIENT ABLE TO MAKE NEEDS KNOWN. NO COMPLAINTS OF CHEST PAIN AT THIS TIME. PATIENT STABLE ON ROOM AIR, NO S/S OF DISTRESS OR SHORTNESS OF BREATH NOTED. PATIENT ON TELE MONITORING, CURRENTLY SINUS TACHY, HR 116. ORIENTED PATIENT TO ROOM AND EXPLAINED HOW TO USE CALL LIGHT. PATIENT IS AMBULATORY AND STEADY. SAFETY MEASURES IN PLACE, CALL LIGHT WITHIN REACH AND BED LOCKED IN LOWEST POSITION, SIDE RAILS UP X 2. WILL CONTINUE TO MONITOR. WILL CONTINUE PLAN OF CARE
[2021-02-13 20:12] VITALS: BP 119/77
[2021-02-13] MEDS ORDERED: ENOXAPARIN SODIUM 40 MG/0.4 ML DISP.SYRIN SQ SCH (21:00)
[2021-02-13] MEDS ORDERED: ZOLPIDEM TARTRATE 5 MG TABLET PO PRN (21:00)
[2021-02-13] MEDS ORDERED: ATORVASTATIN 40 MG TABLET PO SCH (22:00)
[2021-02-14 00:16] VITALS: BP 130/80
[2021-02-14 04:42] VITALS: BP 132/88
--- NOTE | 2021-02-14 05:50 | NUR ---
WORKFORCE MANAGEMENT MANAGER NOTES PATIENT REFUSED AM LAB DRAW. EXPLAINED THE RISKS AND BENEFITS TO PATIENT. PATIENT VERBALIZED UNDERSTANDING, BUT STILL REFUSED LAB DRAW
--- NOTE | 2021-02-14 07:22 | NUR ---
CIGAR MAKING MACHINE OPERATOR CLOSING NOTES PATIENT SLEEPING IN BED, A/O X 4. PATIENT ABLE TO MAKE NEEDS KNOWN, NO COMPLAINTS OF CHEST PAIN THROUGHOUT SHIFT. PATIENT STABLE ON ROOM AIR, NO S/S OF DISTRESS OR SHORTNESS OF BREATH NOTED. PATIENT ON TELE. MEDICATIONS GIVEN ORDERED. PATIENT NEEDS MET THROUGHOUT SHIFT. SAFETY MEASURES IN PLACE, CALL LIGHT WITHIN REACH, BED LOCKED IN LOWEST POSITION. WILL ENDORSE TO DAY SHIFT NURSE FOR CONTINUITY OF CARE
--- NOTE | 2021-02-14 07:27 | NUR ---
PRODUCT SUPPORT REPRESENTATIVE OPENING NOTES PATIENT SLEEPING IN BED, A/O X 4. PATIENT ABLE TO MAKE NEEDS KNOWN, NO COMPLAINTS OF CHEST PAIN THROUGHOUT SHIFT. PATIENT STABLE ON ROOM AIR, NO S/S OF DISTRESS OR SHORTNESS OF BREATH NOTED. PATIENT ON TELE. MEDICATIONS GIVEN ORDERED. PATIENT NEEDS MET THROUGHOUT SHIFT. SAFETY MEASURES IN PLACE, CALL LIGHT WITHIN REACH, BED LOCKED IN LOWEST POSITION.
[2021-02-14] MEDS ORDERED: PANTOPRAZOLE 40 MG TABLET.DR PO SCH (07:30)
[2021-02-14 08:00] VITALS: BP 119/77
[2021-02-14] MEDS ORDERED: ASPIRIN EC 81 MG TABLET.DR PO SCH (09:00)
[2021-02-14] MEDS ORDERED: ASPI-1420 PO (13:46)
== END 2021-02-14 14:00 | disposition home or self-care (01) | DRG 918 ==
LOC: ER 10:30 → TELE 17:54 → MED 02-14 09:55
PROVIDERS: ADMIT Student in an Organized Health Care Education/Training Program; ATTEND Student in an Organized Health Care Education/Training Program
DX: T43.621A Poisoning by amphetamines, accidental (unintentional), initial encounter (principal); R07.9 Chest pain, unspecified; E11.9 Type 2 diabetes mellitus without complications; E66.9 Obesity, unspecified; E78.5 Hyperlipidemia, unspecified; F17.210 Nicotine dependence, cigarettes, uncomplicated; F31.9 Bipolar disorder, unspecified; F41.9 Anxiety disorder, unspecified; I11.0 Hypertensive heart disease with heart failure; I50.9 Heart failure, unspecified; K21.9 Gastro-esophageal reflux disease without esophagitis; M19.90 Unspecified osteoarthritis, unspecified site; Z20.822 Contact with and (suspected) exposure to COVID-19; Y92.009 Unspecified place in unspecified non-institutional (private) residence as the place of occurrence of the external cause; T40.5X1A Poisoning by cocaine, accidental (unintentional), initial encounter; T40.7X1A Poisoning by cannabis (derivatives), accidental (unintentional), initial encounter; R00.0 Tachycardia, unspecified; F12.188 Cannabis abuse with other cannabis-induced disorder; F15.188 Other stimulant abuse with other stimulant-induced disorder; F14.188 Cocaine abuse with other cocaine-induced disorder; Z72.89 Other problems related to lifestyle; I25.84 Coronary atherosclerosis due to calcified coronary lesion
CPT/HCPCS: 36415; 71045-TC; 80048-TC; 84484-TC; 85025-TC; C9803; G0378; G0480; J1650; J2060

== ENCOUNTER 2021-03-11 01:05 | Emergency (ER) | payer MEDICARE, OTHER ==
[~2021-03-11] VITALS: Ht 180.3 cm; Wt 111.1 kg
[~2021-03-11 01:05] MED LIST changes: -ASPI-1169 PO; +ASPI-1420 PO
--- NOTE | 2021-03-11 01:30 | NUR ---
bibself c/o SI and depression. Pt hearing voices to OD. Denies HI
[2021-03-11 01:38] LABS: BASOPHILS # (AUTO) 0.1 K/uL (0.0-0.2); BASOPHILS % (AUTO) 1.2 % (0.0-2.0); EOSINOPHILS % (AUTO) 1.8 % (0.0-6.0); HEMATOCRIT 39 % (39-51); HEMOGLOBIN 12.7 g/dL (13.5-17.5); LYMPHOCYTES # (AUTO) 1.3 K/uL (0.8-4.8); LYMPHOCYTES % (AUTO) 31.2 % (20.0-44.0); MEAN CORPUSCULAR HGB CONC 32 g/dl (31.0-36.0); MEAN CORPUSCULAR VOLUME 88 fL (80-96); MONOCYTES # (AUTO) 0.4 K/uL (0.1-1.30); MONOCYTES % (AUTO) 9.1 % (2.0-12.0); NEUTROPHILS # (AUTO) 2.4 K/uL (1.8-8.9); NEUTROPHILS % (AUTO) 56.7 % (43.0-81.0); PLATELET COUNT (AUTO) 213 K/uL (150-450); RED BLOOD CELL COUNT(AUTO) 4.43 MIL/uL (4.5-6.0); WHITE BLOOD COUNT (AUTO) 4.2 K/uL (4.3-11.0)
[2021-03-11 01:41] LABS: BILIRUBIN,URINE Negative (NEGATIVE); COLOR,URINE YELLOW (YELLOW); LEUKOCYTE ESTERASE ,URINE Negative (NEGATIVE); NITRITE, URINE Negative (NEGATIVE); PROTEIN,URINE Negative (NEGATIVE); UGLUCOSE Negative (NEGATIVE); UROBILINOGEN,URINE 0.2 EU/dL (0.2)
[2021-03-11 01:49] LABS: CALCIUM, SERUM 9.4 mg/dL (8.5-10.1); CREATININE 1.6 mg/dL (0.6-1.3); POTASSIUM 3.6 mmol/L (3.5-5.1)
[2021-03-11 01:53] LABS: ALBUMIN 3.4 g/dL (3.4-5.0); BILIRUBIN,DIRECT 0.1 mg/dL (0.0-0.2); BILIRUBIN,TOTAL 0.2 mg/dL (0.2-1.0); TOTAL PROTEIN, SERUM 7.4 g/dL (6.4-8.2)
--- NOTE | 2021-03-11 05:13 | NUR ---
PT ACCEPTED TO [facility] BY DR JACKSON. # FOR REPORT [phone] Addendum: 03/11/21 at 0517 by CBATACLAN PT ACCEPTED TO [facility] BY DR JACKSON AFTER 1100. # FOR REPORT [phone].
[2021-03-11 07:03] VITALS: BP 110/65
--- NOTE | 2021-03-11 07:37 | NUR ---
REPORT GIVEN TO BILLY. THE PATIENT IS GOING TO UNIT 1
--- NOTE | 2021-03-11 07:53 | NUR ---
[facility] ETA 30 MIN
--- NOTE | 2021-03-11 08:20 | NUR ---
transported in stable condition.
== END 2021-03-11 08:21 ==
LOC: ER 01:10
DX: R45.851 Suicidal ideations (principal); I10 Essential (primary) hypertension; E78.00 Pure hypercholesterolemia, unspecified; Z88.8 Allergy status to other drugs, medicaments and biological substances; Z79.82 Long term (current) use of aspirin; Z79.899 Other long term (current) drug therapy; Z20.822 Contact with and (suspected) exposure to COVID-19
CPT/HCPCS: 36415; 80048-TC; 80076-TC; 85025-TC; 87081-TC; C9803; G0480

== ENCOUNTER 2021-05-01 22:38 | Emergency (ER) | payer MEDICARE, OTHER ==
[~2021-05-01] VITALS: Ht 180.3 cm; Wt 111.1 kg
--- NOTE | 2021-05-01 23:25 | NUR ---
PT AAOX4. AMBULATORY WITH STEADY GAIT. BIBSELF C/O SI WITH A PLAN TO OVERDOSE ON PILLS. -HI. REQUESTING VOLUNTARY ADMISSION. PLACED IN BED, IN A GOWN, ON MONITOR. BELONGINGS PLACED IN LOCKER. SITTER AT BEDSIDE.
--- NOTE | 2021-05-01 23:31 | NUR ---
SPOKE TO LAB REGARDING BLOOD DRAW
[2021-05-01 23:48] LABS: PLATELET COUNT (AUTO) 206 K/uL (150-450)
[2021-05-01 23:56] LABS: BASOPHILS # (AUTO) 0.2 K/uL (0.0-0.2); BASOPHILS % (AUTO) 3.9 % (0.0-2.0); CALCIUM, SERUM 9.1 mg/dL (8.5-10.1); CARBON DIOXIDE 25 mmol/L (21-32); CHLORIDE 108 mmol/L (98-107); CREATININE 1.5 mg/dL (0.6-1.3); EOSINOPHILS % (AUTO) 1.5 % (0.0-6.0); GLUCOSE 118 mg/dL (74-106); HEMATOCRIT 41 % (39-51); HEMOGLOBIN 13.2 g/dL (13.5-17.5); LYMPHOCYTES # (AUTO) 1.5 K/uL (0.8-4.8); LYMPHOCYTES % (AUTO) 33.9 % (20.0-44.0); MEAN CORPUSCULAR HGB CONC 33 g/dl (31.0-36.0); MEAN CORPUSCULAR VOLUME 88 fL (80-96); MONOCYTES # (AUTO) 0.4 K/uL (0.1-1.30); MONOCYTES % (AUTO) 9.7 % (2.0-12.0); NEUTROPHILS # (AUTO) 2.2 K/uL (1.8-8.9); POTASSIUM 3.4 mmol/L (3.5-5.1); SODIUM SERUM 143 mmol/L (136-145); UREA NITROGEN, BLOOD 17 mg/dL (7-18); WHITE BLOOD COUNT (AUTO) 4.4 K/uL (4.3-11.0)
[2021-05-02 00:03] LABS: ALANINE AMINOTRANSFERASE 34 U/L (12-78); ALBUMIN 3.5 g/dL (3.4-5.0); ALCOHOL, BLOOD 123 mg/dL (0-0); ALKALINE PHOSPHATASE 91 U/L (46-116); ASPARTATE AMINOTRANSFERASE 30 U/L (15-37); BILIRUBIN,DIRECT 0.1 mg/dL (0.0-0.2); BILIRUBIN,TOTAL 0.2 mg/dL (0.2-1.0); TOTAL PROTEIN, SERUM 7.6 g/dL (6.4-8.2)
[2021-05-02 00:04] LABS: ACETAMINOPHEN < 10 ug/ml (10-30)
--- NOTE | 2021-05-02 00:52 | NUR ---
UNABLE TO PROVIDE URINE SAMPLE. STATED HE WILL TRY AGAIN SOON. PT PROVIDED WITH MORE WATER.
--- NOTE | 2021-05-02 01:48 | NUR ---
URINE COLLECTED AND SENT TO THE LAB.
[2021-05-02 03:02] LABS: BILIRUBIN,URINE SMALL (NEGATIVE); COLOR,URINE DARK YELLOW (YELLOW); LEUKOCYTE ESTERASE ,URINE NEGATIVE (NEGATIVE); NITRITE, URINE NEGATIVE (NEGATIVE); PH,URINE 5.5 (5.0-8.0); PROTEIN,URINE TRACE mg/dl (NEGATIVE); UGLUCOSE NEGATIVE (NEGATIVE)
[2021-05-02 03:08] LABS: BACTERIA,URINE Rare /HPF (None Seen); CALCIUM OXALATE CRYSTALS,UR Moderate /HPF (None Seen); RBC,URINE 0-2 /HPF (0-2); SQUAMOUS EPITHELIAL CELL,UR Rare /HPF (None Seen); WBC,URINE 0-2 /HPF (0-3)
--- NOTE | 2021-05-02 03:15 | NUR ---
CLINICAL AND FACESHEET FAXED TO [facility] INTAKE FOR VOLUNTARY PSYCH ADMISSION.
--- NOTE | 2021-05-02 04:35 | NUR ---
PT ACCEPTED TO [facility] UNDER DR. HADLEY. GIVE REPORT AT [phone]
--- NOTE | 2021-05-02 05:05 | NUR ---
REPORT GIVEN TO ANNA SIGALA FOR [facility]
--- NOTE | 2021-05-02 05:13 | NUR ---
Ginette menendez in [facility] - 05/02/21 at 0514 by RAF REPORT GIVEN TO NURSE CASTILLO
--- NOTE | 2021-05-02 05:18 | NUR ---
[facility] FOR TRANSPORT ETA [phone] AM.
--- NOTE | 2021-05-02 08:43 | NUR ---
REPORT GIVEN TO EMS FOR PT TRANSFER TO [facility]
[2021-05-02 09:00] VITALS: BP 133/70
== END 2021-05-02 09:01 ==
LOC: ER 22:38
DX: R45.851 Suicidal ideations (principal); F19.10 Other psychoactive substance abuse, uncomplicated; Z82.49 Family history of ischemic heart disease and other diseases of the circulatory system; Z20.822 Contact with and (suspected) exposure to COVID-19; E78.00 Pure hypercholesterolemia, unspecified; Z79.899 Other long term (current) drug therapy; F17.200 Nicotine dependence, unspecified, uncomplicated; I10 Essential (primary) hypertension; Z88.8 Allergy status to other drugs, medicaments and biological substances
CPT/HCPCS: 36415; 80048-TC; 80076-TC; 81001; 85025-TC; C9803; G0480

== ENCOUNTER 2021-08-04 15:02 | Emergency (ER) | payer MEDICARE, OTHER ==
[~2021-08-04] VITALS: Ht 180.3 cm; Wt 113.4 kg
--- NOTE | 2021-08-04 15:14 | NUR ---
BIBS FOR FEELING DEPRESSED AND HAVING SI WITH A EWING TO OD. DENIES HI. IN ROOM AIR AND DENIES SOB. RESPIRATION REGULAR AND UNLABORED. DENIES PAIN. WILL CONTINUE TO MONITOR THE PATIENT.
[2021-08-04 15:59] LABS: BASOPHILS % (AUTO) 0.6 % (0.0-2.0); EOSINOPHILS % (AUTO) 2.1 % (0.0-6.0); HEMATOCRIT 38 % (39-51); HEMOGLOBIN 12.2 g/dL (13.5-17.5); LYMPHOCYTES # (AUTO) 1.3 K/uL (0.8-4.8); MEAN CORPUSCULAR HGB CONC 33 g/dl (31.0-36.0); MEAN CORPUSCULAR VOLUME 88 fL (80-96); MONOCYTES # (AUTO) 0.5 K/uL (0.1-1.30); MONOCYTES % (AUTO) 8.2 % (2.0-12.0); NEUTROPHILS # (AUTO) 3.9 K/uL (1.8-8.9); NEUTROPHILS % (AUTO) 67.1 % (43.0-81.0); PLATELET COUNT (AUTO) 254 K/uL (150-450); RED BLOOD CELL COUNT(AUTO) 4.27 MIL/uL (4.5-6.0); WHITE BLOOD COUNT (AUTO) 5.8 K/uL (4.3-11.0)
[2021-08-04 16:06] LABS: CALCIUM, SERUM 8.4 mg/dL (8.5-10.1); CREATININE 1.4 mg/dL (0.6-1.3); POTASSIUM 3.2 mmol/L (3.5-5.1)
[2021-08-04 16:14] LABS: ALBUMIN 3.3 g/dL (3.4-5.0); BILIRUBIN,DIRECT 0.1 mg/dL (0.0-0.2); BILIRUBIN,TOTAL 0.2 mg/dL (0.2-1.0); TOTAL PROTEIN, SERUM 7.6 g/dL (6.4-8.2)
--- NOTE | 2021-08-04 17:00 | NUR ---
URINE COLLECTED AND SENT TO THE LAB
--- NOTE | 2021-08-04 17:04 | NUR ---
ASKED CONNIE TO SEE PT.
[2021-08-04 17:08] LABS: BILIRUBIN,URINE Negative (NEGATIVE); COLOR,URINE YELLOW (YELLOW); LEUKOCYTE ESTERASE ,URINE Negative (NEGATIVE); NITRITE, URINE Negative (NEGATIVE); PROTEIN,URINE Negative (NEGATIVE); UGLUCOSE Negative (NEGATIVE); UROBILINOGEN,URINE 0.2 EU/dL (0.2)
--- NOTE | 2021-08-04 17:20 | NUR ---
CALLED PINKY, SHE IS ON HER WAY.
[2021-08-04] MEDS ORDERED: POTASSIUM CHLORIDE 20 MEQ TAB.PRT.SR PO ONE ×2 (17:30→17:44)
[2021-08-04] MEDS ORDERED: POTASSIUM CHLORIDE 10 MEQ TABLET.SA ONE (17:44)
--- NOTE | 2021-08-05 04:57 | NUR ---
FAXED FACESHEET AND CLINICALS TO [facility].
--- NOTE | 2021-08-05 05:42 | NUR ---
SPOKE TO ART AT [facility] INTAKE. CLINICALS REC'D. IN PROCESS
--- NOTE | 2021-08-05 06:50 | NUR ---
PT GOT ADMITTED AT [facility] BY DR CARRERA. # FOR REPORT: [phone] [facility] ARRANGED FOR ETA: [id number]
--- NOTE | 2021-08-05 06:59 | NUR ---
REPORT GIVEN TO ASHISH AT [facility]
--- NOTE | 2021-08-05 07:30 | NUR ---
PT PROVIDED W/ BREAKFAST TRAY.
--- NOTE | 2021-08-05 08:37 | NUR ---
TRANSPORT AMBULANCE AT BEDSIDE TO TRANSPORT PATIENT. PT DECIDED NOT TO GO VOLUNTARY TO [facility]. STATES HE FEELS MUCH BETTER AND IS NO LONGER SUICIDAL. PT IS AAXO4. AMBULATORY W/ STEADY GAIT. RE EVALUATED BY DR DANIELS AND VERBALLY DISCHARGED. STABLE CONDITION.
[2021-08-05 08:43] VITALS: BP 136/84
== END 2021-08-05 08:43 ==
LOC: ER 15:22
DX: R45.851 Suicidal ideations (principal); Z20.822 Contact with and (suspected) exposure to COVID-19; Z82.49 Family history of ischemic heart disease and other diseases of the circulatory system; E78.00 Pure hypercholesterolemia, unspecified; Z79.899 Other long term (current) drug therapy; F31.9 Bipolar disorder, unspecified; E87.6 Hypokalemia
CPT/HCPCS: 36415; 80048-TC; 80076-TC; 85025-TC; C9803; G0480

== ENCOUNTER 2021-08-28 20:19 | Emergency (ER) | payer MEDICARE, OTHER ==
[~2021-08-28] VITALS: Ht 180.3 cm; Wt 111.1 kg
[2021-08-28 21:02] LABS: CALCIUM, SERUM 8.8 mg/dL (8.5-10.1); CARBON DIOXIDE 23 mmol/L (21-32); CHLORIDE 102 mmol/L (98-107); CREATININE 1.5 mg/dL (0.6-1.3); GLUCOSE 110 mg/dL (74-106); POTASSIUM 3.6 mmol/L (3.5-5.1); SODIUM SERUM 138 mmol/L (136-145); UREA NITROGEN, BLOOD 21 mg/dL (7-18)
[2021-08-28 21:08] LABS: ALANINE AMINOTRANSFERASE 35 U/L (12-78); ALBUMIN 3.6 g/dL (3.4-5.0); ALCOHOL, BLOOD 160 mg/dL (0-0); ALKALINE PHOSPHATASE 79 U/L (46-116); ASPARTATE AMINOTRANSFERASE 21 U/L (15-37); BILIRUBIN,DIRECT 0.1 mg/dL (0.0-0.2); BILIRUBIN,TOTAL 0.1 mg/dL (0.2-1.0)
[2021-08-28 21:09] LABS: ACETAMINOPHEN < 2 ug/ml (10-30)
[2021-08-28 21:19] LABS: BASOPHILS % (AUTO) 0.1 % (0.0-2.0); EOSINOPHILS % (AUTO) 1.4 % (0.0-6.0); HEMATOCRIT 41 % (39-51); HEMOGLOBIN 13.4 g/dL (13.5-17.5); LYMPHOCYTES # (AUTO) 1.8 K/uL (0.8-4.8); LYMPHOCYTES % (AUTO) 26.7 % (20.0-44.0); MEAN CORPUSCULAR HGB CONC 33 g/dl (31.0-36.0); MEAN CORPUSCULAR VOLUME 89 fL (80-96); MONOCYTES # (AUTO) 0.7 K/uL (0.1-1.30); MONOCYTES % (AUTO) 10.5 % (2.0-12.0); NEUTROPHILS # (AUTO) 4.2 K/uL (1.8-8.9); NEUTROPHILS % (AUTO) 61.3 % (43.0-81.0); PLATELET COUNT (AUTO) 227 K/uL (150-450); RED BLOOD CELL COUNT(AUTO) 4.57 MIL/uL (4.5-6.0); WHITE BLOOD COUNT (AUTO) 6.8 K/uL (4.3-11.0)
[2021-08-29 01:06] LABS: BILIRUBIN,URINE NEGATIVE (NEGATIVE); COLOR,URINE YELLOW (YELLOW); LEUKOCYTE ESTERASE ,URINE NEGATIVE (NEGATIVE); NITRITE, URINE NEGATIVE (NEGATIVE); PH,URINE 5.5 (5.0-8.0); PROTEIN,URINE NEGATIVE (NEGATIVE); UGLUCOSE NEGATIVE (NEGATIVE); UROBILINOGEN,URINE 0.2 EU/dL (0.2)
--- NOTE | 2021-08-29 04:14 | NUR ---
FACESHEET AND CLINICALS FAXED TO [facility].
--- NOTE | 2021-08-29 06:08 | NUR ---
PER LEWIS AT [facility] NOBED AVAILABLE AT [facility]. SHE WILL CALL US BACK FOR UPDATE
--- NOTE | 2021-08-29 08:07 | NUR ---
THE PATIENT IS RECEIVED IN ER BED #13. SLEEPING, EASILY RESPONSIVE TO VERBAL STIMULI. RESPIRATION REGULAR AND UNLABORED. WILL CONTINUE TO MONITOR THE PATIENT.
--- NOTE | 2021-08-29 08:20 | NUR ---
THE PATIENT IS SERVED WITH BREAKFAST. TOLERATES PROVIDED MEAL WELL.
--- NOTE | 2021-08-29 10:14 | NUR ---
PT IS ACCEPTED AT [facility] BY # FOR REPORT: [phone]
--- NOTE | 2021-08-29 10:22 | NUR ---
REPORT GIVEN TO [facility]ANE [facility] FOR [facility].
--- NOTE | 2021-08-29 10:55 | NUR ---
[facility] CALLED ETA 45 MINS.
--- NOTE | 2021-08-29 11:26 | NUR ---
REPORT GIVEN TO EMS FOR PT TRANSFER TO [facility].
[2021-08-29 11:42] VITALS: BP 127/61
--- NOTE | 2021-08-29 11:42 | NUR ---
THE PATIENT IS DISCHARGED TO [facility] IN STABLE CONDITION VIA ARRANGED TRANASPO.
== END 2021-08-29 11:42 ==
LOC: ER 20:19
DX: R45.851 Suicidal ideations (principal); F10.129 Alcohol abuse with intoxication, unspecified; Y90.6 Blood alcohol level of 120-199 mg/100 ml; F14.151 Cocaine abuse with cocaine-induced psychotic disorder with hallucinations; N28.9 Disorder of kidney and ureter, unspecified; Z20.822 Contact with and (suspected) exposure to COVID-19; E78.5 Hyperlipidemia, unspecified; Z86.16 Personal history of COVID-19
CPT/HCPCS: 36415; 80048-TC; 80076-TC; 85025-TC; C9803; G0480

== ENCOUNTER 2021-10-12 08:57 | Emergency (ER) | payer MEDICARE, OTHER ==
[~2021-10-12] VITALS: Ht 180.3 cm; Wt 111.1 kg
[2021-10-12 11:45] LABS: ALANINE AMINOTRANSFERASE 19 U/L (12-78); ALBUMIN 3.2 g/dL (3.4-5.0); ALKALINE PHOSPHATASE 72 U/L (46-116); ASPARTATE AMINOTRANSFERASE 17 U/L (15-37); BILIRUBIN,DIRECT 0.1 mg/dL (0.0-0.2); BILIRUBIN,TOTAL 0.1 mg/dL (0.2-1.0); CALCIUM, SERUM 9.6 mg/dL (8.5-10.1); CARBON DIOXIDE 24 mmol/L (21-32); CHLORIDE 106 mmol/L (98-107); CREATININE 1.3 mg/dL (0.6-1.3); GLUCOSE 94 mg/dL (74-106); POTASSIUM 4.1 mmol/L (3.5-5.1); SODIUM SERUM 140 mmol/L (136-145); TOTAL PROTEIN, SERUM 7.6 g/dL (6.4-8.2); UREA NITROGEN, BLOOD 20 mg/dL (7-18)
[2021-10-12 12:02] LABS: ACETAMINOPHEN 0 ug/ml (10-30); ALCOHOL, BLOOD < 3 mg/dL (0-0)
[2021-10-12 12:12] LABS: HEMATOCRIT 41 % (39-51); HEMOGLOBIN 13.2 g/dL (13.5-17.5); MEAN CORPUSCULAR HGB CONC 32 g/dl (31.0-36.0); MEAN CORPUSCULAR VOLUME 89 fL (80-96); RED BLOOD CELL COUNT(AUTO) 4.58 MIL/uL (4.5-6.0); WHITE BLOOD COUNT (AUTO) 9.4 K/uL (4.3-11.0)
--- NOTE | 2021-10-12 14:56 | NUR ---
COVID ANTIGEN SWAB OBTAINED AND SENT TO LAB
--- NOTE | 2021-10-12 14:57 | NUR ---
URINE COLLECTED AND SENT TO LAB
[2021-10-12] MEDS ORDERED: IBUPROFEN 600 MG TABLET PO ONE (15:00)
[2021-10-12 15:45] LABS: BILIRUBIN,URINE SMALL (NEGATIVE); COLOR,URINE YELLOW (YELLOW); LEUKOCYTE ESTERASE ,URINE NEGATIVE (NEGATIVE); NITRITE, URINE NEGATIVE (NEGATIVE); PH,URINE 5.5 (5.0-8.0); PROTEIN,URINE NEGATIVE (NEGATIVE); UGLUCOSE NEGATIVE (NEGATIVE); UROBILINOGEN,URINE 0.2 EU/dL (0.2)
[2021-10-12] MEDS ORDERED: IBUPROFEN 600 MG TABLET ONE (16:14)
--- NOTE | 2021-10-12 16:40 | NUR ---
BRENT faxed clinicals pt. to [facility] [[facility] [place] [address] FAX:[phone]] for voluntary psychiatric treatment. Tox report pending.
[2021-10-12 17:28] LABS: EOSINOPHILS % (AUTO) 1.9 % (0.0-6.0); LYMPHOCYTES % (AUTO) 23.7 % (20.0-44.0); MONOCYTES % (AUTO) 9.5 % (2.0-12.0); NEUTROPHILS % (AUTO) 63.1 % (43.0-81.0); PLATELET COUNT (AUTO) 247 K/uL (150-450)
[2021-10-12 17:29] LABS: BASOPHILS % (AUTO) 1.8 % (0.0-2.0)
[2021-10-12 17:31] LABS: BASOPHILS # (AUTO) 0.1 K/uL (0.0-0.2); LYMPHOCYTES # (AUTO) 1.2 K/uL (0.8-4.8); MONOCYTES # (AUTO) 0.5 K/uL (0.1-1.30); NEUTROPHILS # (AUTO) 3.3 K/uL (1.8-8.9)
[2021-10-12 17:33] LABS: EOSINOPHILS % (MANUAL) 2 % (0-4); LYMPHOCYTES % (MANUAL) 36 % (16-48); MONOCYTES % (MANUAL) 5 % (0-11.0); NEUTROPHILS % (MANUAL) 57 (42-76)
--- NOTE | 2021-10-12 17:44 | NUR ---
FAXED CLINICALS TO [facility]
--- NOTE | 2021-10-12 20:18 | NUR ---
PT WALKED TO RESTROOM, NEEDS MET
[2021-10-12 23:05] VITALS: BP 145/88
--- NOTE | 2021-10-13 02:29 | NUR ---
PT GOT ACCEPTED AT [facility]. BY DR JACKSON AND DR TINOCO. # FOR REPORT: [phone] [facility] ARRANGED. ETA:60-90 MIN
--- NOTE | 2021-10-13 03:21 | NUR ---
[id number] unit 1 for report
--- NOTE | 2021-10-13 03:23 | NUR ---
[facility] AT BED SIDE TO FLEXBOARD OPERATOR THE PT
--- NOTE | 2021-10-13 03:27 | NUR ---
report given to edmundo cuevas
--- NOTE | 2021-10-13 03:35 | NUR ---
PT WAS TRANSFERRED TO [facility] INSTABLE CONDITION.
== END 2021-10-13 03:35 ==
LOC: ER 09:04
DX: R45.851 Suicidal ideations (principal); F32.9 Major depressive disorder, single episode, unspecified; F29 Unspecified psychosis not due to a substance or known physiological condition; F19.10 Other psychoactive substance abuse, uncomplicated; Z20.822 Contact with and (suspected) exposure to COVID-19; I10 Essential (primary) hypertension; E78.5 Hyperlipidemia, unspecified; F12.90 Cannabis use, unspecified, uncomplicated; Z88.8 Allergy status to other drugs, medicaments and biological substances; Z60.2 Problems related to living alone; Z79.82 Long term (current) use of aspirin; Z79.899 Other long term (current) drug therapy
CPT/HCPCS: 36415; 80048-TC; 80076-TC; 85025-TC; C9803; G0480

== ENCOUNTER 2021-10-28 07:53 | Emergency (ER) | payer MEDICARE, OTHER ==
[~2021-10-28] VITALS: Ht 175.3 cm; Wt 113.4 kg
--- NOTE | 2021-10-28 07:53 | NUR ---
PT BIB SELF C/O SI "I WANT TO OD ON PILLS" PT REQUESTING VOLUNTARY PSYCH ADMISSION TO [facility].
--- NOTE | 2021-10-28 08:16 | NUR ---
ER PHLEB AT BEDSIDE FOR BLOOD DRAW.
--- NOTE | 2021-10-28 08:39 | NUR ---
URINAL GIVEN BUT UNABLE TO PROVIDE URINE SPECIMEN THIS TIME.
[2021-10-28 08:48] LABS: BASOPHILS % (AUTO) 0.6 % (0.0-2.0); EOSINOPHILS % (AUTO) 0.8 % (0.0-6.0); HEMATOCRIT 39 % (39-51); HEMOGLOBIN 12.5 g/dL (13.5-17.5); LYMPHOCYTES # (AUTO) 1.1 K/uL (0.8-4.8); MEAN CORPUSCULAR HGB CONC 32 g/dl (31.0-36.0); MEAN CORPUSCULAR VOLUME 88 fL (80-96); MONOCYTES # (AUTO) 0.7 K/uL (0.1-1.30); MONOCYTES % (AUTO) 8.8 % (2.0-12.0); NEUTROPHILS # (AUTO) 5.6 K/uL (1.8-8.9); NEUTROPHILS % (AUTO) 74.8 % (43.0-81.0); PLATELET COUNT (AUTO) 217 K/uL (150-450); RED BLOOD CELL COUNT(AUTO) 4.39 MIL/uL (4.5-6.0); WHITE BLOOD COUNT (AUTO) 7.5 K/uL (4.3-11.0)
--- NOTE | 2021-10-28 08:50 | NUR ---
COVID SPECIMEN OBTAINED AND SENT TO LAB.
--- NOTE | 2021-10-28 10:36 | NUR ---
URINE SPECIMEN OBTAINED AND SENT TO LAB.
[2021-10-28 11:11] LABS: ALBUMIN 3.6 g/dL (3.4-5.0); BILIRUBIN,DIRECT 0.1 mg/dL (0.0-0.2); BILIRUBIN,TOTAL 0.1 mg/dL (0.2-1.0); CALCIUM, SERUM 9.6 mg/dL (8.5-10.1); CREATININE 1.5 mg/dL (0.6-1.3); TOTAL PROTEIN, SERUM 7.7 g/dL (6.4-8.2)
[2021-10-28 11:49] LABS: BILIRUBIN,URINE NEGATIVE (NEGATIVE); COLOR,URINE YELLOW (YELLOW); LEUKOCYTE ESTERASE ,URINE NEGATIVE (NEGATIVE); NITRITE, URINE NEGATIVE (NEGATIVE); PH,URINE 5.5 (5.0-8.0); PROTEIN,URINE NEGATIVE (NEGATIVE); UGLUCOSE NEGATIVE (NEGATIVE); UROBILINOGEN,URINE 0.2 EU/dL (0.2)
[2021-10-28 13:10] LABS: BACTERIA,URINE RARE /HPF (None Seen); RBC,URINE 0-2 /HPF (0-2); WBC,URINE 0-3 /HPF (0-3)
[2021-10-28 13:11] LABS: SQUAMOUS EPITHELIAL CELL,UR NONE SEEN /HPF (None Seen)
--- NOTE | 2021-10-28 13:51 | NUR ---
CALLED [facility] INTAKE PER ART CASE REMAINS UNDER REVIEW AND WILL UPDATE US.
--- NOTE | 2021-10-28 14:15 | NUR ---
PT ACCEPTED TO [facility] UNDER DR. ALBERT CALL [phone] FOR REPORT.
--- NOTE | 2021-10-28 14:46 | NUR ---
REPORT GIVEN TO ZAKIYA VASQUEZ FOR [facility].
--- NOTE | 2021-10-28 15:41 | NUR ---
[facility] AT BEDSIDE FOR CARPENTER'S HELPER.
[2021-10-28 15:42] VITALS: BP 129/67
== END 2021-10-28 15:43 ==
LOC: ER 08:10
DX: R45.851 Suicidal ideations (principal); I10 Essential (primary) hypertension; E78.5 Hyperlipidemia, unspecified; Z86.16 Personal history of COVID-19; Z79.899 Other long term (current) drug therapy; Z79.82 Long term (current) use of aspirin; F32.A Depression, unspecified; Z20.822 Contact with and (suspected) exposure to COVID-19
CPT/HCPCS: 36415; 80048-TC; 80076-TC; 81001; 85025-TC; C9803; G0480

== ENCOUNTER 2021-12-13 12:17 | Emergency (ER) | payer MEDICARE, OTHER ==
[~2021-12-13] VITALS: Ht 180.3 cm; Wt 115.7 kg
--- NOTE | 2021-12-13 12:29 | NUR ---
PT SELF PRESENTS TO ED C/O SUCIAL IDEATION W/ PLAN TO OVERDOSE ON HIS PSYCH MEDICATION. PT IS REQUESTING FOR VOLUNTARY PSYCH ADMISSION TO [facility]. PT DENIES HI. PT HAS MMULTIPLE ED VISITS FOR SAME COMPLAINTS. STABLE VITALS. AWAITING MD VELA.
--- NOTE | 2021-12-13 12:32 | NUR ---
DR DE LEON AT BEDSIDE FOR EVAL.
--- NOTE | 2021-12-13 12:45 | NUR ---
URINE SPECIMEN/COVID SWAB COLLECTED AND SENT TO LAB.
--- NOTE | 2021-12-13 12:55 | NUR ---
TERMINAL COMPUTER OPERATOR AT BEDSIDE FOR BLOOD DRAW
[2021-12-13 13:12] LABS: BASOPHILS % (AUTO) 0.7 % (0.0-2.0); HEMATOCRIT 43 % (39-51); HEMOGLOBIN 13.9 g/dL (13.5-17.5); LYMPHOCYTES # (AUTO) 0.7 K/uL (0.8-4.8); MEAN CORPUSCULAR HGB CONC 32 g/dl (31.0-36.0); MEAN CORPUSCULAR VOLUME 85 fL (80-96); MONOCYTES # (AUTO) 0.6 K/uL (0.1-1.30); MONOCYTES % (AUTO) 14.6 % (2.0-12.0); NEUTROPHILS # (AUTO) 2.8 K/uL (1.8-8.9); NEUTROPHILS % (AUTO) 66.7 % (43.0-81.0); PLATELET COUNT (AUTO) 179 K/uL (150-450); RED BLOOD CELL COUNT(AUTO) 5.05 MIL/uL (4.5-6.0); WHITE BLOOD COUNT (AUTO) 4.3 K/uL (4.3-11.0)
[2021-12-13 13:43] LABS: ALBUMIN 3.4 g/dL (3.4-5.0); BILIRUBIN,DIRECT 0.1 mg/dL (0.0-0.2); CALCIUM, SERUM 8.8 mg/dL (8.5-10.1); CREATININE 1.1 mg/dL (0.6-1.3); POTASSIUM 3.7 mmol/L (3.5-5.1); TOTAL PROTEIN, SERUM 7.6 g/dL (6.4-8.2)
[2021-12-13 14:15] LABS: BILIRUBIN,TOTAL 0.3 mg/dL (0.2-1.0)
[2021-12-13 14:35] LABS: BILIRUBIN,URINE NEGATIVE (NEGATIVE); COLOR,URINE YELLOW (YELLOW); LEUKOCYTE ESTERASE ,URINE NEGATIVE (NEGATIVE); NITRITE, URINE NEGATIVE (NEGATIVE); PH,URINE 5.5 (5.0-8.0); PROTEIN,URINE NEGATIVE (NEGATIVE); UGLUCOSE NEGATIVE (NEGATIVE); UROBILINOGEN,URINE 0.2 EU/dL (0.2)
--- NOTE | 2021-12-13 15:45 | NUR ---
FAXED CLINICALS TO [facility] [FAX: [phone]]
[2021-12-13 17:41] VITALS: BP 141/88
--- NOTE | 2021-12-13 18:24 | NUR ---
PT GOT ACCEPTED TO [facility] UNDER THE CARE OF DR. CARRERA NUMBER FOR REPORT [phone] "UNIT 2"
--- NOTE | 2021-12-13 18:50 | NUR ---
REPORT GIVEN TO LUCIANO SIGALA OF UNIT 2 [facility]
== END 2021-12-13 18:55 ==
LOC: ER 12:18
DX: R45.851 Suicidal ideations (principal); Z20.822 Contact with and (suspected) exposure to COVID-19; I10 Essential (primary) hypertension; E78.5 Hyperlipidemia, unspecified; Z79.82 Long term (current) use of aspirin; Z79.899 Other long term (current) drug therapy; F10.10 Alcohol abuse, uncomplicated; Y90.3 Blood alcohol level of 60-79 mg/100 ml
CPT/HCPCS: 36415; 80048-TC; 80076-TC; 85025-TC; C9803; G0480

== ENCOUNTER 2021-12-20 19:25 | Emergency (ER) | payer MEDICARE, OTHER ==
[~2021-12-20] VITALS: Ht 180.3 cm; Wt 113.4 kg
[2021-12-20 22:00] VITALS: BP 126/74
--- NOTE | 2021-12-20 22:00 | NUR ---
BIBSELF C/O +SI FEELING DEPRESSED X 1 WEEK, SELF HARM NO PLAN, LOOKING FOR VOL PSYCH ADMIT. PATIENT IS A/O X 4, RR EVEN AND UNLABORED, NO SOB NOTED. PATIENT NOTED WITH STEADY GAIT, SKIN INTACT. PATIENT BELONGINGS TAKEN PLACED IN PT LOCKER. PT IN HOSPITAL GOWN. WILL CONTINUE TO MONITOR.
[2021-12-20 22:09] LABS: BASOPHILS % (AUTO) 0.8 % (0.0-2.0); EOSINOPHILS % (AUTO) 0.6 % (0.0-6.0); HEMATOCRIT 41 % (39-51); LYMPHOCYTES # (AUTO) 1.3 K/uL (0.8-4.8); LYMPHOCYTES % (AUTO) 21.2 % (20.0-44.0); MEAN CORPUSCULAR HGB CONC 32 g/dl (31.0-36.0); MEAN CORPUSCULAR VOLUME 87 fL (80-96); MONOCYTES # (AUTO) 0.7 K/uL (0.1-1.30); MONOCYTES % (AUTO) 10.4 % (2.0-12.0); NEUTROPHILS # (AUTO) 4.2 K/uL (1.8-8.9); PLATELET COUNT (AUTO) 214 K/uL (150-450); RED BLOOD CELL COUNT(AUTO) 4.67 MIL/uL (4.5-6.0); WHITE BLOOD COUNT (AUTO) 6.3 K/uL (4.3-11.0)
[2021-12-20 23:36] LABS: ALBUMIN 3.5 g/dL (3.4-5.0); BILIRUBIN,TOTAL 0.1 mg/dL (0.2-1.0); CALCIUM, SERUM 9.4 mg/dL (8.5-10.1); CREATININE 1.4 mg/dL (0.6-1.3); POTASSIUM 3.7 mmol/L (3.5-5.1); TOTAL PROTEIN, SERUM 7.6 g/dL (6.4-8.2)
--- NOTE | 2021-12-21 06:15 | NUR ---
PT ACCEPTED AT [facility] UNDER MD CARRERA REPORT [phone]
--- NOTE | 2021-12-21 06:16 | NUR ---
[facility] ETA 15 MINUTES
--- NOTE | 2021-12-21 06:19 | NUR ---
[facility]
--- NOTE | 2021-12-21 06:50 | NUR ---
REPORT GIVEN TO EMS AT BEDSIDE
== END 2021-12-21 06:53 ==
LOC: ER 19:28
DX: R45.851 Suicidal ideations (principal); F19.10 Other psychoactive substance abuse, uncomplicated; F32.A Depression, unspecified; I12.9 Hypertensive chronic kidney disease with stage 1 through stage 4 chronic kidney disease, or unspecified chronic kidney disease; N18.9 Chronic kidney disease, unspecified; E78.5 Hyperlipidemia, unspecified; Z20.822 Contact with and (suspected) exposure to COVID-19; Z86.16 Personal history of COVID-19
CPT/HCPCS: 36415; 80048-TC; 80076-TC; 85025-TC; C9803; G0480

== ENCOUNTER 2021-12-28 07:53 | Emergency (ER) | payer MEDICARE, OTHER ==
[~2021-12-28] VITALS: Ht 180.3 cm; Wt 113.4 kg
--- NOTE | 2021-12-28 08:02 | NUR ---
BREAKFAST TRAY PROVIDED. TOLERATED WELL
--- NOTE | 2021-12-28 08:30 | NUR ---
Pt roomed. Patient calm/cooperative and easily directable. Compliant with care. Provided with a hospital gown and checked with a wand by Security Yaya. Sitter 9Marta) provided in direct line of sight for patient safety
[2021-12-28 08:55] LABS: WHITE BLOOD COUNT (AUTO) 7.7 K/uL (4.3-11.0)
[2021-12-28 08:56] LABS: BASOPHILS % (AUTO) 0.4 % (0.0-2.0); EOSINOPHILS % (AUTO) 0.6 % (0.0-6.0); HEMATOCRIT 40 % (39-51); LYMPHOCYTES # (AUTO) 1.2 K/uL (0.8-4.8); LYMPHOCYTES % (AUTO) 15.3 % (20.0-44.0); MEAN CORPUSCULAR HGB CONC 33 g/dl (31.0-36.0); MEAN CORPUSCULAR VOLUME 85 fL (80-96); MONOCYTES # (AUTO) 0.8 K/uL (0.1-1.30); MONOCYTES % (AUTO) 10.8 % (2.0-12.0); NEUTROPHILS # (AUTO) 5.6 K/uL (1.8-8.9); NEUTROPHILS % (AUTO) 72.9 % (43.0-81.0); PLATELET COUNT (AUTO) 236 K/uL (150-450); RED BLOOD CELL COUNT(AUTO) 4.67 MIL/uL (4.5-6.0)
[2021-12-28 09:22] LABS: ALANINE AMINOTRANSFERASE 19 U/L (12-78); ALBUMIN 3.4 g/dL (3.4-5.0); ALCOHOL, BLOOD < 3 mg/dL (0-0); ALKALINE PHOSPHATASE 80 U/L (46-116); ASPARTATE AMINOTRANSFERASE 18 U/L (15-37); BILIRUBIN,DIRECT 0.1 mg/dL (0.0-0.2); BILIRUBIN,TOTAL 0.4 mg/dL (0.2-1.0); CALCIUM, SERUM 9.2 mg/dL (8.5-10.1); CARBON DIOXIDE 24 mmol/L (21-32); CHLORIDE 104 mmol/L (98-107); CREATININE 1.3 mg/dL (0.6-1.3); GLUCOSE 110 mg/dL (74-106); POTASSIUM 3.4 mmol/L (3.5-5.1); SODIUM SERUM 139 mmol/L (136-145); TOTAL PROTEIN, SERUM 7.4 g/dL (6.4-8.2); UREA NITROGEN, BLOOD 19 mg/dL (7-18)
[2021-12-28 09:37] LABS: ACETAMINOPHEN 0 ug/ml (10-30)
[2021-12-28 12:11] LABS: BILIRUBIN,URINE NEGATIVE (NEGATIVE); COLOR,URINE YELLOW (YELLOW); LEUKOCYTE ESTERASE ,URINE NEGATIVE (NEGATIVE); NITRITE, URINE NEGATIVE (NEGATIVE); PROTEIN,URINE NEGATIVE (NEGATIVE); UGLUCOSE NEGATIVE (NEGATIVE); UROBILINOGEN,URINE 0.2 EU/dL (0.2)
--- NOTE | 2021-12-28 12:30 | NUR ---
LUNCH TRAY PROVIDED. TOLERATED WELL
--- NOTE | 2021-12-28 15:07 | NUR ---
BRENT faxed clinicals to [facility] [[address] [place] [address] FAX:[phone]] for voluntary psychiatric treatment.
--- NOTE | 2021-12-28 16:40 | NUR ---
PT. ACCEPTED TO [facility] UNDER CARE OF DR.GESSESSE THEO GARCIA. UNIT 2. REPORT [phone] EX.[id number]
--- NOTE | 2021-12-28 16:44 | NUR ---
[facility]
--- NOTE | 2021-12-28 16:48 | NUR ---
REPORT GIVEN TO ALEXA AT COUNT INCLUDES THE [facility].
[2021-12-28 18:54] VITALS: BP 139/88
--- NOTE | 2021-12-28 19:10 | NUR ---
PATIENT PICKED UP BY [facility] IN STABLE CONDITION. ALL BELONGINGS WITH THE PATIENT. ALL DOCUMENTS GIVEN TO TRANSPORT TO BE GIVEN TO [facility].
== END 2021-12-28 19:17 ==
LOC: ER 07:57
DX: R45.851 Suicidal ideations (principal); E87.6 Hypokalemia; E78.5 Hyperlipidemia, unspecified; Z20.822 Contact with and (suspected) exposure to COVID-19; I10 Essential (primary) hypertension; Z79.82 Long term (current) use of aspirin; Z86.16 Personal history of COVID-19; Z79.899 Other long term (current) drug therapy
CPT/HCPCS: 36415; 80048-TC; 80076-TC; 85025-TC; C9803; G0480

== ENCOUNTER 2022-01-15 04:34 | Emergency (ER) | payer MEDICARE, OTHER ==
[~2022-01-15] VITALS: Ht 182.9 cm; Wt 104.3 kg
--- NOTE | 2022-01-15 04:58 | NUR ---
PATIENT BIBSELF C/O + SI WITH PLAN TO OD. PATIENT IS A/O X 4, RR EVEN AND UNLABORED, NO SOB NOTED, VSS. PATIENT TAKEN TO ER BED 18. PATIENTS BELONGINGS COLLECTED AND PLACED IN LOCKER. PATIENT PLACED IN HOSPITAL GOWN. PATIENT SKIN INTACT, AMBULATES WITH STEADY GAIT. WILL CONTINUE TO MONITOR.
[2022-01-15 05:11] LABS: BASOPHILS # (AUTO) 0.1 K/uL (0.0-0.2); BASOPHILS % (AUTO) 1.4 % (0.0-2.0); EOSINOPHILS % (AUTO) 1.7 % (0.0-6.0); HEMATOCRIT 39 % (39-51); HEMOGLOBIN 12.8 g/dL (13.5-17.5); LYMPHOCYTES # (AUTO) 1.6 K/uL (0.8-4.8); LYMPHOCYTES % (AUTO) 24.9 % (20.0-44.0); MEAN CORPUSCULAR HGB CONC 33 g/dl (31.0-36.0); MEAN CORPUSCULAR VOLUME 85 fL (80-96); MONOCYTES # (AUTO) 0.5 K/uL (0.1-1.30); MONOCYTES % (AUTO) 7.6 % (2.0-12.0); NEUTROPHILS % (AUTO) 64.4 % (43.0-81.0); PLATELET COUNT (AUTO) 227 K/uL (150-450); RED BLOOD CELL COUNT(AUTO) 4.59 MIL/uL (4.5-6.0); WHITE BLOOD COUNT (AUTO) 6.2 K/uL (4.3-11.0)
[2022-01-15 05:18] LABS: BILIRUBIN,URINE NEGATIVE (NEGATIVE); COLOR,URINE YELLOW (YELLOW); LEUKOCYTE ESTERASE ,URINE NEGATIVE (NEGATIVE); NITRITE, URINE NEGATIVE (NEGATIVE); PH,URINE 5.5 (5.0-8.0); PROTEIN,URINE NEGATIVE (NEGATIVE); UGLUCOSE NEGATIVE (NEGATIVE); UROBILINOGEN,URINE 0.2 EU/dL (0.2)
[2022-01-15 05:27] LABS: ALBUMIN 3.5 g/dL (3.4-5.0); BILIRUBIN,DIRECT 0.1 mg/dL (0.0-0.2); BILIRUBIN,TOTAL 0.2 mg/dL (0.2-1.0); CALCIUM, SERUM 8.9 mg/dL (8.5-10.1); CREATININE 1.3 mg/dL (0.6-1.3); POTASSIUM 3.7 mmol/L (3.5-5.1); TOTAL PROTEIN, SERUM 7.9 g/dL (6.4-8.2)
--- NOTE | 2022-01-15 06:24 | NUR ---
FACESHEET AND CLINICALS FAXED TO [facility].
--- NOTE | 2022-01-15 11:50 | NUR ---
SPOKE TO JANELLE BLOOD INTAKE, AWAITING CLINICAL REVIEW FROM NURSING EXTRUSION DIE REPAIRER
--- NOTE | 2022-01-15 12:31 | NUR ---
[facility] AM[facility]ULANCE TO [facility] ETA 1400
--- NOTE | 2022-01-15 13:15 | NUR ---
LUNCH TRAY PROVIDED. TOLERATED WELL
[2022-01-15 13:44] VITALS: BP 129/71
--- NOTE | 2022-01-15 13:46 | NUR ---
patient picked up by private ambulance going to [facility] in no distress. All belongings returned to patient. Left in stable condition, denies any pain or discomfort. Calm and cooperative.
== END 2022-01-15 13:45 ==
LOC: ER 04:38
DX: R45.851 Suicidal ideations (principal); F19.10 Other psychoactive substance abuse, uncomplicated; E78.5 Hyperlipidemia, unspecified; Z86.16 Personal history of COVID-19; F17.200 Nicotine dependence, unspecified, uncomplicated; Z20.822 Contact with and (suspected) exposure to COVID-19; Z79.899 Other long term (current) drug therapy
CPT/HCPCS: 36415; 80048-TC; 80076-TC; 85025-TC; C9803; G0480

== ENCOUNTER 2022-02-01 14:25 | Emergency (ER) | payer MEDICARE, OTHER ==
[~2022-02-01] VITALS: Ht 180.3 cm; Wt 113.4 kg
--- NOTE | 2022-02-01 14:25 | NUR ---
PT BIB SELF C/O SI "OD ON PILLS" REQUESTING VOLUNTARY PSYCH ADMISSION TO [facility]. PT IS AAOX4, NOT IN RESPIRATORY DISTRESS, V/S STABLE, KEPT RESTED AND COMFORTABLE. SITTER AT BEDSIDE.
--- NOTE | 2022-02-01 14:37 | NUR ---
ER PHLEB AT BEDSIDE FOR BLOOD DRAW.
[2022-02-01 14:48] LABS: BASOPHILS % (AUTO) 0.8 % (0.0-2.0); EOSINOPHILS % (AUTO) 1.1 % (0.0-6.0); HEMATOCRIT 38 % (39-51); HEMOGLOBIN 12.3 g/dL (13.5-17.5); LYMPHOCYTES % (AUTO) 20.4 % (20.0-44.0); MEAN CORPUSCULAR HGB CONC 32 g/dl (31.0-36.0); MEAN CORPUSCULAR VOLUME 86 fL (80-96); MONOCYTES # (AUTO) 0.5 K/uL (0.1-1.30); MONOCYTES % (AUTO) 10.7 % (2.0-12.0); NEUTROPHILS # (AUTO) 3.2 K/uL (1.8-8.9); PLATELET COUNT (AUTO) 196 K/uL (150-450); RED BLOOD CELL COUNT(AUTO) 4.44 MIL/uL (4.5-6.0); WHITE BLOOD COUNT (AUTO) 4.8 K/uL (4.3-11.0)
[2022-02-01 15:22] LABS: CALCIUM, SERUM 8.6 mg/dL (8.5-10.1); CARBON DIOXIDE 24 mmol/L (21-32); CHLORIDE 108 mmol/L (98-107); CREATININE 1.4 mg/dL (0.6-1.3); GLUCOSE 101 mg/dL (74-106); POTASSIUM 3.7 mmol/L (3.5-5.1); SODIUM SERUM 143 mmol/L (136-145); UREA NITROGEN, BLOOD 18 mg/dL (7-18)
[2022-02-01 15:27] LABS: ALANINE AMINOTRANSFERASE 26 U/L (12-78); ALBUMIN 3.4 g/dL (3.4-5.0); ALCOHOL, BLOOD 121 mg/dL (0-0); ALKALINE PHOSPHATASE 82 U/L (46-116); ASPARTATE AMINOTRANSFERASE 24 U/L (15-37); BILIRUBIN,DIRECT 0.1 mg/dL (0.0-0.2); BILIRUBIN,TOTAL 0.3 mg/dL (0.2-1.0); TOTAL PROTEIN, SERUM 7.3 g/dL (6.4-8.2)
[2022-02-01 15:46] LABS: ACETAMINOPHEN < 2 ug/ml (10-30)
[2022-02-01 17:35] LABS: BILIRUBIN,URINE NEGATIVE (NEGATIVE); COLOR,URINE YELLOW (YELLOW); LEUKOCYTE ESTERASE ,URINE NEGATIVE (NEGATIVE); NITRITE, URINE NEGATIVE (NEGATIVE); PH,URINE 5.5 (5.0-8.0); PROTEIN,URINE NEGATIVE (NEGATIVE); UGLUCOSE NEGATIVE (NEGATIVE); UROBILINOGEN,URINE 0.2 EU/dL (0.2)
[2022-02-01 17:53] LABS: BACTERIA,URINE Few /HPF (None Seen); RBC,URINE 0-2 /HPF (0-2); SQUAMOUS EPITHELIAL CELL,UR Few /HPF (None Seen); WBC,URINE 0-2 /HPF (0-3)
--- NOTE | 2022-02-01 19:49 | NUR ---
PT RESTING COMFORTABLY IN BED, FOOD AND DRINK PROVIDED. WILL CONTINUE TO MONITOR.
--- NOTE | 2022-02-01 21:56 | NUR ---
PT IS ASLEEP BUT EASILY AROUSABLE. WILL CONTINUE TO MONITOR.
--- NOTE | 2022-02-01 22:35 | NUR ---
FACESHEET AND CLINICALS FAXED TO [facility].
--- NOTE | 2022-02-01 23:28 | NUR ---
PT IS ACCEPTED AT [facility] UNDER THE CARE OF DR. JACKSON. CALL [phone] FOR REPORT
--- NOTE | 2022-02-01 23:44 | NUR ---
[facility] ETA 10-15 MINUTES.
[2022-02-02] VITALS: BP 113/79
--- NOTE | 2022-02-02 00:05 | NUR ---
[facility] AT BEDSIDE FOR PT TRANSPORT TO [facility]. PT IS IN STABLE CONDITION. AMBULATED TO [facility] ON STEADY GAIT. ALL BELONGINGS GIVEN BACK
== END 2022-02-02 00:10 ==
LOC: ER 14:27
DX: D64.9 Anemia, unspecified (principal); F10.129 Alcohol abuse with intoxication, unspecified; Y90.6 Blood alcohol level of 120-199 mg/100 ml; F19.10 Other psychoactive substance abuse, uncomplicated; Z20.822 Contact with and (suspected) exposure to COVID-19; I12.9 Hypertensive chronic kidney disease with stage 1 through stage 4 chronic kidney disease, or unspecified chronic kidney disease; N18.2 Chronic kidney disease, stage 2 (mild); E78.5 Hyperlipidemia, unspecified; Z86.16 Personal history of COVID-19; Z88.8 Allergy status to other drugs, medicaments and biological substances; F17.200 Nicotine dependence, unspecified, uncomplicated; Z79.899 Other long term (current) drug therapy; Z79.82 Long term (current) use of aspirin
CPT/HCPCS: 36415; 80048-TC; 80076-TC; 81001; 85025-TC; C9803; G0480

== ENCOUNTER 2022-02-16 14:12 | Emergency (ER) | payer MEDICARE, OTHER ==
--- NOTE | 2022-02-16 14:20 | NUR ---
called to triage,no answer
--- NOTE | 2022-02-16 14:50 | NUR ---
CALLED TO TRIAGE,NO ANSWER
--- NOTE | 2022-02-16 15:02 | NUR ---
called to triage,no answer
== END 2022-02-16 15:03 | disposition left against medical advice (07) ==
LOC: ER 14:14
DX: Z53.21 Procedure and treatment not carried out due to patient leaving prior to being seen by health care provider (principal)

== ENCOUNTER 2022-04-18 19:35 | Emergency (ER) | payer MEDICARE, OTHER ==
[~2022-04-18] VITALS: Ht 177.8 cm; Wt 88.5 kg
--- NOTE | 2022-04-18 19:40 | NUR ---
C/O SI. REQUESTING VOLUNTARY PSYCH ADMISSION. PATIENT ALERT AND ORIENTED X4. AMBULATORY WITH NON LABORED BREATHING. ALL BELONGINGS TAKEN AND PUT IN A LOCKER. PATIENT IN BED 18 AWAITING MD VELA.
[2022-04-18 21:04] LABS: BASOPHILS # (AUTO) 0.1 K/uL (0.0-0.2); BASOPHILS % (AUTO) 1.1 % (0.0-2.0); EOSINOPHILS % (AUTO) 1.2 % (0.0-6.0); HEMATOCRIT 42 % (39-51); HEMOGLOBIN 13.8 g/dL (13.5-17.5); LYMPHOCYTES # (AUTO) 1.3 K/uL (0.8-4.8); LYMPHOCYTES % (AUTO) 26.5 % (20.0-44.0); MEAN CORPUSCULAR HGB CONC 33 g/dl (31.0-36.0); MEAN CORPUSCULAR VOLUME 87 fL (80-96); MONOCYTES # (AUTO) 0.4 K/uL (0.1-1.30); MONOCYTES % (AUTO) 8.3 % (2.0-12.0); NEUTROPHILS % (AUTO) 62.9 % (43.0-81.0); PLATELET COUNT (AUTO) 224 K/uL (150-450); RED BLOOD CELL COUNT(AUTO) 4.87 MIL/uL (4.5-6.0); WHITE BLOOD COUNT (AUTO) 4.8 K/uL (4.3-11.0)
[2022-04-18 21:19] LABS: ALANINE AMINOTRANSFERASE 21 U/L (12-78); ALBUMIN 3.5 g/dL (3.4-5.0); ALCOHOL, BLOOD 118 mg/dL (0-0); ALKALINE PHOSPHATASE 80 U/L (46-116); ASPARTATE AMINOTRANSFERASE 20 U/L (15-37); BILIRUBIN,DIRECT 0.1 mg/dL (0.0-0.2); BILIRUBIN,TOTAL 0.2 mg/dL (0.2-1.0); CALCIUM, SERUM 9.4 mg/dL (8.5-10.1); CARBON DIOXIDE 27 mmol/L (21-32); CHLORIDE 103 mmol/L (98-107); CREATININE 1.5 mg/dL (0.6-1.3); GLUCOSE 115 mg/dL (74-106); POTASSIUM 3.5 mmol/L (3.5-5.1); SODIUM SERUM 139 mmol/L (136-145); UREA NITROGEN, BLOOD 16 mg/dL (7-18)
[2022-04-18 21:22] LABS: ACETAMINOPHEN < 2 ug/ml (10-30)
--- NOTE | 2022-04-18 21:43 | NUR ---
COVID SWAB DONE AND SENT TO LAB
--- NOTE | 2022-04-18 21:43 | NUR ---
URINE COLLECTED AND SENT TO LAB
[2022-04-19 00:02] LABS: BILIRUBIN,URINE SMALL (NEGATIVE); COLOR,URINE YELLOW (YELLOW); LEUKOCYTE ESTERASE ,URINE NEGATIVE (NEGATIVE); NITRITE, URINE NEGATIVE (NEGATIVE); PH,URINE 5.5 (5.0-8.0); PROTEIN,URINE TRACE mg/dl (NEGATIVE); UGLUCOSE NEGATIVE (NEGATIVE); UROBILINOGEN,URINE 0.2 EU/dL (0.2)
--- NOTE | 2022-04-19 01:46 | NUR ---
FACESHEET AND CLINICALS FAXED TO [facility].
--- NOTE | 2022-04-19 05:16 | NUR ---
[facility] UNDER DR PETIT NUMBER REPORT: [phone]
--- NOTE | 2022-04-19 05:19 | NUR ---
[facility] ETA 15MINS
--- NOTE | 2022-04-19 05:20 | NUR ---
REPORT GIVEN TO ZAKIYA MOLINA AT [facility]
--- NOTE | 2022-04-19 05:36 | NUR ---
[facility] AT [facility]
--- NOTE | 2022-04-19 05:43 | NUR ---
ALL OF PT'S BELONGINGS GIVEN TO [facility] FOR PT TO DC TO [facility]
[2022-04-19 05:44] VITALS: BP 127/72
== END 2022-04-19 05:44 ==
LOC: ER 19:39
DX: F32.A Depression, unspecified (principal); R45.851 Suicidal ideations; F10.10 Alcohol abuse, uncomplicated; Y90.5 Blood alcohol level of 100-119 mg/100 ml; Z20.822 Contact with and (suspected) exposure to COVID-19; E78.5 Hyperlipidemia, unspecified; I10 Essential (primary) hypertension; Z86.16 Personal history of COVID-19
CPT/HCPCS: 36415; 80048-TC; 80076-TC; 85025-TC; C9803; G0480

== ENCOUNTER 2022-08-18 23:12 | Emergency (ER) | payer MEDICARE, OTHER ==
[~2022-08-18] VITALS: Ht 180.3 cm; Wt 113.4 kg
--- NOTE | 2022-08-19 04:21 | NUR ---
BIBS TO ER BED 18. AAOX4. NOT IN ANY DISTRESS. AMBULATORY ON STEADY GAIT. CAME IN FOR SUICIDAL IDEATION W/O ANY SPECIFIC PLAN. PT DENIES HI. WAS AT THE BEDSIDE FOR EVAL. URINE AND COVID SWAB COLLECTED AND SENT.
[2022-08-19 05:04] LABS: BASOPHILS % (AUTO) 0.2 % (0.0-2.0); EOSINOPHILS % (AUTO) 2.1 % (0.0-6.0); HEMATOCRIT 44 % (39-51); HEMOGLOBIN 14.3 g/dL (13.5-17.5); LYMPHOCYTES # (AUTO) 1.5 K/uL (0.8-4.8); MEAN CORPUSCULAR HGB CONC 32 g/dl (31.0-36.0); MEAN CORPUSCULAR VOLUME 90 fL (80-96); MONOCYTES # (AUTO) 0.5 K/uL (0.1-1.30); MONOCYTES % (AUTO) 10.2 % (2.0-12.0); NEUTROPHILS % (AUTO) 58.5 % (43.0-81.0); PLATELET COUNT (AUTO) 229 K/uL (150-450); RED BLOOD CELL COUNT(AUTO) 4.95 MIL/uL (4.5-6.0); WHITE BLOOD COUNT (AUTO) 5.1 K/uL (4.3-11.0)
[2022-08-19 05:07] LABS: BILIRUBIN,URINE NEGATIVE (NEGATIVE); COLOR,URINE YELLOW (YELLOW); LEUKOCYTE ESTERASE ,URINE NEGATIVE (NEGATIVE); NITRITE, URINE NEGATIVE (NEGATIVE); PROTEIN,URINE TRACE mg/dl (NEGATIVE); UGLUCOSE NEGATIVE (NEGATIVE); UROBILINOGEN,URINE 0.2 EU/dL (0.2)
[2022-08-19 05:18] LABS: CALCIUM, SERUM 9.1 mg/dL (8.5-10.1); CARBON DIOXIDE 28 mmol/L (21-32); CHLORIDE 101 mmol/L (98-107); CREATININE 1.1 mg/dL (0.6-1.3); GLUCOSE 93 mg/dL (74-106); POTASSIUM 3.2 mmol/L (3.5-5.1); SODIUM SERUM 137 mmol/L (136-145); UREA NITROGEN, BLOOD 16 mg/dL (7-18)
[2022-08-19 05:21] LABS: BACTERIA,URINE Rare /HPF (None Seen); RBC,URINE 0-2 /HPF (0-2); SQUAMOUS EPITHELIAL CELL,UR Few /HPF (None Seen); WBC,URINE 0-2 /HPF (0-3)
[2022-08-19 05:24] LABS: ALANINE AMINOTRANSFERASE 24 U/L (12-78); ALBUMIN 3.7 g/dL (3.4-5.0); ALCOHOL, BLOOD < 3 mg/dL (0-0); ALKALINE PHOSPHATASE 96 U/L (46-116); ASPARTATE AMINOTRANSFERASE 26 U/L (15-37); BILIRUBIN,DIRECT 0.2 mg/dL (0.0-0.2); BILIRUBIN,TOTAL 0.5 mg/dL (0.2-1.0); TOTAL PROTEIN, SERUM 8.3 g/dL (6.4-8.2)
[2022-08-19 05:25] LABS: ACETAMINOPHEN 0 ug/ml (10-30)
[2022-08-19] MEDS ORDERED: POTASSIUM CHLORIDE 20 MEQ TAB.PRT.SR PO ONE ×2 (06:00→06:02)
--- NOTE | 2022-08-19 06:01 | NUR ---
clinicals faxed to [facility]
--- NOTE | 2022-08-19 08:35 | NUR ---
10AM SOLE [facility], ACCEPTED UNDER DR MESSER.
[2022-08-19 11:57] VITALS: BP 142/84
== END 2022-08-19 12:07 ==
LOC: ER 23:16
DX: R45.851 Suicidal ideations (principal); E87.6 Hypokalemia; Z20.822 Contact with and (suspected) exposure to COVID-19; E78.5 Hyperlipidemia, unspecified; I10 Essential (primary) hypertension; Z79.82 Long term (current) use of aspirin; Z79.899 Other long term (current) drug therapy; Z88.8 Allergy status to other drugs, medicaments and biological substances
CPT/HCPCS: 36415; 80048-TC; 80076-TC; 81001; 85025-TC; C9803; G0480

== ENCOUNTER 2022-08-22 04:42 | Emergency (ER) | payer MEDICARE, OTHER ==
[~2022-08-22] VITALS: Ht 180.3 cm; Wt 113.4 kg
--- NOTE | 2022-08-22 05:30 | NUR ---
BIBS TO ER BED 19. AAOX4. NOT IN RESP DISTRESS, BREATHING EVEN AND UNLABORED. AMBULATORY. CAME IN FOR MID STERNAL CHEST PAIN W/ L ARM NUMBNESS SHARP 7/10 X 1 HR MEAT GRADING MACHINE OPERATOR. EKG WAS DONE. HERBOLOGIST AT BEDSIDE WELL FOR BLOOD DRAW. AWAITING MD FOR EVAL
[2022-08-22 05:57] LABS: BASOPHILS # (AUTO) 0.1 K/uL (0.0-0.2); EOSINOPHILS % (AUTO) 1.2 % (0.0-6.0); HEMATOCRIT 40 % (39-51); HEMOGLOBIN 13.2 g/dL (13.5-17.5); LYMPHOCYTES # (AUTO) 1.5 K/uL (0.8-4.8); LYMPHOCYTES % (AUTO) 26.2 % (20.0-44.0); MEAN CORPUSCULAR HGB CONC 33 g/dl (31.0-36.0); MEAN CORPUSCULAR VOLUME 88 fL (80-96); MONOCYTES # (AUTO) 0.5 K/uL (0.1-1.30); MONOCYTES % (AUTO) 8.7 % (2.0-12.0); NEUTROPHILS # (AUTO) 3.6 K/uL (1.8-8.9); NEUTROPHILS % (AUTO) 62.9 % (43.0-81.0); PLATELET COUNT (AUTO) 233 K/uL (150-450); RED BLOOD CELL COUNT(AUTO) 4.58 MIL/uL (4.5-6.0); WHITE BLOOD COUNT (AUTO) 5.7 K/uL (4.3-11.0)
[2022-08-22 06:08] LABS: CALCIUM, SERUM 9.3 mg/dL (8.5-10.1); CARBON DIOXIDE 26 mmol/L (21-32); CHLORIDE 104 mmol/L (98-107); CREATININE 1.3 mg/dL (0.6-1.3); GLUCOSE 104 mg/dL (74-106); POTASSIUM 3.6 mmol/L (3.5-5.1); SODIUM SERUM 139 mmol/L (136-145); UREA NITROGEN, BLOOD 15 mg/dL (7-18)
--- NOTE | 2022-08-22 06:20 | NUR ---
PT VERNALIZED THAT HE IS DEPRESSED AND WANT TO GO TO [facility] FOR HIS MEDICATION TO BE ADJUSTED. URINE COLLECTED WELL COVID SWAB AND SENT TO LAB
[2022-08-22 06:40] LABS: BILIRUBIN,URINE NEGATIVE (NEGATIVE); COLOR,URINE YELLOW (YELLOW); LEUKOCYTE ESTERASE ,URINE NEGATIVE (NEGATIVE); NITRITE, URINE NEGATIVE (NEGATIVE); PH,URINE 5.5 (5.0-8.0); PROTEIN,URINE NEGATIVE (NEGATIVE); UGLUCOSE NEGATIVE (NEGATIVE); UROBILINOGEN,URINE 0.2 EU/dL (0.2)
[2022-08-22 07:18] LABS: BACTERIA,URINE None seen /HPF (None Seen); MUCUS,URINE Few /LPF (None Seen); RBC,URINE 0-2 /HPF (0-2); SQUAMOUS EPITHELIAL CELL,UR Rare /HPF (None Seen); WBC,URINE 0-2 /HPF (0-3)
[2022-08-22 07:22] LABS: ALBUMIN 3.5 g/dL (3.4-5.0); BILIRUBIN,DIRECT 0.1 mg/dL (0.0-0.2); BILIRUBIN,TOTAL 0.3 mg/dL (0.2-1.0); TOTAL PROTEIN, SERUM 7.7 g/dL (6.4-8.2)
--- NOTE | 2022-08-22 08:36 | NUR ---
PT DENIES SUICIDAL IDEATION AT THIS TIME AND REQUESTED TO BE DISCHARGED. DR DE LEON AWARE.
[2022-08-22 08:37] VITALS: BP 125/80
== END 2022-08-22 08:38 | disposition home or self-care (01) ==
LOC: ER 04:47
DX: R07.9 Chest pain, unspecified (principal); F19.10 Other psychoactive substance abuse, uncomplicated; Z20.822 Contact with and (suspected) exposure to COVID-19; E78.5 Hyperlipidemia, unspecified; Z79.899 Other long term (current) drug therapy; I10 Essential (primary) hypertension; Z86.16 Personal history of COVID-19; Z88.8 Allergy status to other drugs, medicaments and biological substances
CPT/HCPCS: 36415; 71045-TC; 80048-TC; 80076-TC; 81001; 84484-TC; 85025-TC; C9803; G0480

== ENCOUNTER 2022-09-15 22:10 | Emergency (ER) | payer MEDICARE, OTHER ==
[~2022-09-15] VITALS: Ht 180.3 cm; Wt 2.6 kg
[2022-09-16] VITALS: BP 150/85
--- NOTE | 2022-09-16 | NUR ---
PATIENT BIBSELF C/O WANTS VOL PSYCH ADMIT, +SI -HI. VSS, NO ACUTE DISTRESS NOTED, WILL CONTINUE TO MONITOR.
[2022-09-16 00:59] LABS: BASOPHILS % (AUTO) 0.2 % (0.0-2.0); EOSINOPHILS % (AUTO) 0.5 % (0.0-6.0); HEMATOCRIT 40 % (39-51); HEMOGLOBIN 12.8 g/dL (13.5-17.5); LYMPHOCYTES # (AUTO) 1.3 K/uL (0.8-4.8); LYMPHOCYTES % (AUTO) 18.3 % (20.0-44.0); MEAN CORPUSCULAR HGB CONC 32 g/dl (31.0-36.0); MEAN CORPUSCULAR VOLUME 88 fL (80-96); MONOCYTES # (AUTO) 0.7 K/uL (0.1-1.30); MONOCYTES % (AUTO) 9.6 % (2.0-12.0); NEUTROPHILS # (AUTO) 5.2 K/uL (1.8-8.9); NEUTROPHILS % (AUTO) 71.4 % (43.0-81.0); PLATELET COUNT (AUTO) 215 K/uL (150-450); RED BLOOD CELL COUNT(AUTO) 4.55 MIL/uL (4.5-6.0); WHITE BLOOD COUNT (AUTO) 7.3 K/uL (4.3-11.0)
[2022-09-16 01:12] LABS: CALCIUM, SERUM 8.6 mg/dL (8.5-10.1); CARBON DIOXIDE 24 mmol/L (21-32); CHLORIDE 107 mmol/L (98-107); CREATININE 1.2 mg/dL (0.6-1.3); GLUCOSE 121 mg/dL (74-106); POTASSIUM 3.5 mmol/L (3.5-5.1); SODIUM SERUM 143 mmol/L (136-145); UREA NITROGEN, BLOOD 22 mg/dL (7-18)
[2022-09-16 01:18] LABS: ACETAMINOPHEN 0 ug/ml (10-30); ALANINE AMINOTRANSFERASE 23 U/L (12-78); ALBUMIN 3.4 g/dL (3.4-5.0); ALCOHOL, BLOOD < 3 mg/dL (0-0); ALKALINE PHOSPHATASE 67 U/L (46-116); ASPARTATE AMINOTRANSFERASE 23 U/L (15-37); BILIRUBIN,DIRECT 0.1 mg/dL (0.0-0.2); BILIRUBIN,TOTAL 0.2 mg/dL (0.2-1.0); TOTAL PROTEIN, SERUM 7.5 g/dL (6.4-8.2)
[2022-09-16 01:29] LABS: BILIRUBIN,URINE 1+ (NEGATIVE); COLOR,URINE DARK YELLOW (YELLOW); LEUKOCYTE ESTERASE ,URINE NEGATIVE (NEGATIVE); NITRITE, URINE NEGATIVE (NEGATIVE); PROTEIN,URINE TRACE mg/dl (NEGATIVE); UGLUCOSE NEGATIVE (NEGATIVE)
[2022-09-16 01:33] LABS: BACTERIA,URINE Rare /HPF (None Seen); RBC,URINE 0-2 /HPF (0-2); SQUAMOUS EPITHELIAL CELL,UR Few /HPF (None Seen)
[2022-09-16 01:34] LABS: MUCUS,URINE Moderate /LPF (None Seen)
--- NOTE | 2022-09-16 04:31 | NUR ---
PATIENT ACCEPTED AT [facility] UNDER DR CARRERA REPORT GIVEN TO NURSE CELESTINE [phone]
--- NOTE | 2022-09-16 04:43 | NUR ---
[facility] CALLED FOR BLS GOING TO [facility] - 15 MIN.
--- NOTE | 2022-09-16 05:04 | NUR ---
[facility] AT PT'S BEDSIDE TO TRANSFER PT TO [facility]; ALL BELONGINGS AT PT'S BEDSIDE
== END 2022-09-16 05:14 ==
LOC: ER 22:12
DX: R45.851 Suicidal ideations (principal); F19.10 Other psychoactive substance abuse, uncomplicated; Z20.822 Contact with and (suspected) exposure to COVID-19; Z59.00 Homelessness unspecified; I10 Essential (primary) hypertension; E78.00 Pure hypercholesterolemia, unspecified; Z86.16 Personal history of COVID-19
CPT/HCPCS: 36415; 80048-TC; 80076-TC; 81001; 85025-TC; C9803; G0480

== ENCOUNTER 2022-09-22 06:09 | Emergency (ER) | payer MEDICARE, OTHER ==
[~2022-09-22] VITALS: Ht 180.3 cm; Wt 113.4 kg
[2022-09-22] MEDS ORDERED: NITROGLYCERIN PACKET 1 GM PACKET ONE (06:29)
[2022-09-22] MEDS ORDERED: NITROGLYCERIN PACKET 1 GM PACKET TD ONE (06:30)
--- NOTE | 2022-09-22 06:40 | NUR ---
BIBRA39. LEFT SIDE CHEST PAIN SINCE APPROX 0600. NON RADIATING. WAS 8/10 EN ROUTE GIVEN 1 SPRAY NITRO AND PAIN IMPROVED TO 5/10. ASA 325 ALSO GIVEN EN ROUTE. PT DENIES ANY SOB, NASUEA, OR DIZZINESS, ECG SINUS TACH. PT AWAKE AND ALERT X4 BREATHING UNLABORED PLACED ON MONITOR AND V/S WNL. MD WAS AT BEDSIDE FOR EVAL.
--- NOTE | 2022-09-22 06:44 | NUR ---
20g iv started at . unable to draw blood from iv site. phleb at bedside for blood draw.
[2022-09-22 07:18] LABS: CALCIUM, SERUM 8.7 mg/dL (8.5-10.1); CARBON DIOXIDE 26 mmol/L (21-32); CHLORIDE 104 mmol/L (98-107); CREATININE 1.1 mg/dL (0.6-1.3); GLUCOSE 99 mg/dL (74-106); POTASSIUM 3.3 mmol/L (3.5-5.1); SODIUM SERUM 137 mmol/L (136-145); UREA NITROGEN, BLOOD 15 mg/dL (7-18)
[2022-09-22 07:23] LABS: BASOPHILS # (AUTO) 0.1 K/uL (0.0-0.2); BASOPHILS % (AUTO) 1.3 % (0.0-2.0); EOSINOPHILS % (AUTO) 0.8 % (0.0-6.0); HEMATOCRIT 41 % (39-51); LYMPHOCYTES % (AUTO) 18.7 % (20.0-44.0); MEAN CORPUSCULAR HGB CONC 32 g/dl (31.0-36.0); MEAN CORPUSCULAR VOLUME 89 fL (80-96); MONOCYTES # (AUTO) 0.4 K/uL (0.1-1.30); MONOCYTES % (AUTO) 8.1 % (2.0-12.0); NEUTROPHILS # (AUTO) 3.9 K/uL (1.8-8.9); NEUTROPHILS % (AUTO) 71.1 % (43.0-81.0); PLATELET COUNT (AUTO) 197 K/uL (150-450); WHITE BLOOD COUNT (AUTO) 5.5 K/uL (4.3-11.0)
[2022-09-22 07:34] LABS: ALANINE AMINOTRANSFERASE 17 U/L (12-78); ALBUMIN 3.2 g/dL (3.4-5.0); ALKALINE PHOSPHATASE 65 U/L (46-116); ASPARTATE AMINOTRANSFERASE 16 U/L (15-37); BILIRUBIN,TOTAL 0.2 mg/dL (0.2-1.0); TOTAL PROTEIN, SERUM 7.2 g/dL (6.4-8.2)
[2022-09-22 07:44] LABS: BILIRUBIN,DIRECT 0.1 mg/dL (0.0-0.2)
--- NOTE | 2022-09-22 08:50 | NUR ---
DINESS\ES CHEST PAIN NO SOB
--- NOTE | 2022-09-22 08:52 | NUR ---
IV removed. Catheter intact and site benign. Pressure and 4x4 applied to site. No bleeding noted.
--- NOTE | 2022-09-22 08:55 | NUR ---
Patient discharged to home in stable condition. Written and verbal after care instructions given. Patient verbalizes understanding of instruction.
[2022-09-22 09:20] VITALS: BP 151/96
== END 2022-09-22 09:24 | disposition home or self-care (01) ==
LOC: ER 06:14
DX: R07.89 Other chest pain (principal); I10 Essential (primary) hypertension; E78.5 Hyperlipidemia, unspecified; E78.00 Pure hypercholesterolemia, unspecified; F17.200 Nicotine dependence, unspecified, uncomplicated; Z86.16 Personal history of COVID-19; Z88.8 Allergy status to other drugs, medicaments and biological substances; Z79.899 Other long term (current) drug therapy
CPT/HCPCS: 36415; 71045-TC; 80048-TC; 80076-TC; 84484-TC; 85025-TC

== ENCOUNTER 2023-07-07 01:31 | Emergency (ER) | payer OTHER, MEDICAID ==
[~2023-07-07] VITALS: Ht 180.3 cm; Wt 111.1 kg
[2023-07-07 02:12] VITALS: TEMP 99
[2023-07-07 02:44] LABS: CALCIUM, SERUM 9.5 mg/dL (8.5-10.1); CARBON DIOXIDE 23 mmol/L (21-32); CHLORIDE 107 mmol/L (98-107); CREATININE 1.2 mg/dL (0.6-1.3); GLUCOSE 104 mg/dL (74-106); POTASSIUM 3.5 mmol/L (3.5-5.1); SODIUM SERUM 142 mmol/L (136-145); UREA NITROGEN, BLOOD 17 mg/dL (7-18)
[2023-07-07 02:49] LABS: ALANINE AMINOTRANSFERASE 51 U/L (12-78); ALBUMIN 3.5 g/dL (3.4-5.0); ALCOHOL, BLOOD 111 mg/dL (0-10); ALKALINE PHOSPHATASE 71 U/L (46-116); ASPARTATE AMINOTRANSFERASE 103 U/L (15-37); BILIRUBIN,DIRECT 0.1 mg/dL (0.0-0.2); BILIRUBIN,TOTAL 0.2 mg/dL (0.2-1.0); SALICYLATE 3.6 mg/dL (2.8-20.0); TOTAL PROTEIN, SERUM 7.7 g/dL (6.4-8.2)
[2023-07-07 02:52] LABS: ACETAMINOPHEN <10 ug/ml (10-30)
[2023-07-07 02:53] LABS: BASOPHILS # (AUTO) 0.2 K/uL (0.0-0.2); BASOPHILS % (AUTO) 4.2 % (0.0-2.0); EOSINOPHILS # (AUTO) 0.1 K/uL (0.0-0.7); EOSINOPHILS % (AUTO) 1.5 % (0.0-6.0); HEMATOCRIT 39 % (39-51); HEMOGLOBIN 12.4 g/dL (13.5-17.5); LYMPHOCYTES # (AUTO) 0.5 K/uL (0.8-4.8); LYMPHOCYTES % (AUTO) 8.8 % (20.0-44.0); MEAN CORPUSCULAR HEMOGLOBIN 28 PG (26.0-33.0); MEAN CORPUSCULAR HGB CONC 32 g/dl (31.0-36.0); MEAN CORPUSCULAR VOLUME 87 fL (80-96); MONOCYTES # (AUTO) 0.4 K/uL (0.1-1.30); MONOCYTES % (AUTO) 7.7 % (2.0-12.0); NEUTROPHILS % (AUTO) 77.8 % (43.0-81.0); PLATELET COUNT (AUTO) 238 K/uL (150-450); RED BLOOD CELL COUNT(AUTO) 4.49 MIL/uL (4.5-6.0); WHITE BLOOD COUNT (AUTO) 5.2 K/uL (4.3-11.0)
[2023-07-07 03:41] LABS: APPEARANCE,URINE CLEAR (CLEAR); BILIRUBIN,URINE NEGATIVE (NEGATIVE); BLOOD, URINE NEGATIVE Ery/uL (NEGATIVE); COLOR,URINE YELLOW (YELLOW); KETONES,URINE NEGATIVE (NEGATIVE); LEUKOCYTE ESTERASE ,URINE NEGATIVE (NEGATIVE); NITRITE, URINE NEGATIVE (NEGATIVE); PH,URINE 5.5 (5.0-8.0); PROTEIN,URINE NEGATIVE (NEGATIVE); UGLUCOSE NEGATIVE (NEGATIVE); UROBILINOGEN,URINE 0.2 EU/dL (0.2)
[2023-07-07 03:51] LABS: BARBITURATE, URINE NEGATIVE (NEGATIVE); BENZODIAZEPINE, URINE NEGATIVE (NEGATIVE); COCCAINE, URINE NEGATIVE (NEGATIVE); OPIATE, URINE NEGATIVE (NEGATIVE); PHENCYCLIDINE SCREEN,URINE NEGATIVE (NEGATIVE)
[2023-07-07 03:56] LABS: AMPHETAMINE, URINE POSITIVE (NEGATIVE); CANNABINOID, URINE POSITIVE (NEGATIVE)
[2023-07-07 09:28] VITALS: BP 152/84; O2SAT 98
== END 2023-07-07 09:30 ==
LOC: ER 01:43
DX: R45.851 Suicidal ideations (principal); F10.129 Alcohol abuse with intoxication, unspecified; F19.10 Other psychoactive substance abuse, uncomplicated; I10 Essential (primary) hypertension; E78.00 Pure hypercholesterolemia, unspecified; F32.A Depression, unspecified; Z20.822 Contact with and (suspected) exposure to COVID-19; Z86.16 Personal history of COVID-19; Z88.8 Allergy status to other drugs, medicaments and biological substances; Y90.5 Blood alcohol level of 100-119 mg/100 ml
CPT/HCPCS: 99285; 85025; 80048; 80076; 81003; 36415; 87426; 80143; 80320 ×2; 80307; C9803; G0480

== ENCOUNTER 2023-08-08 21:05 | Emergency (ER) | payer OTHER ==
[~2023-08-08] VITALS: Ht 180.3 cm; Wt 113.4 kg
[2023-08-09 01:54] LABS: BASOPHILS # (AUTO) 0.1 K/uL (0.0-0.2); BASOPHILS % (AUTO) 0.8 % (0.0-2.0); EOSINOPHILS # (AUTO) 0.1 K/uL (0.0-0.7); EOSINOPHILS % (AUTO) 0.8 % (0.0-6.0); HEMATOCRIT 39 % (39-51); HEMOGLOBIN 12.5 g/dL (13.5-17.5); LYMPHOCYTES # (AUTO) 0.9 K/uL (0.8-4.8); LYMPHOCYTES % (AUTO) 12.1 % (20.0-44.0); MEAN CORPUSCULAR HEMOGLOBIN 28 PG (26.0-33.0); MEAN CORPUSCULAR HGB CONC 32 g/dl (31.0-36.0); MEAN CORPUSCULAR VOLUME 88 fL (80-96); MONOCYTES # (AUTO) 0.4 K/uL (0.1-1.30); MONOCYTES % (AUTO) 5.6 % (2.0-12.0); NEUTROPHILS # (AUTO) 5.8 K/uL (1.8-8.9); NEUTROPHILS % (AUTO) 80.7 % (43.0-81.0); PLATELET COUNT (AUTO) 221 K/uL (150-450); RED BLOOD CELL COUNT(AUTO) 4.41 MIL/uL (4.5-6.0); RED CELL DISTRIBUTION WIDTH 17.4 % (11.5-15.0); WHITE BLOOD COUNT (AUTO) 7.2 K/uL (4.3-11.0)
[2023-08-09 02:03] LABS: APPEARANCE,URINE CLEAR (CLEAR); BILIRUBIN,URINE NEGATIVE (NEGATIVE); BLOOD, URINE NEGATIVE Ery/uL (NEGATIVE); COLOR,URINE YELLOW (YELLOW); KETONES,URINE NEGATIVE (NEGATIVE); LEUKOCYTE ESTERASE ,URINE NEGATIVE (NEGATIVE); NITRITE, URINE NEGATIVE (NEGATIVE); PH,URINE 5.5 (5.0-8.0); PROTEIN,URINE NEGATIVE (NEGATIVE); UGLUCOSE NEGATIVE (NEGATIVE); UROBILINOGEN,URINE 0.2 EU/dL (0.2)
[2023-08-09 02:07] LABS: ALANINE AMINOTRANSFERASE 18 U/L (12-78); ALBUMIN 3.4 g/dL (3.4-5.0); ALCOHOL, BLOOD 19 mg/dL (0-10); ALKALINE PHOSPHATASE 74 U/L (46-116); ASPARTATE AMINOTRANSFERASE 14 U/L (15-37); BILIRUBIN,DIRECT 0.1 mg/dL (0.0-0.2); BILIRUBIN,TOTAL 0.2 mg/dL (0.2-1.0); CALCIUM, SERUM 9.2 mg/dL (8.5-10.1); CARBON DIOXIDE 22 mmol/L (21-32); CHLORIDE 103 mmol/L (98-107); CREATININE 1.5 mg/dL (0.6-1.3); GLUCOSE 109 mg/dL (74-106); POTASSIUM 3.8 mmol/L (3.5-5.1); SODIUM SERUM 136 mmol/L (136-145); TOTAL PROTEIN, SERUM 7.4 g/dL (6.4-8.2); UREA NITROGEN, BLOOD 23 mg/dL (7-18)
[2023-08-09 02:08] LABS: AMPHETAMINE, URINE NEGATIVE (NEGATIVE); BARBITURATE, URINE NEGATIVE (NEGATIVE); BENZODIAZEPINE, URINE NEGATIVE (NEGATIVE); COCCAINE, URINE NEGATIVE (NEGATIVE); OPIATE, URINE NEGATIVE (NEGATIVE); PHENCYCLIDINE SCREEN,URINE NEGATIVE (NEGATIVE)
[2023-08-09 02:15] LABS: CANNABINOID, URINE POSITIVE (NEGATIVE)
[2023-08-09 02:15] LABS: ACETAMINOPHEN <10 ug/ml (10-30)
[2023-08-14 10:35] VITALS: BP 125/78; TEMP 98.6; O2SAT 98
== END 2023-08-09 07:43 ==
LOC: ER 21:16
DX: R45.851 Suicidal ideations (principal); I10 Essential (primary) hypertension; E78.00 Pure hypercholesterolemia, unspecified; F32.A Depression, unspecified; F17.200 Nicotine dependence, unspecified, uncomplicated; Z86.16 Personal history of COVID-19; Z88.8 Allergy status to other drugs, medicaments and biological substances; Z60.2 Problems related to living alone; Z20.822 Contact with and (suspected) exposure to COVID-19
CPT/HCPCS: 36415; 80048-TC; 80076-TC; 85025-TC; C9803; G0480

== ENCOUNTER 2023-08-23 20:03 | Emergency (ER) | payer OTHER | END 2023-08-23 22:47 | disposition left against medical advice (07) | LOC: ER 20:10 | DX: Z00.00 Encounter for general adult medical examination without abnormal findings (principal); Z53.21 Procedure and treatment not carried out due to patient leaving prior to being seen by health care provider ==

== ENCOUNTER 2023-08-24 04:39 | Emergency (ER) | payer OTHER ==
[~2023-08-24] VITALS: Ht 180.3 cm; Wt 108.9 kg
[2023-08-24 05:35] LABS: BASOPHILS # (AUTO) 0.1 K/uL (0.0-0.2); BASOPHILS % (AUTO) 1.2 % (0.0-2.0); EOSINOPHILS # (AUTO) 0.1 K/uL (0.0-0.7); EOSINOPHILS % (AUTO) 1.3 % (0.0-6.0); HEMATOCRIT 37 % (39-51); HEMOGLOBIN 11.9 g/dL (13.5-17.5); LYMPHOCYTES % (AUTO) 17.2 % (20.0-44.0); MEAN CORPUSCULAR HEMOGLOBIN 28 PG (26.0-33.0); MEAN CORPUSCULAR HGB CONC 32 g/dl (31.0-36.0); MEAN CORPUSCULAR VOLUME 88 fL (80-96); MONOCYTES # (AUTO) 0.6 K/uL (0.1-1.30); NEUTROPHILS # (AUTO) 4.2 K/uL (1.8-8.9); NEUTROPHILS % (AUTO) 70.3 % (43.0-81.0); PLATELET COUNT (AUTO) 197 K/uL (150-450); RED BLOOD CELL COUNT(AUTO) 4.21 MIL/uL (4.5-6.0); RED CELL DISTRIBUTION WIDTH 17.7 % (11.5-15.0)
[2023-08-24 05:52] LABS: ALANINE AMINOTRANSFERASE 47 U/L (12-78); ALBUMIN 3.4 g/dL (3.4-5.0); ALCOHOL, BLOOD 30 mg/dL (0-10); ALKALINE PHOSPHATASE 84 U/L (46-116); ASPARTATE AMINOTRANSFERASE 26 U/L (15-37); BILIRUBIN,DIRECT 0.1 mg/dL (0.0-0.2); BILIRUBIN,TOTAL 0.1 mg/dL (0.2-1.0); CALCIUM, SERUM 9.5 mg/dL (8.5-10.1); CARBON DIOXIDE 28 mmol/L (21-32); CHLORIDE 107 mmol/L (98-107); CREATININE 1.1 mg/dL (0.6-1.3); GLUCOSE 100 mg/dL (74-106); SODIUM SERUM 140 mmol/L (136-145); TOTAL PROTEIN, SERUM 7.5 g/dL (6.4-8.2); UREA NITROGEN, BLOOD 21 mg/dL (7-18)
[2023-08-24 05:54] LABS: ACETAMINOPHEN <10 ug/ml (10-30); SALICYLATE 2.3 mg/dL (2.8-20.0)
[2023-08-24 09:26] VITALS: BP 138/85; TEMP 98.2; O2SAT 97
== END 2023-08-24 09:27 | disposition home or self-care (01) ==
LOC: ER 04:42
DX: R45.851 Suicidal ideations (principal); F32.A Depression, unspecified; I10 Essential (primary) hypertension; E78.00 Pure hypercholesterolemia, unspecified; F17.200 Nicotine dependence, unspecified, uncomplicated; Z86.16 Personal history of COVID-19; Z88.8 Allergy status to other drugs, medicaments and biological substances; Z60.2 Problems related to living alone; Z20.822 Contact with and (suspected) exposure to COVID-19
CPT/HCPCS: 36415; 80048-TC; 80076-TC; 85025-TC; C9803; G0480

== ENCOUNTER 2023-09-13 19:23 | Emergency (ER) | payer OTHER ==
[~2023-09-13] VITALS: Ht 180.3 cm; Wt 113.4 kg
[2023-09-13 21:25] VITALS: TEMP 98.1
[2023-09-13 21:36] LABS: APPEARANCE,URINE CLEAR (CLEAR); BILIRUBIN,URINE NEGATIVE (NEGATIVE); BLOOD, URINE NEGATIVE Ery/uL (NEGATIVE); COLOR,URINE YELLOW (YELLOW); KETONES,URINE TRACE mg/dL (NEGATIVE); LEUKOCYTE ESTERASE ,URINE NEGATIVE (NEGATIVE); NITRITE, URINE NEGATIVE (NEGATIVE); PH,URINE 5.5 (5.0-8.0); PROTEIN,URINE NEGATIVE (NEGATIVE); UGLUCOSE NEGATIVE (NEGATIVE); UROBILINOGEN,URINE 0.2 EU/dL (0.2)
[2023-09-13 21:53] LABS: AMPHETAMINE, URINE NEGATIVE (NEGATIVE); BARBITURATE, URINE NEGATIVE (NEGATIVE); BENZODIAZEPINE, URINE NEGATIVE (NEGATIVE); COCCAINE, URINE NEGATIVE (NEGATIVE); OPIATE, URINE NEGATIVE (NEGATIVE); PHENCYCLIDINE SCREEN,URINE NEGATIVE (NEGATIVE)
[2023-09-13 22:01] LABS: CANNABINOID, URINE POSITIVE (NEGATIVE)
[2023-09-13 23:10] LABS: BASOPHILS # (AUTO) 0.1 K/uL (0.0-0.2); BASOPHILS % (AUTO) 0.9 % (0.0-2.0); EOSINOPHILS % (AUTO) 0.6 % (0.0-6.0); HEMATOCRIT 37 % (39-51); HEMOGLOBIN 11.9 g/dL (13.5-17.5); LYMPHOCYTES # (AUTO) 1.1 K/uL (0.8-4.8); LYMPHOCYTES % (AUTO) 17.3 % (20.0-44.0); MEAN CORPUSCULAR HEMOGLOBIN 28 PG (26.0-33.0); MEAN CORPUSCULAR HGB CONC 32 g/dl (31.0-36.0); MEAN CORPUSCULAR VOLUME 88 fL (80-96); MONOCYTES # (AUTO) 0.6 K/uL (0.1-1.30); MONOCYTES % (AUTO) 9.5 % (2.0-12.0); NEUTROPHILS # (AUTO) 4.5 K/uL (1.8-8.9); NEUTROPHILS % (AUTO) 71.7 % (43.0-81.0); PLATELET COUNT (AUTO) 197 K/uL (150-450); RED BLOOD CELL COUNT(AUTO) 4.21 MIL/uL (4.5-6.0); RED CELL DISTRIBUTION WIDTH 17.5 % (11.5-15.0); WHITE BLOOD COUNT (AUTO) 6.3 K/uL (4.3-11.0)
[2023-09-13 23:26] LABS: CALCIUM, SERUM 8.9 mg/dL (8.5-10.1); CARBON DIOXIDE 21 mmol/L (21-32); CHLORIDE 104 mmol/L (98-107); CREATININE 1.4 mg/dL (0.6-1.3); GLUCOSE 111 mg/dL (74-106); POTASSIUM 3.4 mmol/L (3.5-5.1); SODIUM SERUM 137 mmol/L (136-145); UREA NITROGEN, BLOOD 20 mg/dL (7-18)
[2023-09-13 23:37] LABS: ALANINE AMINOTRANSFERASE 20 U/L (12-78); ALBUMIN 3.2 g/dL (3.4-5.0); ALCOHOL, BLOOD 112 mg/dL (0-10); ALKALINE PHOSPHATASE 67 U/L (46-116); ASPARTATE AMINOTRANSFERASE 18 U/L (15-37); BILIRUBIN,DIRECT 0.1 mg/dL (0.0-0.2); BILIRUBIN,TOTAL 0.2 mg/dL (0.2-1.0); TOTAL PROTEIN, SERUM 7.1 g/dL (6.4-8.2)
[2023-09-13 23:38] LABS: ACETAMINOPHEN <10 ug/ml (10-30); SALICYLATE 2.5 mg/dL (2.8-20.0)
[2023-09-14 10:12] VITALS: BP 136/84; O2SAT 97
== END 2023-09-14 08:15 | disposition home or self-care (01) ==
LOC: ER 19:25
DX: R45.851 Suicidal ideations (principal); I10 Essential (primary) hypertension; E78.5 Hyperlipidemia, unspecified; F31.9 Bipolar disorder, unspecified; E78.00 Pure hypercholesterolemia, unspecified; Z20.822 Contact with and (suspected) exposure to COVID-19; Z79.899 Other long term (current) drug therapy; Z60.2 Problems related to living alone
CPT/HCPCS: 36415; 80048-TC; 80076-TC; 85025-TC; C9803; G0480

== ENCOUNTER 2023-09-21 18:12 | Emergency (ER) | payer OTHER | END 2023-09-21 22:37 | disposition left against medical advice (07) | LOC: ER 18:17 | DX: R45.851 Suicidal ideations (principal); F32.A Depression, unspecified; Z53.21 Procedure and treatment not carried out due to patient leaving prior to being seen by health care provider ==

== ENCOUNTER 2023-09-26 12:20 | Emergency (ER) | payer OTHER ==
[~2023-09-26] VITALS: Ht 180.3 cm; Wt 113.4 kg
[2023-09-26 13:05] LABS: APPEARANCE,URINE CLEAR (CLEAR); BILIRUBIN,URINE NEGATIVE (NEGATIVE); BLOOD, URINE 2+ Ery/uL (NEGATIVE); COLOR,URINE YELLOW (YELLOW); KETONES,URINE 1+ mg/dL (NEGATIVE); LEUKOCYTE ESTERASE ,URINE NEGATIVE (NEGATIVE); NITRITE, URINE NEGATIVE (NEGATIVE); PH,URINE 5.5 (5.0-8.0); PROTEIN,URINE NEGATIVE (NEGATIVE); UGLUCOSE NEGATIVE (NEGATIVE); UROBILINOGEN,URINE 0.2 EU/dL (0.2)
[2023-09-26 13:16] LABS: BARBITURATE, URINE NEGATIVE (NEGATIVE); BENZODIAZEPINE, URINE NEGATIVE (NEGATIVE); COCCAINE, URINE NEGATIVE (NEGATIVE); PHENCYCLIDINE SCREEN,URINE NEGATIVE (NEGATIVE)
[2023-09-26 13:19] LABS: AMPHETAMINE, URINE POSITIVE (NEGATIVE); CANNABINOID, URINE POSITIVE (NEGATIVE); OPIATE, URINE POSITIVE (NEGATIVE)
[2023-09-26 13:23] LABS: WBC,URINE 0-2 /HPF (0-3)
[2023-09-26 13:24] LABS: ADD URINE CULTURE YES; BACTERIA,URINE 3+ /HPF (None Seen)
[2023-09-26 13:31] LABS: BASOPHILS % (AUTO) 0.5 % (0.0-2.0); EOSINOPHILS # (AUTO) 0.1 K/uL (0.0-0.7); EOSINOPHILS % (AUTO) 0.7 % (0.0-6.0); HEMATOCRIT 40 % (39-51); HEMOGLOBIN 12.8 g/dL (13.5-17.5); LYMPHOCYTES % (AUTO) 12.6 % (20.0-44.0); MEAN CORPUSCULAR HEMOGLOBIN 28 PG (26.0-33.0); MEAN CORPUSCULAR HGB CONC 32 g/dl (31.0-36.0); MEAN CORPUSCULAR VOLUME 88 fL (80-96); MONOCYTES # (AUTO) 0.7 K/uL (0.1-1.30); MONOCYTES % (AUTO) 8.5 % (2.0-12.0); NEUTROPHILS % (AUTO) 77.7 % (43.0-81.0); PLATELET COUNT (AUTO) 224 K/uL (150-450); RED BLOOD CELL COUNT(AUTO) 4.55 MIL/uL (4.5-6.0); RED CELL DISTRIBUTION WIDTH 18.1 % (11.5-15.0); WHITE BLOOD COUNT (AUTO) 7.7 K/uL (4.3-11.0)
[2023-09-26 14:17] LABS: ALANINE AMINOTRANSFERASE 21 U/L (12-78); ALBUMIN 3.6 g/dL (3.4-5.0); ALCOHOL, BLOOD 14 mg/dL (0-10); ALKALINE PHOSPHATASE 80 U/L (46-116); ASPARTATE AMINOTRANSFERASE 14 U/L (15-37); BILIRUBIN,DIRECT 0.1 mg/dL (0.0-0.2); BILIRUBIN,TOTAL 0.2 mg/dL (0.2-1.0); CALCIUM, SERUM 9.4 mg/dL (8.5-10.1); CARBON DIOXIDE 24 mmol/L (21-32); CHLORIDE 106 mmol/L (98-107); GLUCOSE 96 mg/dL (74-106); POTASSIUM 3.5 mmol/L (3.5-5.1); SALICYLATE 3.1 mg/dL (2.8-20.0); SODIUM SERUM 141 mmol/L (136-145); TOTAL PROTEIN, SERUM 8.1 g/dL (6.4-8.2); UREA NITROGEN, BLOOD 20 mg/dL (7-18)
[2023-09-26 14:22] LABS: ACETAMINOPHEN <10 ug/ml (10-30)
[2023-09-26 16:50] VITALS: BP 150/90; TEMP 98.5; O2SAT 97
== END 2023-09-26 20:34 ==
LOC: ER 12:28
DX: R45.851 Suicidal ideations (principal); F19.10 Other psychoactive substance abuse, uncomplicated; I10 Essential (primary) hypertension; E78.5 Hyperlipidemia, unspecified; F32.A Depression, unspecified; E78.00 Pure hypercholesterolemia, unspecified; F17.200 Nicotine dependence, unspecified, uncomplicated; Z86.16 Personal history of COVID-19; Z88.8 Allergy status to other drugs, medicaments and biological substances; Z60.2 Problems related to living alone; Z20.822 Contact with and (suspected) exposure to COVID-19
CPT/HCPCS: 36415; 80048-TC; 80076-TC; 81001; 85025-TC; 87086-TC; G0480

== ENCOUNTER 2023-11-26 09:13 | Emergency (ER) | payer OTHER ==
[~2023-11-26] VITALS: Ht 180.3 cm; Wt 113.4 kg
[2023-11-26 10:10] LABS: CALCIUM, SERUM 8.9 mg/dL (8.5-10.1); CARBON DIOXIDE 25 mmol/L (21-32); CHLORIDE 105 mmol/L (98-107); CREATININE 1.5 mg/dL (0.6-1.3); GLUCOSE 116 mg/dL (74-106); POTASSIUM 3.6 mmol/L (3.5-5.1); SODIUM SERUM 138 mmol/L (136-145); UREA NITROGEN, BLOOD 26 mg/dL (7-18)
[2023-11-26 10:13] LABS: BASOPHILS % (AUTO) 0.6 % (0.0-2.0); EOSINOPHILS % (AUTO) 0.7 % (0.0-6.0); HEMATOCRIT 41 % (39-51); HEMOGLOBIN 13.2 g/dL (13.5-17.5); LYMPHOCYTES # (AUTO) 0.9 K/uL (0.8-4.8); MEAN CORPUSCULAR HEMOGLOBIN 28 PG (26.0-33.0); MEAN CORPUSCULAR HGB CONC 32 g/dl (31.0-36.0); MEAN CORPUSCULAR VOLUME 87 fL (80-96); MONOCYTES # (AUTO) 0.6 K/uL (0.1-1.30); MONOCYTES % (AUTO) 10.8 % (2.0-12.0); NEUTROPHILS % (AUTO) 71.9 % (43.0-81.0); PLATELET COUNT (AUTO) 212 K/uL (150-450); RED BLOOD CELL COUNT(AUTO) 4.68 MIL/uL (4.5-6.0); RED CELL DISTRIBUTION WIDTH 18.5 % (11.5-15.0); WHITE BLOOD COUNT (AUTO) 5.5 K/uL (4.3-11.0)
[2023-11-26 10:16] LABS: ALANINE AMINOTRANSFERASE 22 U/L (12-78); ALBUMIN 3.5 g/dL (3.4-5.0); ALCOHOL, BLOOD < 3 mg/dL (0-10); ALKALINE PHOSPHATASE 68 U/L (46-116); ASPARTATE AMINOTRANSFERASE 21 U/L (15-37); BILIRUBIN,DIRECT 0.1 mg/dL (0.0-0.2); BILIRUBIN,TOTAL 0.4 mg/dL (0.2-1.0); TOTAL PROTEIN, SERUM 7.9 g/dL (6.4-8.2)
[2023-11-26 10:22] LABS: ACETAMINOPHEN <10 ug/ml (10-30); SALICYLATE 2.7 mg/dL (2.8-20.0)
[2023-11-26 12:20] LABS: APPEARANCE,URINE CLEAR (CLEAR); BILIRUBIN,URINE 1+ (NEGATIVE); BLOOD, URINE NEGATIVE Ery/uL (NEGATIVE); COLOR,URINE YELLOW (YELLOW); KETONES,URINE TRACE mg/dL (NEGATIVE); LEUKOCYTE ESTERASE ,URINE NEGATIVE (NEGATIVE); NITRITE, URINE NEGATIVE (NEGATIVE); PH,URINE 5.5 (5.0-8.0); PROTEIN,URINE NEGATIVE (NEGATIVE); UGLUCOSE NEGATIVE (NEGATIVE); UROBILINOGEN,URINE 0.2 EU/dL (0.2)
[2023-11-26 12:26] LABS: ADD URINE CULTURE NO; BACTERIA,URINE Rare /HPF (None Seen); RBC,URINE 0-2 /HPF (0-2); SQUAMOUS EPITHELIAL CELL,UR Few /HPF (None Seen); WBC,URINE 0-2 /HPF (0-3)
[2023-11-26 12:35] LABS: AMPHETAMINE, URINE NEGATIVE (NEGATIVE); BARBITURATE, URINE NEGATIVE (NEGATIVE); BENZODIAZEPINE, URINE NEGATIVE (NEGATIVE); OPIATE, URINE NEGATIVE (NEGATIVE); PHENCYCLIDINE SCREEN,URINE NEGATIVE (NEGATIVE)
[2023-11-26 12:46] LABS: CANNABINOID, URINE POSITIVE (NEGATIVE); COCCAINE, URINE POSITIVE (NEGATIVE)
[2023-11-26] MEDS ORDERED: IBUPROFEN 400 MG TABLET ONE (16:16)
[2023-11-26] MEDS: IBUPROFEN 400 MG TABLET PO ONE (16:19)
[2023-11-26 16:57] VITALS: BP 133/89; TEMP 98.7; O2SAT 100
== END 2023-11-26 16:57 ==
LOC: ER 09:24
DX: R45.851 Suicidal ideations (principal); F19.10 Other psychoactive substance abuse, uncomplicated; I10 Essential (primary) hypertension; E78.00 Pure hypercholesterolemia, unspecified; F31.9 Bipolar disorder, unspecified; F17.200 Nicotine dependence, unspecified, uncomplicated; Z88.8 Allergy status to other drugs, medicaments and biological substances; Z60.2 Problems related to living alone; Z79.899 Other long term (current) drug therapy; Z20.822 Contact with and (suspected) exposure to COVID-19
CPT/HCPCS: 36415; 80048-TC; 80076-TC; 81001; 85025-TC; G0480

== ENCOUNTER 2024-03-18 17:27 | Emergency (ER) | payer MEDICARE, OTHER ==
[~2024-03-18] VITALS: Ht 180.3 cm; Wt 118.4 kg
[2024-03-18 17:37] VITALS: BP 134/79; TEMP 98.7; O2SAT 100
[2024-03-18 19:06] LABS: BASOPHILS # (AUTO) 0.1 K/uL (0.0-0.2); BASOPHILS % (AUTO) 1.4 % (0.0-2.0); EOSINOPHILS % (AUTO) 0.8 % (0.0-6.0); HEMATOCRIT 37 % (39-51); HEMOGLOBIN 12.2 g/dL (13.5-17.5); LYMPHOCYTES # (AUTO) 0.8 K/uL (0.8-4.8); LYMPHOCYTES % (AUTO) 17.4 % (20.0-44.0); MEAN CORPUSCULAR HEMOGLOBIN 28 PG (26.0-33.0); MEAN CORPUSCULAR HGB CONC 33 g/dl (31.0-36.0); MEAN CORPUSCULAR VOLUME 86 fL (80-96); MONOCYTES # (AUTO) 0.3 K/uL (0.1-1.30); MONOCYTES % (AUTO) 6.9 % (2.0-12.0); NEUTROPHILS # (AUTO) 3.5 K/uL (1.8-8.9); NEUTROPHILS % (AUTO) 73.5 % (43.0-81.0); PLATELET COUNT (AUTO) 214 K/uL (150-450); RED BLOOD CELL COUNT(AUTO) 4.33 MIL/uL (4.5-6.0); RED CELL DISTRIBUTION WIDTH 17.9 % (11.5-15.0); WHITE BLOOD COUNT (AUTO) 4.7 K/uL (4.3-11.0)
[2024-03-18 19:16] LABS: ALBUMIN 3.6 g/dL (3.4-5.0); BILIRUBIN,DIRECT 0.1 mg/dL (0.0-0.2); BILIRUBIN,TOTAL 0.3 mg/dL (0.2-1.0); CALCIUM, SERUM 9.6 mg/dL (8.5-10.1); CREATININE 1.4 mg/dL (0.6-1.3); POTASSIUM 3.3 mmol/L (3.5-5.1); TOTAL PROTEIN, SERUM 7.3 g/dL (6.4-8.2)
[2024-03-18 19:18] LABS: SALICYLATE 2.4 mg/dL (2.8-20.0)
[2024-03-18 20:33] LABS: APPEARANCE,URINE CLEAR (CLEAR); BILIRUBIN,URINE 1+ (NEGATIVE); BLOOD, URINE NEGATIVE Ery/uL (NEGATIVE); COLOR,URINE YELLOW (YELLOW); KETONES,URINE 1+ mg/dL (NEGATIVE); LEUKOCYTE ESTERASE ,URINE NEGATIVE (NEGATIVE); NITRITE, URINE NEGATIVE (NEGATIVE); PROTEIN,URINE 1+ mg/dl (NEGATIVE); UGLUCOSE NEGATIVE (NEGATIVE)
[2024-03-18 21:00] LABS: AMPHETAMINE, URINE NEGATIVE (NEGATIVE); BARBITURATE, URINE NEGATIVE (NEGATIVE); BENZODIAZEPINE, URINE NEGATIVE (NEGATIVE); CANNABINOID, URINE POSITIVE (NEGATIVE); COCCAINE, URINE POSITIVE (NEGATIVE); OPIATE, URINE NEGATIVE (NEGATIVE); PHENCYCLIDINE SCREEN,URINE NEGATIVE (NEGATIVE)
[2024-03-18 21:25] LABS: ADD URINE CULTURE NO; BACTERIA,URINE 1+ /HPF (None Seen); HYALINE CASTS, URINE Few /LPF (None Seen); MUCUS,URINE Few /LPF (None Seen); RBC,URINE 0-2 /HPF (0-2); SQUAMOUS EPITHELIAL CELL,UR None Seen /HPF (None Seen); WBC,URINE 0-2 /HPF (0-3)
== END 2024-03-19 01:35 ==
LOC: ER 17:31
DX: R45.851 Suicidal ideations (principal); F19.10 Other psychoactive substance abuse, uncomplicated; I10 Essential (primary) hypertension; E78.5 Hyperlipidemia, unspecified; F31.9 Bipolar disorder, unspecified; E78.00 Pure hypercholesterolemia, unspecified; F17.200 Nicotine dependence, unspecified, uncomplicated; Z20.822 Contact with and (suspected) exposure to COVID-19; Z79.899 Other long term (current) drug therapy; Z60.2 Problems related to living alone
CPT/HCPCS: 36415; 80048-TC; 80076-TC; 81001; 85025-TC; G0480

== ENCOUNTER 2024-06-13 15:21 | Emergency (ER) | payer OTHER ==
[~2024-06-13] VITALS: Ht 180.3 cm; Wt 113.4 kg
[2024-06-13 16:05] VITALS: TEMP 98.1
[2024-06-13 16:46] LABS: BASOPHILS % (AUTO) 0.9 % (0.0-2.0); EOSINOPHILS % (AUTO) 0.6 % (0.0-6.0); HEMATOCRIT 41 % (39-51); HEMOGLOBIN 13.3 g/dL (13.5-17.5); LYMPHOCYTES # (AUTO) 1.5 K/uL (0.8-4.8); LYMPHOCYTES % (AUTO) 30.6 % (20.0-44.0); MEAN CORPUSCULAR HEMOGLOBIN 28 PG (26.0-33.0); MEAN CORPUSCULAR HGB CONC 32 g/dl (31.0-36.0); MEAN CORPUSCULAR VOLUME 88 fL (80-96); MONOCYTES # (AUTO) 0.4 K/uL (0.1-1.30); MONOCYTES % (AUTO) 7.7 % (2.0-12.0); NEUTROPHILS # (AUTO) 2.9 K/uL (1.8-8.9); NEUTROPHILS % (AUTO) 60.2 % (43.0-81.0); PLATELET COUNT (AUTO) 205 K/uL (150-450); RED CELL DISTRIBUTION WIDTH 18.7 % (11.5-15.0); WHITE BLOOD COUNT (AUTO) 4.8 K/uL (4.3-11.0)
[2024-06-13 17:07] LABS: CALCIUM, SERUM 9.8 mg/dL (8.5-10.1); CARBON DIOXIDE 27 mmol/L (21-32); CHLORIDE 107 mmol/L (98-107); CREATININE 1.9 mg/dL (0.6-1.3); GLUCOSE 131 mg/dL (74-106); POTASSIUM 3.3 mmol/L (3.5-5.1); SODIUM SERUM 145 mmol/L (136-145); UREA NITROGEN, BLOOD 20 mg/dL (7-18)
[2024-06-13 17:10] LABS: ALANINE AMINOTRANSFERASE 20 U/L (12-78); ALBUMIN 3.3 g/dL (3.4-5.0); ALCOHOL, BLOOD 143 mg/dL (0-10); ALKALINE PHOSPHATASE 81 U/L (46-116); ASPARTATE AMINOTRANSFERASE 21 U/L (15-37); BILIRUBIN,DIRECT 0.1 mg/dL (0.0-0.2); BILIRUBIN,TOTAL 0.2 mg/dL (0.2-1.0); SALICYLATE 3.9 mg/dL (2.8-20.0); TOTAL PROTEIN, SERUM 7.3 g/dL (6.4-8.2)
[2024-06-13 17:12] LABS: ACETAMINOPHEN <10 ug/ml (10-30)
[2024-06-13 18:32] VITALS: BP 103/69; O2SAT 98
== END 2024-06-13 19:01 ==
LOC: ER 15:46
DX: F32.A Depression, unspecified (principal); I10 Essential (primary) hypertension; E78.00 Pure hypercholesterolemia, unspecified; F14.10 Cocaine abuse, uncomplicated; F17.200 Nicotine dependence, unspecified, uncomplicated; F12.10 Cannabis abuse, uncomplicated; Z86.16 Personal history of COVID-19; Z79.82 Long term (current) use of aspirin; Z20.822 Contact with and (suspected) exposure to COVID-19
CPT/HCPCS: 36415; 80048-TC; 80076-TC; 85025-TC; G0480

== ENCOUNTER 2024-07-11 10:11 | Emergency (ER) | payer MEDICARE, OTHER ==
[~2024-07-11] VITALS: Ht 180.3 cm; Wt 113.4 kg
[2024-07-11 10:14] VITALS: BP 161/100; TEMP 98.4; O2SAT 97
[2024-07-11 11:17] LABS: BASOPHILS # (AUTO) 0.1 K/uL (0.0-0.2); BASOPHILS % (AUTO) 1.7 % (0.0-2.0); EOSINOPHILS # (AUTO) 0.1 K/uL (0.0-0.7); EOSINOPHILS % (AUTO) 1.8 % (0.0-6.0); HEMATOCRIT 38 % (39-51); HEMOGLOBIN 12.2 g/dL (13.5-17.5); LYMPHOCYTES # (AUTO) 0.8 K/uL (0.8-4.8); LYMPHOCYTES % (AUTO) 18.8 % (20.0-44.0); MEAN CORPUSCULAR HEMOGLOBIN 28 PG (26.0-33.0); MEAN CORPUSCULAR HGB CONC 32 g/dl (31.0-36.0); MEAN CORPUSCULAR VOLUME 87 fL (80-96); MONOCYTES # (AUTO) 0.4 K/uL (0.1-1.30); MONOCYTES % (AUTO) 9.5 % (2.0-12.0); NEUTROPHILS # (AUTO) 2.8 K/uL (1.8-8.9); NEUTROPHILS % (AUTO) 68.2 % (43.0-81.0); PLATELET COUNT (AUTO) 207 K/uL (150-450); RED BLOOD CELL COUNT(AUTO) 4.36 MIL/uL (4.5-6.0); RED CELL DISTRIBUTION WIDTH 19.1 % (11.5-15.0); WHITE BLOOD COUNT (AUTO) 4.1 K/uL (4.3-11.0)
[2024-07-11 11:21] LABS: APPEARANCE,URINE CLEAR (CLEAR); BILIRUBIN,URINE NEGATIVE (NEGATIVE); BLOOD, URINE NEGATIVE Ery/uL (NEGATIVE); COLOR,URINE YELLOW (YELLOW); KETONES,URINE NEGATIVE (NEGATIVE); LEUKOCYTE ESTERASE ,URINE NEGATIVE (NEGATIVE); NITRITE, URINE NEGATIVE (NEGATIVE); PH,URINE 5.5 (5.0-8.0); PROTEIN,URINE NEGATIVE (NEGATIVE); UGLUCOSE NEGATIVE (NEGATIVE); UROBILINOGEN,URINE 0.2 EU/dL (0.2)
[2024-07-11 11:29] LABS: CALCIUM, SERUM 8.5 mg/dL (8.5-10.1); CARBON DIOXIDE 26 mmol/L (21-32); CHLORIDE 111 mmol/L (98-107); CREATININE 1.1 mg/dL (0.6-1.3); GLUCOSE 127 mg/dL (74-106); POTASSIUM 3.6 mmol/L (3.5-5.1); SODIUM SERUM 147 mmol/L (136-145); UREA NITROGEN, BLOOD 16 mg/dL (7-18)
[2024-07-11 11:37] LABS: ALANINE AMINOTRANSFERASE 28 U/L (12-78); ALBUMIN 3.1 g/dL (3.4-5.0); ALCOHOL, BLOOD < 3 mg/dL (0-10); ALKALINE PHOSPHATASE 81 U/L (46-116); ASPARTATE AMINOTRANSFERASE 26 U/L (15-37); BILIRUBIN,DIRECT 0.1 mg/dL (0.0-0.2); BILIRUBIN,TOTAL 0.2 mg/dL (0.2-1.0); TOTAL PROTEIN, SERUM 7.2 g/dL (6.4-8.2)
[2024-07-11 11:47] LABS: ACETAMINOPHEN <10 ug/ml (10-30); SALICYLATE 2.6 mg/dL (2.8-20.0)
[2024-07-11 11:57] LABS: VALPROIC ACID 1 ug/mL (50-100)
[2024-07-11 12:11] LABS: AMPHETAMINE, URINE NEGATIVE (NEGATIVE); BARBITURATE, URINE NEGATIVE (NEGATIVE); COCCAINE, URINE NEGATIVE (NEGATIVE); OPIATE, URINE NEGATIVE (NEGATIVE); PHENCYCLIDINE SCREEN,URINE NEGATIVE (NEGATIVE)
[2024-07-11 12:13] LABS: BENZODIAZEPINE, URINE POSITIVE (NEGATIVE); CANNABINOID, URINE POSITIVE (NEGATIVE)
== END 2024-07-11 16:29 ==
LOC: ER 10:17
DX: R45.851 Suicidal ideations (principal); R94.31 Abnormal electrocardiogram [ECG] [EKG]; F17.200 Nicotine dependence, unspecified, uncomplicated; F12.90 Cannabis use, unspecified, uncomplicated; E78.00 Pure hypercholesterolemia, unspecified; F31.9 Bipolar disorder, unspecified; I10 Essential (primary) hypertension; Z79.82 Long term (current) use of aspirin; Z60.2 Problems related to living alone; Z20.822 Contact with and (suspected) exposure to COVID-19
CPT/HCPCS: 36415; 80048-TC; 80076-TC; 80164-TC; 84484-TC; 85025-TC; G0480

== ENCOUNTER 2024-08-16 22:55 | Emergency (ER) | payer MEDICARE, OTHER ==
[~2024-08-16] VITALS: Ht 180.3 cm; Wt 113.4 kg
[2024-08-17 00:01] LABS: APPEARANCE,URINE CLEAR (CLEAR); BASOPHILS # (AUTO) 0.1 K/uL (0.0-0.2); BASOPHILS % (AUTO) 1.1 % (0.0-2.0); BILIRUBIN,URINE 1+ (NEGATIVE); BLOOD, URINE NEGATIVE Ery/uL (NEGATIVE); COLOR,URINE YELLOW (YELLOW); EOSINOPHILS # (AUTO) 0.1 K/uL (0.0-0.7); EOSINOPHILS % (AUTO) 0.8 % (0.0-6.0); HEMATOCRIT 39 % (39-51); HEMOGLOBIN 12.6 g/dL (13.5-17.5); KETONES,URINE 1+ mg/dL (NEGATIVE); LEUKOCYTE ESTERASE ,URINE NEGATIVE (NEGATIVE); LYMPHOCYTES # (AUTO) 1.1 K/uL (0.8-4.8); LYMPHOCYTES % (AUTO) 14.9 % (20.0-44.0); MEAN CORPUSCULAR HEMOGLOBIN 28 PG (26.0-33.0); MEAN CORPUSCULAR HGB CONC 32 g/dl (31.0-36.0); MEAN CORPUSCULAR VOLUME 87 fL (80-96); MONOCYTES # (AUTO) 0.6 K/uL (0.1-1.30); NEUTROPHILS # (AUTO) 5.3 K/uL (1.8-8.9); NEUTROPHILS % (AUTO) 74.2 % (43.0-81.0); NITRITE, URINE NEGATIVE (NEGATIVE); PLATELET COUNT (AUTO) 184 K/uL (150-450); PROTEIN,URINE NEGATIVE (NEGATIVE); RED BLOOD CELL COUNT(AUTO) 4.45 MIL/uL (4.5-6.0); RED CELL DISTRIBUTION WIDTH 17.7 % (11.5-15.0); UGLUCOSE NEGATIVE (NEGATIVE); UROBILINOGEN,URINE 0.2 EU/dL (0.2); WHITE BLOOD COUNT (AUTO) 7.1 K/uL (4.3-11.0)
[2024-08-17 00:09] LABS: CALCIUM, SERUM 9.3 mg/dL (8.5-10.1); CARBON DIOXIDE 25 mmol/L (21-32); CHLORIDE 104 mmol/L (98-107); CREATININE 1.8 mg/dL (0.6-1.3); GLUCOSE 126 mg/dL (74-106); POTASSIUM 3.6 mmol/L (3.5-5.1); SODIUM SERUM 139 mmol/L (136-145); UREA NITROGEN, BLOOD 23 mg/dL (7-18)
[2024-08-17 00:23] LABS: ALANINE AMINOTRANSFERASE 28 U/L (12-78); ALBUMIN 3.6 g/dL (3.4-5.0); ALCOHOL, BLOOD 75 mg/dL (0-10); ALKALINE PHOSPHATASE 84 U/L (46-116); ASPARTATE AMINOTRANSFERASE 26 U/L (15-37); BILIRUBIN,DIRECT 0.1 mg/dL (0.0-0.2); BILIRUBIN,TOTAL 0.3 mg/dL (0.2-1.0); SALICYLATE 2.8 mg/dL (2.8-20.0); TOTAL PROTEIN, SERUM 7.9 g/dL (6.4-8.2)
[2024-08-17 00:24] LABS: ACETAMINOPHEN <10 ug/ml (10-30)
[2024-08-17 00:37] LABS: ADD URINE CULTURE YES; BACTERIA,URINE 2+ /HPF (None Seen); RBC,URINE NONE SEEN /HPF (0-2); WBC,URINE NONE SEEN /HPF (0-3)
[2024-08-17 00:38] LABS: FINE GRANULAR CASTS,URINE Few /LPF (None Seen); MUCUS,URINE Moderate /LPF (None Seen)
[2024-08-17 00:49] LABS: AMPHETAMINE, URINE POSITIVE (NEGATIVE); BARBITURATE, URINE NEGATIVE (NEGATIVE); BENZODIAZEPINE, URINE NEGATIVE (NEGATIVE); CANNABINOID, URINE POSITIVE (NEGATIVE); COCCAINE, URINE NEGATIVE (NEGATIVE); OPIATE, URINE NEGATIVE (NEGATIVE); PHENCYCLIDINE SCREEN,URINE NEGATIVE (NEGATIVE)
[2024-08-17 10:05] VITALS: TEMP 98
[2024-08-17 10:28] VITALS: BP 141/71; O2SAT 100
== END 2024-08-17 10:28 ==
LOC: ER 23:04
DX: R45.851 Suicidal ideations (principal); F32.A Depression, unspecified; F19.10 Other psychoactive substance abuse, uncomplicated; F17.200 Nicotine dependence, unspecified, uncomplicated; F12.90 Cannabis use, unspecified, uncomplicated; E78.00 Pure hypercholesterolemia, unspecified; I10 Essential (primary) hypertension; Z79.82 Long term (current) use of aspirin; Z86.16 Personal history of COVID-19; Z88.8 Allergy status to other drugs, medicaments and biological substances; Z60.2 Problems related to living alone; Z20.822 Contact with and (suspected) exposure to COVID-19
CPT/HCPCS: 36415; 80048-TC; 80076-TC; 81001; 85025-TC; G0480

== ENCOUNTER 2024-08-30 00:02 | Emergency (ER) | payer MEDICARE, OTHER ==
[~2024-08-30] VITALS: Ht 180.3 cm; Wt 113.4 kg
[2024-08-30 02:28] LABS: BASOPHILS # (AUTO) 0.5 K/uL (0.0-0.2); EOSINOPHILS # (AUTO) 0.1 K/uL (0.0-0.7); EOSINOPHILS % (AUTO) 1.6 % (0.0-6.0); HEMATOCRIT 39 % (39-51); HEMOGLOBIN 12.6 g/dL (13.5-17.5); LYMPHOCYTES # (AUTO) 1.2 K/uL (0.8-4.8); LYMPHOCYTES % (AUTO) 20.9 % (20.0-44.0); MEAN CORPUSCULAR HEMOGLOBIN 28 PG (26.0-33.0); MEAN CORPUSCULAR HGB CONC 32 g/dl (31.0-36.0); MEAN CORPUSCULAR VOLUME 88 fL (80-96); MONOCYTES # (AUTO) 0.5 K/uL (0.1-1.30); MONOCYTES % (AUTO) 9.3 % (2.0-12.0); NEUTROPHILS # (AUTO) 3.2 K/uL (1.8-8.9); NEUTROPHILS % (AUTO) 58.5 % (43.0-81.0); PLATELET COUNT (AUTO) 232 K/uL (150-450); RED BLOOD CELL COUNT(AUTO) 4.43 MIL/uL (4.5-6.0); RED CELL DISTRIBUTION WIDTH 18.3 % (11.5-15.0); WHITE BLOOD COUNT (AUTO) 5.5 K/uL (4.3-11.0)
[2024-08-30 02:30] LABS: BASOPHILS % (AUTO) 9.7 % (0.0-2.0)
[2024-08-30 02:44] LABS: ALANINE AMINOTRANSFERASE 27 U/L (12-78); ALBUMIN 3.4 g/dL (3.4-5.0); ALCOHOL, BLOOD 29 mg/dL (0-10); ALKALINE PHOSPHATASE 76 U/L (46-116); ASPARTATE AMINOTRANSFERASE 19 U/L (15-37); BILIRUBIN,DIRECT 0.1 mg/dL (0.0-0.2); BILIRUBIN,TOTAL 0.2 mg/dL (0.2-1.0); CALCIUM, SERUM 9.5 mg/dL (8.5-10.1); CARBON DIOXIDE 29 mmol/L (21-32); CHLORIDE 103 mmol/L (98-107); CREATININE 1.7 mg/dL (0.6-1.3); GLUCOSE 132 mg/dL (74-106); POTASSIUM 3.8 mmol/L (3.5-5.1); SODIUM SERUM 139 mmol/L (136-145); TOTAL PROTEIN, SERUM 7.7 g/dL (6.4-8.2); UREA NITROGEN, BLOOD 26 mg/dL (7-18)
[2024-08-30 02:49] LABS: ACETAMINOPHEN <10 ug/ml (10-30); SALICYLATE 1.9 mg/dL (2.8-20.0)
[2024-08-30 06:19] LABS: APPEARANCE,URINE CLEAR (CLEAR); BILIRUBIN,URINE NEGATIVE (NEGATIVE); BLOOD, URINE NEGATIVE Ery/uL (NEGATIVE); COLOR,URINE YELLOW (YELLOW); KETONES,URINE TRACE mg/dL (NEGATIVE); LEUKOCYTE ESTERASE ,URINE NEGATIVE (NEGATIVE); NITRITE, URINE NEGATIVE (NEGATIVE); PROTEIN,URINE NEGATIVE (NEGATIVE); UGLUCOSE NEGATIVE (NEGATIVE); UROBILINOGEN,URINE 0.2 EU/dL (0.2)
[2024-08-30 06:42] LABS: BARBITURATE, URINE NEGATIVE (NEGATIVE); BENZODIAZEPINE, URINE NEGATIVE (NEGATIVE); COCCAINE, URINE NEGATIVE (NEGATIVE); OPIATE, URINE NEGATIVE (NEGATIVE); PHENCYCLIDINE SCREEN,URINE NEGATIVE (NEGATIVE)
[2024-08-30 06:45] LABS: AMPHETAMINE, URINE POSITIVE (NEGATIVE); CANNABINOID, URINE POSITIVE (NEGATIVE)
[2024-08-30 06:51] LABS: ADD URINE CULTURE NO; BACTERIA,URINE Rare /HPF (None Seen); RBC,URINE 0-2 /HPF (0-2); SQUAMOUS EPITHELIAL CELL,UR Moderate /HPF (None Seen); WBC,URINE 0-2 /HPF (0-3)
[2024-08-30 10:00] VITALS: BP 112/67; TEMP 98.2; O2SAT 97
== END 2024-08-30 10:45 ==
LOC: ER 00:14
DX: R45.851 Suicidal ideations (principal); E78.00 Pure hypercholesterolemia, unspecified; F12.90 Cannabis use, unspecified, uncomplicated; F17.200 Nicotine dependence, unspecified, uncomplicated; F29 Unspecified psychosis not due to a substance or known physiological condition; F31.9 Bipolar disorder, unspecified; I10 Essential (primary) hypertension; Z59.00 Homelessness unspecified; Z79.82 Long term (current) use of aspirin; Z86.16 Personal history of COVID-19; Z88.8 Allergy status to other drugs, medicaments and biological substances; Z60.2 Problems related to living alone; Z20.822 Contact with and (suspected) exposure to COVID-19
CPT/HCPCS: 36415; 80048-TC; 80076-TC; 81001; 85025-TC; G0480

== ENCOUNTER 2024-10-23 17:25 | Emergency (ER) | payer MEDICARE, OTHER ==
[~2024-10-23] VITALS: Ht 180.3 cm; Wt 113.4 kg
[2024-10-23 17:52] LABS: APPEARANCE,URINE Clear (CLEAR); BILIRUBIN,URINE Negative (NEGATIVE); BLOOD, URINE Negative Ery/uL (NEGATIVE); COLOR,URINE YELLOW (YELLOW); KETONES,URINE Trace mg/dL (NEGATIVE); LEUKOCYTE ESTERASE ,URINE Negative (NEGATIVE); NITRITE, URINE Negative (NEGATIVE); PH,URINE 5.5 (5.0-8.0); PROTEIN,URINE Negative (NEGATIVE); UGLUCOSE Negative (NEGATIVE); UROBILINOGEN,URINE 0.2 EU/dL (0.2)
[2024-10-23 17:56] LABS: ADD URINE CULTURE NO; BACTERIA,URINE None seen /HPF (None Seen); RBC,URINE 0-2 /HPF (0-2); SQUAMOUS EPITHELIAL CELL,UR None Seen /HPF (None Seen); WBC,URINE 0-2 /HPF (0-3)
[2024-10-23 18:00] LABS: AMPHETAMINE, URINE NEGATIVE (NEGATIVE); BARBITURATE, URINE NEGATIVE (NEGATIVE); BENZODIAZEPINE, URINE NEGATIVE (NEGATIVE); COCCAINE, URINE NEGATIVE (NEGATIVE); OPIATE, URINE NEGATIVE (NEGATIVE); PHENCYCLIDINE SCREEN,URINE NEGATIVE (NEGATIVE)
[2024-10-23 18:01] LABS: CANNABINOID, URINE POSITIVE (NEGATIVE)
[2024-10-23 18:17] LABS: BASOPHILS % (AUTO) 0.8 % (0.0-2.0); EOSINOPHILS % (AUTO) 0.4 % (0.0-6.0); HEMATOCRIT 40 % (39-51); HEMOGLOBIN 11.8 g/dL (13.5-17.5); LYMPHOCYTES % (AUTO) 45.2 % (20.0-44.0); MEAN CORPUSCULAR HEMOGLOBIN 28 PG (26.0-33.0); MEAN CORPUSCULAR HGB CONC 30 g/dl (31.0-36.0); MEAN CORPUSCULAR VOLUME 94 fL (80-96); MONOCYTES # (AUTO) 0.2 K/uL (0.1-1.30); MONOCYTES % (AUTO) 5.6 % (2.0-12.0); NEUTROPHILS # (AUTO) 2.1 K/uL (1.8-8.9); PLATELET COUNT (AUTO) 190 K/uL (150-450); RED BLOOD CELL COUNT(AUTO) 4.23 MIL/uL (4.5-6.0); RED CELL DISTRIBUTION WIDTH 19.1 % (11.5-15.0); WHITE BLOOD COUNT (AUTO) 4.4 K/uL (4.3-11.0)
[2024-10-23 18:38] LABS: ALANINE AMINOTRANSFERASE 33 U/L (12-78); ALBUMIN 3.3 g/dL (3.4-5.0); ALCOHOL, BLOOD 175 mg/dL (0-10); ALKALINE PHOSPHATASE 74 U/L (46-116); ASPARTATE AMINOTRANSFERASE 21 U/L (15-37); BILIRUBIN,DIRECT 0.1 mg/dL (0.0-0.2); BILIRUBIN,TOTAL 0.3 mg/dL (0.2-1.0); CARBON DIOXIDE 21 mmol/L (21-32); CHLORIDE 106 mmol/L (98-107); POTASSIUM 3.7 mmol/L (3.5-5.1); SODIUM SERUM 139 mmol/L (136-145); TOTAL PROTEIN, SERUM 7.3 g/dL (6.4-8.2); UREA NITROGEN, BLOOD 17 mg/dL (7-18)
[2024-10-23 18:40] LABS: SALICYLATE 1.4 mg/dL (2.8-20.0)
[2024-10-23 18:57] LABS: CALCIUM, SERUM 8.8 mg/dL (8.5-10.1); GLUCOSE 99 mg/dL (74-106)
[2024-10-23 18:58] LABS: ACETAMINOPHEN <10 ug/ml (10-30)
[2024-10-23 21:19] LABS: LYMPHOCYTES % (MANUAL) 26 % (16-48); MONOCYTES % (MANUAL) 7 % (0-11.0); NEUTROPHILS % (MANUAL) 67 (42-76); PLATELET ESTIMATE ADEQUATE
[2024-10-23 21:22] LABS: ANISOCYTOSIS 1+; TARGET CELLS 1+
[2024-10-24 08:00] VITALS: BP 138/84; TEMP 98.1; O2SAT 98
== END 2024-10-24 11:37 ==
LOC: ER 17:39
DX: F23 Brief psychotic disorder (principal); R45.851 Suicidal ideations; E78.5 Hyperlipidemia, unspecified; F12.90 Cannabis use, unspecified, uncomplicated; F17.200 Nicotine dependence, unspecified, uncomplicated; I10 Essential (primary) hypertension; Z79.82 Long term (current) use of aspirin; Z20.822 Contact with and (suspected) exposure to COVID-19; Z60.2 Problems related to living alone
CPT/HCPCS: 36415; 80048-TC; 80076-TC; 81001; 85025-TC; G0480

== ENCOUNTER 2024-12-03 15:50 | Emergency (ER) | payer MEDICARE, OTHER ==
[~2024-12-03] VITALS: Ht 180.3 cm; Wt 111.1 kg
[2024-12-03 18:00] LABS: APPEARANCE,URINE CLEAR (CLEAR); BILIRUBIN,URINE NEGATIVE (NEGATIVE); BLOOD, URINE NEGATIVE Ery/uL (NEGATIVE); COLOR,URINE YELLOW (YELLOW); KETONES,URINE 1+ mg/dL (NEGATIVE); LEUKOCYTE ESTERASE ,URINE NEGATIVE (NEGATIVE); NITRITE, URINE NEGATIVE (NEGATIVE); PH,URINE 5.5 (5.0-8.0); PROTEIN,URINE TRACE mg/dl (NEGATIVE); UGLUCOSE NEGATIVE (NEGATIVE); UROBILINOGEN,URINE 0.2 EU/dL (0.2)
[2024-12-03 18:06] LABS: BASOPHILS # (AUTO) 0.1 K/uL (0.0-0.2); BASOPHILS % (AUTO) 0.8 % (0.0-2.0); EOSINOPHILS % (AUTO) 0.5 % (0.0-6.0); HEMATOCRIT 38 % (39-51); LYMPHOCYTES # (AUTO) 0.9 K/uL (0.8-4.8); LYMPHOCYTES % (AUTO) 10.8 % (20.0-44.0); MEAN CORPUSCULAR HEMOGLOBIN 27 PG (26.0-33.0); MEAN CORPUSCULAR HGB CONC 32 g/dl (31.0-36.0); MEAN CORPUSCULAR VOLUME 84 fL (80-96); MONOCYTES # (AUTO) 0.8 K/uL (0.1-1.30); NEUTROPHILS # (AUTO) 6.6 K/uL (1.8-8.9); NEUTROPHILS % (AUTO) 77.9 % (43.0-81.0); PLATELET COUNT (AUTO) 206 K/uL (150-450); RED BLOOD CELL COUNT(AUTO) 4.48 MIL/uL (4.5-6.0); RED CELL DISTRIBUTION WIDTH 18.5 % (11.5-15.0); WHITE BLOOD COUNT (AUTO) 8.5 K/uL (4.3-11.0)
[2024-12-03 18:08] LABS: BARBITURATE, URINE NEGATIVE (NEGATIVE); BENZODIAZEPINE, URINE NEGATIVE (NEGATIVE); OPIATE, URINE NEGATIVE (NEGATIVE); PHENCYCLIDINE SCREEN,URINE NEGATIVE (NEGATIVE)
[2024-12-03 18:11] LABS: AMPHETAMINE, URINE POSITIVE (NEGATIVE); CANNABINOID, URINE POSITIVE (NEGATIVE); COCCAINE, URINE POSITIVE (NEGATIVE)
[2024-12-03 18:23] LABS: ADD URINE CULTURE NO; BACTERIA,URINE Few /HPF (None Seen); RBC,URINE 0-2 /HPF (0-2); SQUAMOUS EPITHELIAL CELL,UR 0-2 /HPF (None Seen); WBC,URINE 0-2 /HPF (0-3)
[2024-12-03 18:34] LABS: ALBUMIN 3.6 g/dL (3.4-5.0); BILIRUBIN,DIRECT 0.1 mg/dL (0.0-0.2); BILIRUBIN,TOTAL 0.5 mg/dL (0.2-1.0); CREATININE 1.7 mg/dL (0.6-1.3); POTASSIUM 3.8 mmol/L (3.5-5.1); TOTAL PROTEIN, SERUM 7.6 g/dL (6.4-8.2)
[2024-12-03 18:37] LABS: SALICYLATE 2.1 mg/dL (2.8-20.0)
[2024-12-03 22:13] VITALS: BP 146/64; TEMP 99; O2SAT 99
== END 2024-12-04 00:02 ==
LOC: ER 15:55
DX: R45.851 Suicidal ideations (principal); F31.9 Bipolar disorder, unspecified; I10 Essential (primary) hypertension; E78.00 Pure hypercholesterolemia, unspecified; F12.90 Cannabis use, unspecified, uncomplicated; F17.200 Nicotine dependence, unspecified, uncomplicated; Z79.82 Long term (current) use of aspirin; Z60.2 Problems related to living alone; Z20.822 Contact with and (suspected) exposure to COVID-19
CPT/HCPCS: 36415; 80048-TC; 80076-TC; 81001; 85025-TC; G0480

== ENCOUNTER 2024-12-25 07:29 | Emergency (ER) | payer MEDICARE, OTHER ==
[~2024-12-25] VITALS: Ht 180.3 cm; Wt 122.5 kg
[2024-12-25] MEDS ORDERED: BUPR150T5 PO (07:51)
[2024-12-25] MEDS ORDERED: DIVA500T2 PO (07:52)
[2024-12-25 08:05] LABS: BASOPHILS % (AUTO) 0.5 % (0.0-2.0); EOSINOPHILS % (AUTO) 0.2 % (0.0-6.0); HEMATOCRIT 37 % (39-51); HEMOGLOBIN 11.7 g/dL (13.5-17.5); LYMPHOCYTES # (AUTO) 0.8 K/uL (0.8-4.8); LYMPHOCYTES % (AUTO) 10.9 % (20.0-44.0); MEAN CORPUSCULAR HEMOGLOBIN 26 PG (26.0-33.0); MEAN CORPUSCULAR HGB CONC 32 g/dl (31.0-36.0); MEAN CORPUSCULAR VOLUME 83 fL (80-96); MONOCYTES # (AUTO) 0.7 K/uL (0.1-1.30); MONOCYTES % (AUTO) 9.4 % (2.0-12.0); PLATELET COUNT (AUTO) 223 K/uL (150-450); RED BLOOD CELL COUNT(AUTO) 4.42 MIL/uL (4.5-6.0); RED CELL DISTRIBUTION WIDTH 18.7 % (11.5-15.0); WHITE BLOOD COUNT (AUTO) 7.6 K/uL (4.3-11.0)
[2024-12-25 08:18] LABS: ALANINE AMINOTRANSFERASE 69 U/L (12-78); ALBUMIN 3.4 g/dL (3.4-5.0); ALKALINE PHOSPHATASE 81 U/L (46-116); ASPARTATE AMINOTRANSFERASE 57 U/L (15-37); BILIRUBIN,DIRECT 0.2 mg/dL (0.0-0.2); BILIRUBIN,TOTAL 0.6 mg/dL (0.2-1.0); CALCIUM, SERUM 9.1 mg/dL (8.5-10.1); CARBON DIOXIDE 26 mmol/L (21-32); CHLORIDE 103 mmol/L (98-107); CREATININE 1.3 mg/dL (0.6-1.3); GLUCOSE 124 mg/dL (74-106); POTASSIUM 3.7 mmol/L (3.5-5.1); SODIUM SERUM 138 mmol/L (136-145); TOTAL PROTEIN, SERUM 7.6 g/dL (6.4-8.2); UREA NITROGEN, BLOOD 24 mg/dL (7-18)
[2024-12-25 08:22] LABS: ACETAMINOPHEN <10 ug/ml (10-30); ALCOHOL, BLOOD < 3 mg/dL (0-10); SALICYLATE 1.4 mg/dL (2.8-20.0)
[2024-12-25 12:41] LABS: APPEARANCE,URINE CLEAR (CLEAR); BILIRUBIN,URINE NEGATIVE (NEGATIVE); BLOOD, URINE NEGATIVE Ery/uL (NEGATIVE); COLOR,URINE YELLOW (YELLOW); KETONES,URINE 1+ mg/dL (NEGATIVE); LEUKOCYTE ESTERASE ,URINE NEGATIVE (NEGATIVE); NITRITE, URINE NEGATIVE (NEGATIVE); PROTEIN,URINE NEGATIVE (NEGATIVE); UGLUCOSE NEGATIVE (NEGATIVE); UROBILINOGEN,URINE 0.2 EU/dL (0.2)
[2024-12-25 12:49] LABS: BARBITURATE, URINE NEGATIVE (NEGATIVE); COCCAINE, URINE NEGATIVE (NEGATIVE); OPIATE, URINE NEGATIVE (NEGATIVE); PHENCYCLIDINE SCREEN,URINE NEGATIVE (NEGATIVE)
[2024-12-25 13:01] LABS: ADD URINE CULTURE NO; BACTERIA,URINE Rare /HPF (None Seen); RBC,URINE NONE SEEN /HPF (0-2); SQUAMOUS EPITHELIAL CELL,UR 0-2 /HPF (None Seen); WBC,URINE NONE SEEN /HPF (0-3)
[2024-12-25 13:09] LABS: AMPHETAMINE, URINE POSITIVE (NEGATIVE); BENZODIAZEPINE, URINE POSITIVE (NEGATIVE)
[2024-12-25 13:10] LABS: CANNABINOID, URINE POSITIVE (NEGATIVE)
[2024-12-25 18:20] VITALS: BP 141/85; TEMP 98; O2SAT 100
== END 2024-12-25 18:21 ==
LOC: ER 07:35
DX: F23 Brief psychotic disorder (principal); R45.851 Suicidal ideations; F12.90 Cannabis use, unspecified, uncomplicated; I10 Essential (primary) hypertension; E78.5 Hyperlipidemia, unspecified; F17.200 Nicotine dependence, unspecified, uncomplicated; Z79.82 Long term (current) use of aspirin; Z79.899 Other long term (current) drug therapy; Z60.2 Problems related to living alone; Z20.822 Contact with and (suspected) exposure to COVID-19
CPT/HCPCS: 36415; 80048-TC; 80076-TC; 81001; 85025-TC; G0480

== ENCOUNTER 2025-02-28 16:59 | Emergency (ER) | payer MEDICARE, OTHER ==
[~2025-02-28] VITALS: Ht 180.3 cm; Wt 117.9 kg
[~2025-02-28 16:59] MED LIST changes: +BUPR150T5 PO; +DIVA500T2 PO
[2025-02-28 17:38] LABS: BASOPHILS # (AUTO) 0.1 K/uL (0.0-0.2); BASOPHILS % (AUTO) 1.2 % (0.0-2.0); EOSINOPHILS % (AUTO) 0.8 % (0.0-6.0); HEMATOCRIT 37 % (39-51); HEMOGLOBIN 11.8 g/dL (13.5-17.5); LYMPHOCYTES # (AUTO) 1.9 K/uL (0.8-4.8); LYMPHOCYTES % (AUTO) 37.6 % (20.0-44.0); MEAN CORPUSCULAR HEMOGLOBIN 27 PG (26.0-33.0); MEAN CORPUSCULAR HGB CONC 32 g/dl (31.0-36.0); MEAN CORPUSCULAR VOLUME 83 fL (80-96); MONOCYTES # (AUTO) 0.4 K/uL (0.1-1.30); MONOCYTES % (AUTO) 7.4 % (2.0-12.0); NEUTROPHILS # (AUTO) 2.7 K/uL (1.8-8.9); PLATELET COUNT (AUTO) 240 K/uL (150-450); RED BLOOD CELL COUNT(AUTO) 4.43 MIL/uL (4.5-6.0)
[2025-02-28 17:46] LABS: CALCIUM, SERUM 8.9 mg/dL (8.5-10.1); CARBON DIOXIDE 24 mmol/L (21-32); CHLORIDE 107 mmol/L (98-107); CREATININE 1.4 mg/dL (0.6-1.3); GLUCOSE 111 mg/dL (74-106); POTASSIUM 3.7 mmol/L (3.5-5.1); SODIUM SERUM 139 mmol/L (136-145); UREA NITROGEN, BLOOD 21 mg/dL (7-18)
[2025-02-28 17:47] LABS: APPEARANCE,URINE CLEAR (CLEAR); BILIRUBIN,URINE Negative (NEGATIVE); BLOOD, URINE Negative Ery/uL (NEGATIVE); COLOR,URINE YELLOW (YELLOW); KETONES,URINE 15 mg/dL (NEGATIVE); LEUKOCYTE ESTERASE ,URINE Negative (NEGATIVE); PH,URINE 5.5 (5.0-8.0); PROTEIN,URINE Negative (NEGATIVE); UGLUCOSE Negative (NEGATIVE); UROBILINOGEN,URINE 0.2 EU/dL (0.2)
[2025-02-28 17:48] LABS: NITRITE, URINE NEGATIVE (NEGATIVE)
[2025-02-28 17:49] LABS: ADD URINE CULTURE NO; BACTERIA,URINE None seen /HPF (None Seen); CALCIUM OXALATE CRYSTALS,UR Rare /HPF (None Seen); RBC,URINE 0-2 /HPF (0-2); SQUAMOUS EPITHELIAL CELL,UR None Seen /HPF (None Seen); WBC,URINE 0-2 /HPF (0-3)
[2025-02-28 17:52] LABS: ALANINE AMINOTRANSFERASE 35 U/L (12-78); ALBUMIN 3.5 g/dL (3.4-5.0); ALCOHOL, BLOOD 116 mg/dL (0-10); ALKALINE PHOSPHATASE 76 U/L (46-116); ASPARTATE AMINOTRANSFERASE 37 U/L (15-37); BILIRUBIN,TOTAL 0.2 mg/dL (0.2-1.0); TOTAL PROTEIN, SERUM 7.9 g/dL (6.4-8.2)
[2025-02-28 17:53] LABS: ACETAMINOPHEN <10 ug/ml (10-30)
[2025-02-28 17:56] LABS: AMPHETAMINE, URINE NEGATIVE (NEGATIVE); BARBITURATE, URINE NEGATIVE (NEGATIVE); BENZODIAZEPINE, URINE NEGATIVE (NEGATIVE); PHENCYCLIDINE SCREEN,URINE NEGATIVE (NEGATIVE)
[2025-02-28 17:57] LABS: CANNABINOID, URINE POSITIVE (NEGATIVE); COCCAINE, URINE POSITIVE (NEGATIVE)
[2025-02-28 18:31] LABS: OPIATE, URINE NEGATIVE (NEGATIVE)
[2025-02-28 19:10] VITALS: BP 135/78; TEMP 98.6; O2SAT 99
== END 2025-02-28 22:35 ==
LOC: ER 17:02
DX: R45.851 Suicidal ideations (principal); F23 Brief psychotic disorder; E78.5 Hyperlipidemia, unspecified; F14.10 Cocaine abuse, uncomplicated; F17.200 Nicotine dependence, unspecified, uncomplicated; F31.9 Bipolar disorder, unspecified; I10 Essential (primary) hypertension; F12.10 Cannabis abuse, uncomplicated; F19.10 Other psychoactive substance abuse, uncomplicated; Z79.82 Long term (current) use of aspirin; Z79.899 Other long term (current) drug therapy; Z20.822 Contact with and (suspected) exposure to COVID-19; Z59.00 Homelessness unspecified; Z88.8 Allergy status to other drugs, medicaments and biological substances; Z60.2 Problems related to living alone
CPT/HCPCS: 36415; 80048-TC; 80076-TC; 81001; 85025-TC; G0480

== ENCOUNTER 2025-03-02 17:19 | Emergency (ER) | payer MEDICARE, OTHER ==
[~2025-03-02] VITALS: Ht 180.3 cm; Wt 117.9 kg
[2025-03-02 18:01] LABS: BASOPHILS % (AUTO) 0.7 % (0.0-2.0); EOSINOPHILS % (AUTO) 0.7 % (0.0-6.0); HEMATOCRIT 37 % (39-51); HEMOGLOBIN 11.8 g/dL (13.5-17.5); LYMPHOCYTES # (AUTO) 1.3 K/uL (0.8-4.8); LYMPHOCYTES % (AUTO) 30.5 % (20.0-44.0); MEAN CORPUSCULAR HEMOGLOBIN 27 PG (26.0-33.0); MEAN CORPUSCULAR HGB CONC 32 g/dl (31.0-36.0); MEAN CORPUSCULAR VOLUME 84 fL (80-96); MONOCYTES # (AUTO) 0.3 K/uL (0.1-1.30); NEUTROPHILS # (AUTO) 2.6 K/uL (1.8-8.9); NEUTROPHILS % (AUTO) 60.1 % (43.0-81.0); PLATELET COUNT (AUTO) 254 K/uL (150-450); RED BLOOD CELL COUNT(AUTO) 4.41 MIL/uL (4.5-6.0); RED CELL DISTRIBUTION WIDTH 19.8 % (11.5-15.0); WHITE BLOOD COUNT (AUTO) 4.3 K/uL (4.3-11.0)
[2025-03-02 18:11] LABS: CALCIUM, SERUM 9.1 mg/dL (8.5-10.1); CARBON DIOXIDE 21 mmol/L (21-32); CHLORIDE 105 mmol/L (98-107); CREATININE 1.6 mg/dL (0.6-1.3); GLUCOSE 134 mg/dL (74-106); POTASSIUM 3.8 mmol/L (3.5-5.1); SODIUM SERUM 140 mmol/L (136-145); UREA NITROGEN, BLOOD 22 mg/dL (7-18)
[2025-03-02 18:20] LABS: ACETAMINOPHEN <10 ug/ml (10-30); ALANINE AMINOTRANSFERASE 26 U/L (12-78); ALBUMIN 3.5 g/dL (3.4-5.0); ALCOHOL, BLOOD 135 mg/dL (0-10); ALKALINE PHOSPHATASE 80 U/L (46-116); ASPARTATE AMINOTRANSFERASE 19 U/L (15-37); BILIRUBIN,DIRECT 0.1 mg/dL (0.0-0.2); BILIRUBIN,TOTAL 0.3 mg/dL (0.2-1.0); SALICYLATE 2.6 mg/dL (2.8-20.0); TOTAL PROTEIN, SERUM 7.7 g/dL (6.4-8.2)
[2025-03-02 18:28] LABS: APPEARANCE,URINE CLEAR (CLEAR); BILIRUBIN,URINE NEGATIVE (NEGATIVE); BLOOD, URINE NEGATIVE Ery/uL (NEGATIVE); COLOR,URINE YELLOW (YELLOW); KETONES,URINE TRACE mg/dL (NEGATIVE); LEUKOCYTE ESTERASE ,URINE NEGATIVE (NEGATIVE); NITRITE, URINE NEGATIVE (NEGATIVE); PROTEIN,URINE NEGATIVE (NEGATIVE); UGLUCOSE NEGATIVE (NEGATIVE); UROBILINOGEN,URINE 0.2 EU/dL (0.2)
[2025-03-02 18:39] LABS: AMPHETAMINE, URINE NEGATIVE (NEGATIVE); BARBITURATE, URINE NEGATIVE (NEGATIVE); COCCAINE, URINE NEGATIVE (NEGATIVE); OPIATE, URINE NEGATIVE (NEGATIVE); PHENCYCLIDINE SCREEN,URINE NEGATIVE (NEGATIVE)
[2025-03-02 18:40] LABS: ADD URINE CULTURE NO; BACTERIA,URINE Rare /HPF (None Seen); BENZODIAZEPINE, URINE POSITIVE (NEGATIVE); CANNABINOID, URINE POSITIVE (NEGATIVE); RBC,URINE 0-2 /HPF (0-2); SQUAMOUS EPITHELIAL CELL,UR 0-2 /HPF (None Seen); WBC,URINE 0-2 /HPF (0-3)
[2025-03-02 22:27] VITALS: BP 110/56; TEMP 98.5; O2SAT 97
== END 2025-03-02 22:48 ==
LOC: ER 17:33
DX: R45.851 Suicidal ideations (principal); I10 Essential (primary) hypertension; E78.00 Pure hypercholesterolemia, unspecified; F12.90 Cannabis use, unspecified, uncomplicated; F17.200 Nicotine dependence, unspecified, uncomplicated; F31.9 Bipolar disorder, unspecified; Z79.82 Long term (current) use of aspirin; Z79.899 Other long term (current) drug therapy; Z60.2 Problems related to living alone; Z20.822 Contact with and (suspected) exposure to COVID-19
CPT/HCPCS: 36415; 80048-TC; 80076-TC; 81001; 85025-TC; G0480

== ENCOUNTER 2025-03-18 00:03 | Emergency (ER) | payer MEDICARE, OTHER ==
[~2025-03-18] VITALS: Ht 180.3 cm; Wt 117.9 kg
[2025-03-18 01:27] LABS: APPEARANCE,URINE CLEAR (CLEAR); BLOOD, URINE NEGATIVE Ery/uL (NEGATIVE); LEUKOCYTE ESTERASE ,URINE NEGATIVE (NEGATIVE); NITRITE, URINE NEGATIVE (NEGATIVE); UGLUCOSE NEGATIVE (NEGATIVE)
[2025-03-18 01:28] LABS: PLATELET COUNT (AUTO) 240 K/uL (150-450); RED BLOOD CELL COUNT(AUTO) 4.45 MIL/uL (4.5-6.0); RED CELL DISTRIBUTION WIDTH 20.8 % (11.5-15.0); WHITE BLOOD COUNT (AUTO) 9.0 K/uL (4.3-11.0)
[2025-03-18 01:29] LABS: ADD URINE CULTURE NO; SQUAMOUS EPITHELIAL CELL,UR Few /HPF (None Seen)
[2025-03-18 01:39] LABS: ALCOHOL, BLOOD 124 mg/dL (0-10); ASPARTATE AMINOTRANSFERASE 18 U/L (15-37); CALCIUM, SERUM 9.5 mg/dL (8.5-10.1); CREATININE 2.4 mg/dL (0.6-1.3); SODIUM SERUM 139 mmol/L (136-145); TOTAL PROTEIN, SERUM 8.0 g/dL (6.4-8.2); UREA NITROGEN, BLOOD 33 mg/dL (7-18)
[2025-03-18 02:06] LABS: AMPHETAMINE, URINE NEGATIVE (NEGATIVE); BARBITURATE, URINE NEGATIVE (NEGATIVE); BENZODIAZEPINE, URINE NEGATIVE (NEGATIVE); COCCAINE, URINE NEGATIVE (NEGATIVE); OPIATE, URINE NEGATIVE (NEGATIVE)
[2025-03-18 02:13] LABS: CANNABINOID, URINE POSITIVE (NEGATIVE)
[2025-03-18 11:23] VITALS: BP 120/70; TEMP 98.4; O2SAT 97
== END 2025-03-18 11:23 ==
LOC: ER 00:14
DX: R45.851 Suicidal ideations (principal); R44.0 Auditory hallucinations; R79.89 Other specified abnormal findings of blood chemistry; E78.00 Pure hypercholesterolemia, unspecified; F10.10 Alcohol abuse, uncomplicated; F12.90 Cannabis use, unspecified, uncomplicated; F17.200 Nicotine dependence, unspecified, uncomplicated; F31.9 Bipolar disorder, unspecified; I12.9 Hypertensive chronic kidney disease with stage 1 through stage 4 chronic kidney disease, or unspecified chronic kidney disease; N18.9 Chronic kidney disease, unspecified; Z79.82 Long term (current) use of aspirin; Z79.899 Other long term (current) drug therapy; Z20.822 Contact with and (suspected) exposure to COVID-19; Z86.79 Personal history of other diseases of the circulatory system; Z87.09 Personal history of other diseases of the respiratory system; Z60.2 Problems related to living alone; Z88.8 Allergy status to other drugs, medicaments and biological substances; Y90.6 Blood alcohol level of 120-199 mg/100 ml
CPT/HCPCS: 36415; 80048-TC; 80076-TC; 81001; 85025-TC; G0480

== ENCOUNTER 2025-03-18 19:25 | Emergency (ER) | payer MEDICARE, OTHER | END 2025-03-19 00:22 | disposition left against medical advice (07) | LOC: ER 19:28 | DX: Z76.89 Persons encountering health services in other specified circumstances (principal); Z53.21 Procedure and treatment not carried out due to patient leaving prior to being seen by health care provider | CPT/HCPCS: A4223; J7030 ==

== ENCOUNTER 2025-03-21 23:07 | Emergency (ER) | payer MEDICARE, OTHER ==
[2025-03-22 01:33] LABS: APPEARANCE,URINE CLEAR (CLEAR); BLOOD, URINE NEGATIVE Ery/uL (NEGATIVE); LEUKOCYTE ESTERASE ,URINE NEGATIVE (NEGATIVE); NITRITE, URINE NEGATIVE (NEGATIVE); UGLUCOSE NEGATIVE (NEGATIVE)
[2025-03-22 01:36] LABS: AMPHETAMINE, URINE NEGATIVE (NEGATIVE); BARBITURATE, URINE NEGATIVE (NEGATIVE); COCCAINE, URINE NEGATIVE (NEGATIVE); OPIATE, URINE NEGATIVE (NEGATIVE)
[2025-03-22 01:40] LABS: BENZODIAZEPINE, URINE POSITIVE (NEGATIVE); CANNABINOID, URINE POSITIVE (NEGATIVE)
[2025-03-22 01:46] LABS: ADD URINE CULTURE NO; SQUAMOUS EPITHELIAL CELL,UR Few /HPF (None Seen)
== END 2025-03-22 01:08 | disposition left against medical advice (07) ==
LOC: ER 23:10
DX: R45.851 Suicidal ideations (principal); F12.90 Cannabis use, unspecified, uncomplicated; I10 Essential (primary) hypertension; F17.200 Nicotine dependence, unspecified, uncomplicated; E78.00 Pure hypercholesterolemia, unspecified; Z79.82 Long term (current) use of aspirin; Z79.899 Other long term (current) drug therapy; Z60.2 Problems related to living alone; Z53.21 Procedure and treatment not carried out due to patient leaving prior to being seen by health care provider
CPT/HCPCS: 81001

== ENCOUNTER 2025-03-23 17:14 | Emergency (ER) | payer MEDICARE, OTHER ==
[~2025-03-23] VITALS: Ht 177.8 cm; Wt 117.9 kg
[2025-03-23 17:17] VITALS: TEMP 98.3
[2025-03-23 17:42] LABS: APPEARANCE,URINE CLEAR (CLEAR); BLOOD, URINE NEGATIVE Ery/uL (NEGATIVE); LEUKOCYTE ESTERASE ,URINE NEGATIVE (NEGATIVE); NITRITE, URINE NEGATIVE (NEGATIVE); UGLUCOSE NEGATIVE (NEGATIVE)
[2025-03-23 17:52] LABS: ADD URINE CULTURE YES; SQUAMOUS EPITHELIAL CELL,UR Moderate /HPF (None Seen)
[2025-03-23 17:53] LABS: COARSE GRANULAR CASTS,URINE Few /LPF (None Seen)
[2025-03-23 17:55] LABS: AMPHETAMINE, URINE NEGATIVE (NEGATIVE); BARBITURATE, URINE NEGATIVE (NEGATIVE); COCCAINE, URINE NEGATIVE (NEGATIVE); OPIATE, URINE NEGATIVE (NEGATIVE)
[2025-03-23 17:58] LABS: BENZODIAZEPINE, URINE POSITIVE (NEGATIVE); CANNABINOID, URINE POSITIVE (NEGATIVE)
[2025-03-23 18:04] LABS: PLATELET COUNT (AUTO) 262 K/uL (150-450); RED BLOOD CELL COUNT(AUTO) 4.68 MIL/uL (4.5-6.0); RED CELL DISTRIBUTION WIDTH 20.0 % (11.5-15.0); WHITE BLOOD COUNT (AUTO) 5.7 K/uL (4.3-11.0)
[2025-03-23 18:11] LABS: CALCIUM, SERUM 9.2 mg/dL (8.5-10.1); CREATININE 2.0 mg/dL (0.6-1.3); SODIUM SERUM 142 mmol/L (136-145); UREA NITROGEN, BLOOD 23 mg/dL (7-18)
[2025-03-23 18:18] LABS: ALCOHOL, BLOOD 161 mg/dL (0-10); ASPARTATE AMINOTRANSFERASE 19 U/L (15-37); TOTAL PROTEIN, SERUM 8.3 g/dL (6.4-8.2)
[2025-03-23 22:03] VITALS: BP 134/99; O2SAT 96
== END 2025-03-23 23:13 ==
LOC: ER 17:14
DX: R45.851 Suicidal ideations (principal); I10 Essential (primary) hypertension; F17.200 Nicotine dependence, unspecified, uncomplicated; F12.90 Cannabis use, unspecified, uncomplicated; E78.00 Pure hypercholesterolemia, unspecified; Z79.82 Long term (current) use of aspirin; Z79.899 Other long term (current) drug therapy; Z60.2 Problems related to living alone; Z20.822 Contact with and (suspected) exposure to COVID-19
CPT/HCPCS: 36415; 80048-TC; 80076-TC; 81001; 85025-TC; 87086-TC; G0480

== ENCOUNTER 2025-04-16 13:44 | Emergency (ER) | payer MEDICARE, OTHER ==
[~2025-04-16] VITALS: Ht 182.9 cm; Wt 117.9 kg
[2025-04-16 15:02] LABS: PLATELET COUNT (AUTO) 204 K/uL (150-450); RED BLOOD CELL COUNT(AUTO) 4.60 MIL/uL (4.5-6.0); RED CELL DISTRIBUTION WIDTH 20.6 % (11.5-15.0); WHITE BLOOD COUNT (AUTO) 6.6 K/uL (4.3-11.0)
[2025-04-16 15:06] LABS: APPEARANCE,URINE CLEAR (CLEAR); BLOOD, URINE NEGATIVE Ery/uL (NEGATIVE); LEUKOCYTE ESTERASE ,URINE NEGATIVE (NEGATIVE); NITRITE, URINE NEGATIVE (NEGATIVE); UGLUCOSE NEGATIVE (NEGATIVE)
[2025-04-16 15:17] LABS: ALCOHOL, BLOOD 96.0 mg/dL (0-10); ASPARTATE AMINOTRANSFERASE 20.0 U/L (15-37); CALCIUM, SERUM 9.0 mg/dL (8.5-10.1); CREATININE 1.6 mg/dL (0.6-1.3); SODIUM SERUM 140.0 mmol/L (136-145); TOTAL PROTEIN, SERUM 7.5 g/dL (6.4-8.2); UREA NITROGEN, BLOOD 33.0 mg/dL (7-18)
[2025-04-16 15:24] LABS: ADD URINE CULTURE NO; AMPHETAMINE, URINE NEGATIVE (NEGATIVE); BARBITURATE, URINE NEGATIVE (NEGATIVE); BENZODIAZEPINE, URINE NEGATIVE (NEGATIVE); CANNABINOID, URINE NEGATIVE (NEGATIVE); COCCAINE, URINE NEGATIVE (NEGATIVE); OPIATE, URINE NEGATIVE (NEGATIVE); SQUAMOUS EPITHELIAL CELL,UR 0-2 /HPF (None Seen)
[2025-04-16 15:25] LABS: HYALINE CASTS, URINE Rare /LPF (None Seen)
[2025-04-16 15:55] VITALS: BP 136/85; TEMP 98.2; O2SAT 98
== END 2025-04-16 16:10 ==
LOC: ER 14:25
DX: F32.A Depression, unspecified (principal); R45.851 Suicidal ideations; I10 Essential (primary) hypertension; F12.90 Cannabis use, unspecified, uncomplicated; E78.00 Pure hypercholesterolemia, unspecified; F17.200 Nicotine dependence, unspecified, uncomplicated; Z79.82 Long term (current) use of aspirin; Z79.899 Other long term (current) drug therapy; Z60.2 Problems related to living alone; Z20.822 Contact with and (suspected) exposure to COVID-19; Z59.00 Homelessness unspecified
CPT/HCPCS: 36415; 80048-TC; 80076-TC; 81001; 85025-TC; G0480

== ENCOUNTER 2025-05-06 18:37 | Emergency (ER) | payer MEDICARE, OTHER ==
[~2025-05-06] VITALS: Ht 180.3 cm; Wt 122.5 kg
[2025-05-06 18:53] VITALS: BP 82/48; TEMP 98.5; O2SAT 95
[2025-05-06 19:07] LABS: PLATELET COUNT (AUTO) 225 K/uL (150-450); RED BLOOD CELL COUNT(AUTO) 4.70 MIL/uL (4.5-6.0); RED CELL DISTRIBUTION WIDTH 20.0 % (11.5-15.0); WHITE BLOOD COUNT (AUTO) 5.7 K/uL (4.3-11.0)
[2025-05-06 19:14] LABS: CALCIUM, SERUM 9.1 mg/dL (8.5-10.1); CREATININE 2.3 mg/dL (0.6-1.3); SODIUM SERUM 140.0 mmol/L (136-145); UREA NITROGEN, BLOOD 23.0 mg/dL (7-18)
[2025-05-06 19:20] LABS: ALCOHOL, BLOOD 123.0 mg/dL (0-10); ASPARTATE AMINOTRANSFERASE 15.0 U/L (15-37); TOTAL PROTEIN, SERUM 7.6 g/dL (6.4-8.2)
[2025-05-06 21:26] LABS: APPEARANCE,URINE CLEAR (CLEAR); BLOOD, URINE NEGATIVE Ery/uL (NEGATIVE); LEUKOCYTE ESTERASE ,URINE NEGATIVE (NEGATIVE); NITRITE, URINE NEGATIVE (NEGATIVE); UGLUCOSE NEGATIVE (NEGATIVE)
[2025-05-06 21:27] LABS: AMPHETAMINE, URINE NEGATIVE (NEGATIVE); BARBITURATE, URINE NEGATIVE (NEGATIVE); BENZODIAZEPINE, URINE NEGATIVE (NEGATIVE); CANNABINOID, URINE POSITIVE (NEGATIVE); COCCAINE, URINE NEGATIVE (NEGATIVE); OPIATE, URINE NEGATIVE (NEGATIVE)
[2025-05-06 21:34] LABS: ADD URINE CULTURE YES; HYALINE CASTS, URINE Moderate /LPF (None Seen); SQUAMOUS EPITHELIAL CELL,UR None Seen /HPF (None Seen)
== END 2025-05-07 00:51 ==
LOC: ER 18:42
DX: R45.851 Suicidal ideations (principal); F32.A Depression, unspecified; F17.200 Nicotine dependence, unspecified, uncomplicated; I10 Essential (primary) hypertension; F12.90 Cannabis use, unspecified, uncomplicated; E78.00 Pure hypercholesterolemia, unspecified; Z79.82 Long term (current) use of aspirin; Z79.899 Other long term (current) drug therapy; Z60.2 Problems related to living alone; Z20.822 Contact with and (suspected) exposure to COVID-19
CPT/HCPCS: 36415; 80048-TC; 80076-TC; 81001; 85025-TC; 87086-TC; G0480

== ENCOUNTER 2025-05-19 18:00 | Emergency (ER) | payer MEDICARE, OTHER ==
[~2025-05-19] VITALS: Ht 175.3 cm; Wt 122.5 kg
[2025-05-19 18:15] VITALS: TEMP 98.2
[2025-05-19 19:01] LABS: PLATELET COUNT (AUTO) 186 K/uL (150-450); RED BLOOD CELL COUNT(AUTO) 4.38 MIL/uL (4.5-6.0); RED CELL DISTRIBUTION WIDTH 20.7 % (11.5-15.0); WHITE BLOOD COUNT (AUTO) 4.9 K/uL (4.3-11.0)
[2025-05-19 19:11] LABS: CALCIUM, SERUM 9.2 mg/dL (8.5-10.1); CREATININE 1.3 mg/dL (0.6-1.3); SODIUM SERUM 146.0 mmol/L (136-145); UREA NITROGEN, BLOOD 18.0 mg/dL (7-18)
[2025-05-19 19:17] LABS: ALCOHOL, BLOOD 61.0 mg/dL (0-10); ASPARTATE AMINOTRANSFERASE 26.0 U/L (15-37); TOTAL PROTEIN, SERUM 7.3 g/dL (6.4-8.2)
[2025-05-19 20:05] VITALS: BP 134/77; O2SAT 96
[2025-05-19 20:39] LABS: APPEARANCE,URINE CLEAR (CLEAR); BLOOD, URINE NEGATIVE Ery/uL (NEGATIVE); LEUKOCYTE ESTERASE ,URINE NEGATIVE (NEGATIVE); NITRITE, URINE NEGATIVE (NEGATIVE); UGLUCOSE NEGATIVE (NEGATIVE)
[2025-05-19 20:45] LABS: ADD URINE CULTURE NO; SQUAMOUS EPITHELIAL CELL,UR 0-2 /HPF (None Seen)
[2025-05-19 20:52] LABS: BARBITURATE, URINE NEGATIVE (NEGATIVE); BENZODIAZEPINE, URINE NEGATIVE (NEGATIVE); COCCAINE, URINE NEGATIVE (NEGATIVE); OPIATE, URINE NEGATIVE (NEGATIVE)
[2025-05-19 20:53] LABS: AMPHETAMINE, URINE POSITIVE (NEGATIVE); CANNABINOID, URINE POSITIVE (NEGATIVE)
[2025-05-19 22:28] LABS: LYMPHOCYTES % (MANUAL) 29 % (16-48); NEUTROPHILS % (MANUAL) 62 (42-76)
[2025-05-19 22:29] LABS: MONOCYTES % (MANUAL) 9 % (0-11.0); PLATELET ESTIMATE ADEQUATE
== END 2025-05-20 00:57 ==
LOC: ER 18:08
DX: R45.851 Suicidal ideations (principal); F32.A Depression, unspecified; F19.10 Other psychoactive substance abuse, uncomplicated; F12.90 Cannabis use, unspecified, uncomplicated; E78.00 Pure hypercholesterolemia, unspecified; F17.200 Nicotine dependence, unspecified, uncomplicated; I11.9 Hypertensive heart disease without heart failure; Z79.82 Long term (current) use of aspirin; Z79.899 Other long term (current) drug therapy; Z60.2 Problems related to living alone; Z20.822 Contact with and (suspected) exposure to COVID-19; Z59.00 Homelessness unspecified
CPT/HCPCS: 36415; 80048-TC; 80076-TC; 81001; 85027-TC; G0480

== ENCOUNTER 2025-07-29 20:03 | Emergency (ER) | payer MEDICARE, OTHER ==
[~2025-07-29] VITALS: Ht 180.3 cm; Wt 113.4 kg
[2025-07-29 23:13] VITALS: BP 141/93; TEMP 98; O2SAT 96
[2025-07-29 23:42] LABS: APPEARANCE,URINE CLEAR (CLEAR); BLOOD, URINE NEGATIVE Ery/uL (NEGATIVE); LEUKOCYTE ESTERASE ,URINE NEGATIVE (NEGATIVE); NITRITE, URINE NEGATIVE (NEGATIVE); UGLUCOSE NEGATIVE (NEGATIVE)
[2025-07-29 23:54] LABS: AMPHETAMINE, URINE NEGATIVE (NEGATIVE); BARBITURATE, URINE NEGATIVE (NEGATIVE); BENZODIAZEPINE, URINE NEGATIVE (NEGATIVE); COCCAINE, URINE NEGATIVE (NEGATIVE); OPIATE, URINE NEGATIVE (NEGATIVE)
[2025-07-29 23:55] LABS: PLATELET COUNT (AUTO) 207 K/uL (150-450); RED BLOOD CELL COUNT(AUTO) 4.51 MIL/uL (4.5-6.0); RED CELL DISTRIBUTION WIDTH 20.0 % (11.5-15.0); WHITE BLOOD COUNT (AUTO) 9.2 K/uL (4.3-11.0)
[2025-07-29 23:57] LABS: CANNABINOID, URINE POSITIVE (NEGATIVE)
[2025-07-30 00:02] LABS: CALCIUM, SERUM 9.2 mg/dL (8.5-10.1); CREATININE 1.5 mg/dL (0.6-1.3); SODIUM SERUM 140 mmol/L (136-145); UREA NITROGEN, BLOOD 21 mg/dL (7-18)
[2025-07-30 00:08] LABS: ASPARTATE AMINOTRANSFERASE 18 U/L (15-37); TOTAL PROTEIN, SERUM 7.6 g/dL (6.4-8.2)
== END 2025-07-30 03:15 ==
LOC: ER 20:07
DX: R45.851 Suicidal ideations (principal); F19.10 Other psychoactive substance abuse, uncomplicated; F17.200 Nicotine dependence, unspecified, uncomplicated; I11.9 Hypertensive heart disease without heart failure; F31.9 Bipolar disorder, unspecified; Z02.89 Encounter for other administrative examinations; F12.90 Cannabis use, unspecified, uncomplicated; E78.00 Pure hypercholesterolemia, unspecified; Z79.82 Long term (current) use of aspirin; Z79.899 Other long term (current) drug therapy; Z60.2 Problems related to living alone
CPT/HCPCS: 36415; 80048-TC; 80076-TC; 85025-TC; G0480

== ENCOUNTER 2025-09-04 18:47 | Emergency (ER) | payer MEDICARE, OTHER ==
[~2025-09-04] VITALS: Ht 180.3 cm; Wt 117.9 kg
[2025-09-04 19:33] LABS: PLATELET COUNT (AUTO) 222 K/uL (150-450); RED BLOOD CELL COUNT(AUTO) 4.48 MIL/uL (4.5-6.0); RED CELL DISTRIBUTION WIDTH 19.6 % (11.5-15.0); WHITE BLOOD COUNT (AUTO) 5.2 K/uL (4.3-11.0)
[2025-09-04 19:35] LABS: CALCIUM, SERUM 8.9 mg/dL (8.5-10.1); CREATININE 2.1 mg/dL (0.6-1.3); SODIUM SERUM 140 mmol/L (136-145); UREA NITROGEN, BLOOD 22 mg/dL (7-18)
[2025-09-04 19:43] LABS: ALCOHOL, BLOOD 97 mg/dL (0-10); ASPARTATE AMINOTRANSFERASE 16 U/L (15-37); TOTAL PROTEIN, SERUM 7.4 g/dL (6.4-8.2)
[2025-09-04 20:40] LABS: EOSINOPHILS % (MANUAL) 1 % (0-4); LYMPHOCYTES % (MANUAL) 27 % (16-48); MONOCYTES % (MANUAL) 8 % (0-11.0); NEUTROPHILS % (MANUAL) 64 (42-76); PLATELET ESTIMATE ADEQUATE
[2025-09-05] MEDS ORDERED: AMMONIA NASAL INHALATION 1 EA PACK NAS ONE (03:44)
[2025-09-05] MEDS: AMMONIA NASAL INHALATION 1 EA PACK NAS ONE (03:48)
[2025-09-05 09:18] VITALS: BP 112/78; TEMP 97.9; O2SAT 98
== END 2025-09-05 09:19 ==
LOC: ER 18:54
DX: R45.851 Suicidal ideations (principal); F31.9 Bipolar disorder, unspecified; E78.00 Pure hypercholesterolemia, unspecified; F12.90 Cannabis use, unspecified, uncomplicated; F17.200 Nicotine dependence, unspecified, uncomplicated; I11.9 Hypertensive heart disease without heart failure; Z02.89 Encounter for other administrative examinations; Z79.82 Long term (current) use of aspirin; Z79.899 Other long term (current) drug therapy
CPT/HCPCS: 36415; 80048-TC; 80076-TC; 85027-TC; 98960; G0480

== ENCOUNTER 2025-09-10 05:16 | Emergency (ER) | payer MEDICARE, OTHER ==
[~2025-09-10] VITALS: Ht 180.3 cm; Wt 117.9 kg
[2025-09-10 07:36] LABS: PLATELET COUNT (AUTO) 232 K/uL (150-450); RED BLOOD CELL COUNT(AUTO) 4.68 MIL/uL (4.5-6.0); RED CELL DISTRIBUTION WIDTH 19.8 % (11.5-15.0); WHITE BLOOD COUNT (AUTO) 8.6 K/uL (4.3-11.0)
[2025-09-10 07:49] LABS: ALCOHOL, BLOOD < 3 mg/dL (0-10); ASPARTATE AMINOTRANSFERASE 26 U/L (15-37); CALCIUM, SERUM 8.8 mg/dL (8.5-10.1); CREATININE 1.2 mg/dL (0.6-1.3); SODIUM SERUM 139 mmol/L (136-145); TOTAL PROTEIN, SERUM 7.9 g/dL (6.4-8.2); UREA NITROGEN, BLOOD 23 mg/dL (7-18)
[2025-09-10 07:55] LABS: APPEARANCE,URINE CLEAR (CLEAR); BLOOD, URINE NEGATIVE Ery/uL (NEGATIVE); LEUKOCYTE ESTERASE ,URINE NEGATIVE (NEGATIVE); NITRITE, URINE NEGATIVE (NEGATIVE); UGLUCOSE NEGATIVE (NEGATIVE)
[2025-09-10 08:05] LABS: ADD URINE CULTURE NO; BARBITURATE, URINE NEGATIVE (NEGATIVE); BENZODIAZEPINE, URINE NEGATIVE (NEGATIVE); COCCAINE, URINE NEGATIVE (NEGATIVE); OPIATE, URINE NEGATIVE (NEGATIVE); SQUAMOUS EPITHELIAL CELL,UR None Seen /HPF (None Seen)
[2025-09-10 08:08] LABS: AMPHETAMINE, URINE POSITIVE (NEGATIVE); CANNABINOID, URINE POSITIVE (NEGATIVE)
[2025-09-10 12:42] VITALS: BP 139/76; TEMP 97.8; O2SAT 99
== END 2025-09-10 12:42 | disposition home or self-care (01) ==
LOC: ER 05:16
DX: F31.9 Bipolar disorder, unspecified (principal); E78.00 Pure hypercholesterolemia, unspecified; F12.90 Cannabis use, unspecified, uncomplicated; F17.200 Nicotine dependence, unspecified, uncomplicated; I11.9 Hypertensive heart disease without heart failure; Z79.82 Long term (current) use of aspirin; Z79.899 Other long term (current) drug therapy; Z60.2 Problems related to living alone
CPT/HCPCS: 36415; 80048-TC; 80076-TC; 81001; 85025-TC; G0480

== ENCOUNTER 2025-09-14 16:26 | Inpatient (IN) | payer MEDICARE, OTHER ==
[~2025-09-14] VITALS: Ht 210.8 cm; Wt 117.9 kg
[2025-09-14 18:41] LABS: PLATELET COUNT (AUTO) 159 K/uL (150-450); RED BLOOD CELL COUNT(AUTO) 4.72 MIL/uL (4.5-6.0); RED CELL DISTRIBUTION WIDTH 20.7 % (11.5-15.0); WHITE BLOOD COUNT (AUTO) 4.9 K/uL (4.3-11.0)
[2025-09-14 18:47] LABS: CALCIUM, SERUM 8.9 mg/dL (8.5-10.1); CREATININE 1.7 mg/dL (0.6-1.3); SODIUM SERUM 139 mmol/L (136-145); UREA NITROGEN, BLOOD 24 mg/dL (7-18)
[2025-09-14 18:53] LABS: ALCOHOL, BLOOD 118 mg/dL (0-10); ASPARTATE AMINOTRANSFERASE 23 U/L (15-37); TOTAL PROTEIN, SERUM 7.8 g/dL (6.4-8.2)
[2025-09-14 20:39] LABS: APPEARANCE,URINE CLEAR (CLEAR); BLOOD, URINE NEGATIVE Ery/uL (NEGATIVE); LEUKOCYTE ESTERASE ,URINE NEGATIVE (NEGATIVE); NITRITE, URINE NEGATIVE (NEGATIVE); UGLUCOSE NEGATIVE (NEGATIVE)
[2025-09-14 20:48] LABS: AMPHETAMINE, URINE NEGATIVE (NEGATIVE); BARBITURATE, URINE NEGATIVE (NEGATIVE); BENZODIAZEPINE, URINE NEGATIVE (NEGATIVE); COCCAINE, URINE NEGATIVE (NEGATIVE); OPIATE, URINE NEGATIVE (NEGATIVE)
[2025-09-14 20:54] LABS: CANNABINOID, URINE POSITIVE (NEGATIVE)
[2025-09-14 21:22] VITALS: O2SAT 95
[2025-09-14] MEDS ORDERED: ONDANSETRON HCL/PF 4 MG/2 ML VIAL IVP PRN (21:30)
[2025-09-14] MEDS ORDERED: MORPHINE SULFATE INJ 2 MG/ML DISP.SYRIN IV PRN (21:30)
[2025-09-14] MEDS ORDERED: hydrALAZINE HCL IV 20 MG VIAL IV PRN (21:30)
[2025-09-14] MEDS ORDERED: ACETAMINOPHEN 325 MG TABLET PO PRN (21:30)
[2025-09-14] MEDS ORDERED: LORAZEPAM INJ 2 MG/ML VIAL IV PRN (21:30)
[2025-09-14 21:42] LABS: ADD URINE CULTURE YES; COARSE GRANULAR CASTS,URINE Moderate /LPF (None Seen); SQUAMOUS EPITHELIAL CELL,UR Moderate /HPF (None Seen)
[2025-09-14 22:25] VITALS: BP_SYST 86; TEMP 98.2; O2SAT 98
[2025-09-14] MEDS: ATORVASTATIN 40 MG TABLET PO SCH (23:47)
[2025-09-14] MEDS: IV NS 0.9% 1,000 ML IV SCH (23:47)
[2025-09-15 04:00] VITALS: BP 122/75; TEMP 98.1; O2SAT 98
[2025-09-15 06:26] LABS: ASPARTATE AMINOTRANSFERASE 18.0 U/L (15-37); CALCIUM, SERUM 8.5 mg/dL (8.5-10.1); CREATININE 1.3 mg/dL (0.6-1.3); PHOSPHORUS 3.9 mg/dL (2.5-4.9); SODIUM SERUM 141.0 mmol/L (136-145); TOTAL PROTEIN, SERUM 6.9 g/dL (6.4-8.2); UREA NITROGEN, BLOOD 24.0 mg/dL (7-18)
[2025-09-15 06:32] LABS: PLATELET COUNT (AUTO) 215 K/uL (150-450); RED BLOOD CELL COUNT(AUTO) 4.19 MIL/uL (4.5-6.0); RED CELL DISTRIBUTION WIDTH 19.9 % (11.5-15.0); WHITE BLOOD COUNT (AUTO) 6.5 K/uL (4.3-11.0)
[2025-09-15 08:00] VITALS: BP 136/82; TEMP 97.7; O2SAT 97
[2025-09-15] MEDS: HEPARIN SODIUM, PORCINE 5000 UNITS/1 ML VIAL SQ SCH (09:00)
[2025-09-15] MEDS: DIVALPROEX SODIUM 500 MG TABLET.DR PO SCH (09:00)
[2025-09-15] MEDS: buPROPion SR 150 MG TABLET.ER PO SCH (09:00)
[2025-09-15] MEDS: ASPIRIN EC 81 MG TABLET.DR PO SCH (09:00)
[2025-09-15] MEDS ORDERED: IV NS 0.9% 1,000 ML IV PRN (09:41)
== END 2025-09-15 09:18 | disposition left against medical advice (07) | DRG 303 ==
LOC: ER 16:26 → TELE 21:48
PROVIDERS: ADMIT Internal Medicine; ATTEND Nurse Practitioner Acute Care
DX: I25.10 Atherosclerotic heart disease of native coronary artery without angina pectoris (principal); I13.0 Hypertensive heart and chronic kidney disease with heart failure and stage 1 through stage 4 chronic kidney disease, or unspecified chronic kidney disease; N17.9 Acute kidney failure, unspecified; Z59.00 Homelessness unspecified; I50.9 Heart failure, unspecified; E11.22 Type 2 diabetes mellitus with diabetic chronic kidney disease; D64.9 Anemia, unspecified; E66.01 Morbid (severe) obesity due to excess calories; F10.129 Alcohol abuse with intoxication, unspecified; F31.9 Bipolar disorder, unspecified; N18.9 Chronic kidney disease, unspecified; F14.10 Cocaine abuse, uncomplicated; E78.00 Pure hypercholesterolemia, unspecified; F17.200 Nicotine dependence, unspecified, uncomplicated; Z79.899 Other long term (current) drug therapy; K29.20 Alcoholic gastritis without bleeding; Z68.26 Body mass index [BMI] 26.0-26.9, adult; Z71.6 Tobacco abuse counseling; Y90.5 Blood alcohol level of 100-119 mg/100 ml; E78.5 Hyperlipidemia, unspecified; Z88.8 Allergy status to other drugs, medicaments and biological substances; Z79.82 Long term (current) use of aspirin; Z91.51 Personal history of suicidal behavior
CPT/HCPCS: 36415; 71045-TC; 80048-TC; 80053-TC; 80076-TC; 80164-TC; 81001; 83735-TC; 84100-TC; 84484-TC; 85025-TC; 87081-TC; 87086-TC; A4223; G0378; G0480; J1644; J7030